=== PATIENT | male | born 1955 | race Caucasian/White ===

== ENCOUNTER → 2019-05-28 | Outpatient (CLI) | payer BC, SELFPAY ==
[2019-05-28 12:44] LABS: ALB/GLOB Ratio 0.8 RATIO (0.9-2.4); AST(SGOT) 39 U/L (15-37); Alanine Aminotransfer ALT/SGPT 38 U/L (16-61); Albumin, Serum 3.3 g/dL (3.2-5.0); Alkaline Phosphatase 64 U/L (45-117); Anion Gap 11 (5-15); BUN 16 mg/dL (7-18); BUN/Creat Ratio 12.8 RATIO (10-20); Calcium,Total 8.2 mg/dL (8.5-10.1); Chloride 97 mmol/L (98-107); Cholesterol 543 mg/dL (200); Creatinine, Serum 1.25 mg/dL (0.70-1.30); EST Glomerular Filtration Rate 62 mL/min (>60); Est Glom Filt Rate - Afr Amer 75 mL/min (>60); Globulin 4.3 g/dL (2.2-4.2); Glucose 255 mg/dL (74-106); High Density Lipoprotein 34 mg/dL; Potassium 4.3 mmol/L (3.5-5.1); Protein, Total 7.6 g/dL (6.4-8.2); Sodium Level 133 mmol/L (136-145); Triglycerides 3893 mg/dL
== END | disposition home or self-care (01) ==
LOC: LAB 08:33
PROVIDERS: Family Provider Family Medicine; PCP Family Medicine; Referring Provider Internal Medicine Cardiovascular Disease; Visit Provider Internal Medicine Cardiovascular Disease
DX: I10 Essential (primary) hypertension (principal); E78.2 Mixed hyperlipidemia
CPT/HCPCS: 36415; 80053; 80061

== ENCOUNTER → 2019-06-04 08:15 | Outpatient (CLI) | payer BC, SELFPAY ==
[2019-06-04 10:36] LABS: AST(SGOT) 41 U/L (15-37); Alanine Aminotransfer ALT/SGPT 36 U/L (16-61); Albumin, Serum 3.6 g/dL (3.2-5.0); Alkaline Phosphatase 62 U/L (45-117); Bilirubin, Direct 0.09 mg/dL (0.00-0.30); Cholesterol 504 mg/dL (200); Globulin 3.7 g/dL (2.2-4.2); High Density Lipoprotein 32 mg/dL; Protein, Total 7.3 g/dL (6.4-8.2); Triglycerides 3453 mg/dL
== END ==
PROVIDERS: Family Provider Family Medicine; PCP Family Medicine
DX: E78.2 Mixed hyperlipidemia (principal)
CPT/HCPCS: 36415; 80061; 80076

== ENCOUNTER → 2020-05-12 | Outpatient (CLI) | payer BC, SELFPAY ==
[2020-05-12 10:50] LABS: AST(SGOT) 25 U/L (15-37); Alanine Aminotransfer ALT/SGPT 37 U/L (16-61); Albumin, Serum 4.2 g/dL (3.2-5.0); Alkaline Phosphatase 42 U/L (45-117); Anion Gap 7 (5-15); BUN 56 mg/dL (7-18); BUN/Creat Ratio 31.6 RATIO (10-20); Calcium,Total 9.6 mg/dL (8.5-10.1); Chloride 107 mmol/L (98-107); Cholesterol 138 mg/dL (200); Creatinine, Serum 1.77 mg/dL (0.70-1.30); EST Glomerular Filtration Rate 41 mL/min (>60); Est Glom Filt Rate - Afr Amer 50 mL/min (>60); Glucose 123 mg/dL (74-106); High Density Lipoprotein 37 mg/dL; Potassium 4.7 mmol/L (3.5-5.1); Protein, Total 8.2 g/dL (6.4-8.2); Sodium Level 138 mmol/L (136-145); Triglycerides 159 mg/dL; Very Low Density Lipoprotein 32 mg/dL (5-40)
[2020-05-12 11:45] LABS: Hemoglobin A1c 6.2 % (3.8-5.6)
== END | disposition home or self-care (01) ==
LOC: LAB 08:34
PROVIDERS: PCP Family Medicine
DX: I25.10 Atherosclerotic heart disease of native coronary artery without angina pectoris (principal); E78.2 Mixed hyperlipidemia
CPT/HCPCS: 36415; 80053; 80061; 83036

== ENCOUNTER 2021-04-14 15:29 | Inpatient (IN) | payer BC, SELFPAY ==
[2021-04-14] VITALS (17 sets, daily range): BP systolic 112–147; BP diastolic 64–96; PULSE 81–114; RESP 18–34; TEMP 36.8–37.6; O2SAT 84–95; BMI 41.5; BMI 40.1
--- NOTE | 2021-04-14 15:52 | CT_ITS ---
STUDY: CTA CHEST REASON FOR EXAM: Male, 65 years old. Shortness of breath evaluation for pulmonary embolism RADIATION DOSAGE (If Supplied By Facility): CTDIvol = ( 19.74 ) mGy, DLP = ( 768.91 ) mGycm TECHNIQUE: The examination was performed with the intravenous administration of IV 75mL Isovue-370. Post-processing of the angiographic images was performed, with multiplanar reformation and 3D reconstruction. Individualized dose optimization techniques were used for this CT. COMPARISON: None. FINDINGS: Examination is technically limited due to a variety of factors, predominantly low enhancement in the pulmonary arteries. Mean attenuation in the main pulmonary artery is 145 HU. Guidelines recommended for diagnostic studies is greater than 250 HU. Some information is available. There is no large central pulmonary embolism in the main, right or left pulmonary artery or proximal most lobar branches. Mid to distal lobar and segmental branches cannot be assessed. However, right ventricle and right atrium are normal. There is no right ventricular strain. Cardiac chambers are normal in size and shape. Pericardium is normal. There is congenital left SVC with normal right IVC. Coronary arteries are severely diseased. There are reactive inflammatory mediastinal lymph nodes. There is severe extensive viral pneumonia. There is no pulmonary edema or pleural effusions. Osseous structures are intact. CT/CTA Chest W/WO Contrast IMPRESSION: 1. Technically limited study. 2. No large/central pulmonary embolism. 3. Refer to ultrasonography of the lower extremity venous system for further evaluation. 4. Severe bilateral viral pneumonia. 5. Severe coronary artery disease. 6. Incidental left SVC congenital variant. Electronically Signed: Rambo Chahal MD at 17:31 EDT Tel , Service support ,
--- NOTE | 2021-04-14 15:54 | EKG12_ITS ---
Test Reason : SOB Blood Pressure : / mmHG Vent. Rate : 102 BPM Atrial Rate : 102 BPM P-R Int : 144 ms QRS Dur : 102 ms QT Int : 342 ms P-R-T Axes : 008 009 064 degrees QTc Int : 445 ms Sinus tachycardia Otherwise normal ECG Confirmed by NATHAN LI, HEBER ([id number]), greeting card editor LEXUS QUINN ([id number]) on 04/16/2021 9:28:12 AM Referred By: BRITTNI/PAPA Confirmed By:HEBER EVANS MD
[2021-04-14] MEDS: MethylPREDNISolone 125 MG/2 ML Vial IV (16:09)
[2021-04-14 16:14] LABS: Absolute Lymphocyte Count 0.67 X10^3/uL (0.83-4.51); Absolute Neutrophil Count 4.2 X10^3/uL (2.0-7.7); Basophil# 0.01 X10^3/uL; Basophil% 0.2 % (0-1); Eosinophil# 0.01 X10^3/uL; Eosinophils% 0.2 % (0-5); Hematocrit 44.9 % (40-54); Hemoglobin 14.8 g/dL (13.0-16.5); Lymphocyte # 0.67 X10^3/ul (0.83-4.51); Lymphocyte % 12.5 % (19-41); Mean Platelet Vol. 9.4 fl (6.2-12.0); Monocyte% 7.5 % (0-10); NRBC Flagged by Analyzer 0 % (0-5); Neutrophil # 4.16 X10^3/uL (2.7-7.7); Neutrophil % 77.5 % (47-70); Platelet Count 197 K/mm3 (150-450); RBC Distribution Width CV 13.9 % (11.6-14.6); RBC Distribution Width SD 44.9 fl (35.1-43.9); White Blood Count 5.4 K/mm3 (4.4-11.0)
[2021-04-14 16:18] LABS: Prothrombin Time (Protime)PT. 12.8 SECONDS (11.7-14.9)
[2021-04-14 16:19] LABS: Partial Thromboplast Time 37.2 Seconds (24.1-36.2)
[2021-04-14 16:36] LABS: BNP,B-Type NATRIURETIC PEPTIDE 5.9 pg/mL (0-100)
[2021-04-14 16:38] LABS: Anion Gap 8 (5-15); BUN 44 mg/dL (7-18); BUN/Creat Ratio 22.2 RATIO (10-20); Calcium,Total 8.6 mg/dL (8.5-10.1); Chloride 106 mmol/L (98-107); Creatinine, Serum 1.98 mg/dL (0.70-1.30); EST Glomerular Filtration Rate 36 mL/min (>60); Est Glom Filt Rate - Afr Amer 44 mL/min (>60); Estimated Creatinine Clearance 41.37 ml/min; Glucose 184 mg/dL (74-106); Potassium 4.7 mmol/L (3.5-5.1); Sodium Level 135 mmol/L (136-145)
[2021-04-14 16:43] LABS: Lactic Acid 1.7 mmol/L (0.4-1.9)
--- NOTE | 2021-04-14 17:22 | HP.PCM.HOS_ITS ---
HPI - General HPI Narrative MEGAN CLEARY, is a 65 M who presents [facility] Medical History (Updated 04/14/21 @ 17:[address] Lashaun Rothman, DO) CAD (coronary artery disease) Diabetes mellitus, type 2 High cholesterol HTN (hypertension) Morbid obesity Allergy/AdvReac Type Severity Reaction Status Date / Time No Known Allergies Allergy Verified 04/14/21 15:38 Surgical History (Updated 04/14/21 @ 15:40 by Rosanne Horn) Stented coronary artery Social History Smoking Status: Never smoker Vital Signs Vital Signs Vital Signs: 04/14/21 15:30 04/14/21 15:38 04/14/21 16:05 Temperature 99.7 F H 99.7 F H Temperature Source Oral Oral Pulse Rate 103 H 103 H 114 H Respiratory Rate 22 H 22 H 26 H Respiratory Effort Short of Breath Respiratory Pattern Tachypnea Blood Pressure 133/72 H 133/72 H Blood Pressure Mean 92 92 Pulse Ox 84 84 90 Oxygen Delivery Method Nasal Cannula Nasal Cannula Oxygen Flow Rate (L/min) 6 6 Fraction of Inspired Oxygen (FIO2) 92 04/14/21 16:38 Temperature 99.5 F H Temperature Source Oral Pulse Rate 93 Respiratory Rate 19 H Respiratory Effort Respiratory Pattern Blood Pressure 125/67 H Blood Pressure Mean 86 Pulse Ox 91 Oxygen Delivery Method Airvo Oxygen Flow Rate (L/min) 55 Fraction of Inspired Oxygen (FIO2) 92 Weight Weight: 139.2 kg Body Mass Index (BMI) 41.5 Results Lab / Micro Data Result Diagrams: 04/14/21 15:56 04/14/21 15:56 Labs: Laboratory Results - last 24 hr 04/14/21 15:56: WBC 5.4, RBC 5.10, Hgb 14.8, Hct 44.9, MCV 88.0, MCH 29.0, MCHC 33.0, RDW Std Deviation 44.9 H, RDW Coeff of Amaya 13.9, Plt Count 197, MPV 9.4, Immature Gran % (Auto) 2.100 H, Neut % (Auto) 77.5 H, Lymph % (Auto) 12.5 L, [place] % (Auto) 7.5, Eos % (Auto) 0.2, Baso % (Auto) 0.2, Absolute Neuts (auto) 4.2, Absolute Lymphs (auto) 0.67 L, Nucleated RBC % 0 04/14/21 15:56: PT 12.8, INR 1.0, APTT 37.2 H 04/14/21 15:56: Sodium 135 L, Potassium 4.7, Chloride 106, Carbon Dioxide 21.0, Anion Gap 8, BUN 44 H, Creatinine 1.98 H, Estim Creat Clear Calc 41.37, Est GFR (MDRD) Af Amer 44 L, Est GFR (MDRD) Non-Af 36 L, BUN/Creatinine Ratio 22.2 H, Glucose 184 H, Calcium 8.6, Troponin I High Sens 12.0 04/14/21 15:56: Lactic Acid 1.7 04/14/21 15:56: B-Natriuretic Peptide 5.9 Micro: Microbiology 04/14/21 15:56 Mucosa - Nose SARS-CoV-2 Antigen (Rapid) - Final Assessment & Plan Assessment/Plan (1) Acute respiratory failure with hypoxia: (2) Stage 3b chronic kidney disease: (3) BREE (acute kidney injury): (4) Hyponatremia: (5) Diabetes mellitus, type 2: (6) Pneumonia due to COVID-19 virus: PLAN: Acute hypoxic respiratory failure secondary to COVID-19 pneumonia -Supportive care -Start remdesivir day 1 of 5 -Start Decadron day 1 of 10 -Supplemental oxygen--> patient is currently on airVo with a flow rate of 55 L/min and FiO2 of 92% -Start of symptoms was -Patient was not vaccinated -Recommend vaccination after patient is removed from quarantine -Consult pulmonary/critical care medicine COVID-19 pneumonia -See above BREE on CKD stage IIIb -Serum creatinine is elevated from baseline -We will give gentle hydration with 1 L normal saline then discontinue -Repeat BMP in a.m. Hyponatremia -Mild -Serum sodium 135 -Suspect related to acute COVID-19 infection DM-2 -Accu-Cheks before meals and at bedtime -Carb controlled cardiac diet -Sliding scale insulin -Suspect patient may need some basal insulin with being on steroids CAD/HPL/HTN -CTA of the chest shows a large burden of coronary artery disease -We will cycle cardiac enzymes with ongoing respiratory distress Morbid obesity -Recommend weight loss -Complicates overall medical care, prognosis, and outcomes DVT prophylaxis -Lovenox 40 mg twice daily CODE STATUS -Full code Charges/Coding Procedures Hospitalists Procedures: 79695 Critial Care 1st Hr
--- NOTE | 2021-04-14 19:26 | EDS_ITS ---
HPI History of Present Illness Chief Complaint: Shortness of Breath Narrative Narrative: Patient is a 65-year-old male who states he has no history of lung disorder or need for supplemental oxygen. He reports that over the past 7 to 10 days he has had congestion cough and upset stomach. He reports he will feel like he is getting better for a day or 2 and then symptoms return. He reports today he was having increased shortness of breath and secondary to this EMS was called. EMS states when they arrived the patient's room air pulse ox was 70%. The patient denies any previous history of DVT/PE. He states he has no history of lung disorder. He denies any chest pain associated with this [facility] Medical History CAD (coronary artery disease) Diabetes mellitus, type 2 High cholesterol HTN (hypertension) Morbid obesity Home Medications aspirin 81 mg PO DAILY 04/14/21 [History Last Taken Unknown] atorvastatin 80 mg PO DAILY 04/14/21 [History Last Taken Unknown] fenofibrate 160 mg PO DAILY 04/14/21 [History Last Taken Unknown] hydrochlorothiazide 12.5 mg PO DAILY 04/14/21 [History Last Taken Unknown] metformin 1,000 mg PO BID 04/14/21 [History Last Taken Unknown] metoprolol succinate 50 mg PO DAILY 04/14/21 [History Last Taken Unknown] ramipril 10 mg PO DAILY 04/14/21 [History Last Taken Unknown] spironolactone 25 mg PO DAILY 04/14/21 [History Last Taken Unknown] ticagrelor [Brilinta] 90 mg PO BID 04/14/21 [History Last Taken Unknown] Allergy/AdvReac Type Severity Reaction Status Date / Time No Known Allergies Allergy Verified 04/14/21 15:38 Surgical History (Updated 04/14/21 @ 15:40 by Rosanne Horn) Stented coronary artery Social History Smoking Status: Never smoker ROS [facility] ED Constitutional Constitutional ED: Reports chills; Denies fever(s) Eyes Eyes: Denies change in vision ENT ENT ED: Reports rhinorrhea; Denies sore throat Cardiovascular Cardiovascular: Denies chest pain or palpitations Respiratory/Chest Respiratory/Chest: Reports cough and dyspnea Gastrointestinal Gastrointestinal: Reports nausea; Denies abdominal pain, diarrhea or vomiting Genitourinary Genitourinary ED: Denies dysuria Musculoskeletal Musculoskeletal: Reports myalgias Integumentary Denies rash Neurologic Neurologic: Denies headache(s) Hematologic/Lymphatic Hematologic/Lymphatic: Denies easy bleeding or easy bruising EXAM Physical Exam Const Vital Signs: 04/14/21 15:30 04/14/21 15:38 04/14/21 16:05 Temperature 99.7 F H 99.7 F H Temperature Source Oral Oral Pulse Rate 103 H 103 H 114 H Respiratory Rate 22 H 22 H 26 H Respiratory Effort Short of Breath Respiratory Pattern Tachypnea Blood Pressure 133/72 H 133/72 H Blood Pressure Mean 92 92 Pulse Ox 84 84 90 Oxygen Delivery Method Nasal Cannula Nasal Cannula Oxygen Flow Rate (L/min) 6 6 Fraction of Inspired Oxygen (FIO2) 92 04/14/21 16:38 04/14/21 17:00 04/14/21 17:30 Temperature 99.5 F H 99.4 F H Temperature Source Oral Temporal Pulse Rate 93 111 H 93 Respiratory Rate 19 H 18 21 H Respiratory Effort Respiratory Pattern Blood Pressure 125/67 H 128/76 H Blood Pressure Mean 86 93 Pulse Ox 91 89 91 Oxygen Delivery Method Airvo Oxygen Flow Rate (L/min) 55 Fraction of Inspired Oxygen (FIO2) 92 84 04/14/21 18:00 04/14/21 18:05 04/14/21 19:00 Temperature 99.4 F H 98.6 F Temperature Source Temporal Oral Pulse Rate 93 81 Respiratory Rate 21 H 25 H Respiratory Effort Respiratory Pattern Blood Pressure 131/77 H 112/96 H Blood Pressure Mean 95 101 Pulse Ox 91 93 Oxygen Delivery Method Airvo Airvo Oxygen Flow Rate (L/min) 60 60 Fraction of Inspired Oxygen (FIO2) 91 Positive well nourished and well developed General Appearance ED: well developed HEENT HEENT Narrative: No tongue or lip swelling no oral lesions no airway edema or compromise atraumatic Eyes PERRL and EOMs intact bilaterally Neck supple and no JVD Lymph Lymphatic Narrative: Positive anterior cervical lymphadenopathy noted Resp Resp Narrative: Breath sounds are diminished throughout with diffuse inspiratory and expiratory wheezes. Despite his low room air pulse ox he has no nasal flaring or retractions or tachypnea and just mild accessory muscle use Cardio Cardio Narrative: Slightly tachycardic rate with regular rhythm. Radial pulses are plus 2 out of 4 bilaterally are equal and symmetric GI non-tender and non-distended Auscultation: normoactive bowel sounds Palpation: soft Extremity Extremity Narrative: No asymmetric edema no pitting edema negative Homans' sign bilaterally Neuro oriented x3 Sensorium / Orientation: alert and oriented to person Psych mental status grossly normal Skin Lesions: no lesions Rashes: no rashes MDM MDM MDM Narrative Medical decision making narrative: Patient presented to the ER with room air pulse ox in the 70s. However had minimal increased work of breathing. His history and exam is most consistent for Covid with hypoxia mild tachycardia I did elect to perform CTA of his chest. CTA revealed no PE but did show changes consistent with a viral pneumonia. This is most likely Covid despite the rapid test being negative and therefore on top of the Solu-Medrol he was treated with Decadron. Patient was placed on high flow nasal cannula oxygen which did help improve his pulse ox. However as he does not require supplemental oxygen at home and is needing at this time secondary to the inflammatory changes present on his exam he will be kept in the hospital for further care Lab Data Labs: Laboratory Results - last 24 hr 04/14/21 04/14/21 04/14/21 15:56 15:56 15:56 WBC 5.4 RBC 5.10 Hgb 14.8 Hct 44.9 MCV 88.0 MCH 29.0 MCHC 33.0 RDW Std Deviation 44.9 H RDW Coeff of Amaya 13.9 Plt Count 197 MPV 9.4 Immature Gran % (Auto) 2.100 H Neut % (Auto) 77.5 H Lymph % (Auto) 12.5 L [place] % (Auto) 7.5 Eos % (Auto) 0.2 Baso % (Auto) 0.2 Absolute Neuts (auto) 4.2 Absolute Lymphs (auto) 0.67 L Nucleated RBC % 0 PT 12.8 INR 1.0 APTT 37.2 H Sodium 135 L Potassium 4.7 Chloride 106 Carbon Dioxide 21.0 Anion Gap 8 BUN 44 H Creatinine 1.98 H Estim Creat Clear Calc 41.37 Est GFR (MDRD) Af Amer 44 L Est GFR (MDRD) Non-Af 36 L BUN/Creatinine Ratio 22.2 H Glucose 184 H Lactic Acid Calcium 8.6 Troponin I High Sens 12.0 B-Natriuretic Peptide 04/14/21 04/14/21 15:56 15:56 WBC RBC Hgb Hct MCV MCH MCHC RDW Std Deviation RDW Coeff of Amaya Plt Count MPV Immature Gran % (Auto) Neut % (Auto) Lymph % (Auto) [place] % (Auto) Eos % (Auto) Baso % (Auto) Absolute Neuts (auto) Absolute Lymphs (auto) Nucleated RBC % PT INR APTT Sodium Potassium Chloride Carbon Dioxide Anion Gap BUN Creatinine Estim Creat Clear Calc Est GFR (MDRD) Af Amer Est GFR (MDRD) Non-Af BUN/Creatinine Ratio Glucose Lactic Acid 1.7 Calcium Troponin I High Sens B-Natriuretic Peptide 5.9 Radiography Diagnostic Testing: Radiology Impression Chest CTA 04/14/21 15:52 IMPRESSION: 1. Technically limited study. 2. No large/central pulmonary embolism. 3. Refer to ultrasonography of the lower extremity venous system for further evaluation. 4. Severe bilateral viral pneumonia. 5. Severe coronary artery disease. 6. Incidental left SVC congenital variant. Electronically Signed: Rambo Chahal MD at 17:31 EDT Tel , Service support , Critical Care Time Critical Care Time: Yes Critical care time (excluding procedures): 30-74 minutes and - (Please note critical care time of 33 minutes) Discharge Plan Triage Chief Complaint: Shortness of Breath ED Provider: Gopi Andrade Dx/Rx/DC Orders Clinical Impression: Acute respiratory failure with hypoxia, Pneumonia due to COVID-19 virus Prescriptions: No Action atorvastatin 80 mg Tablet 80 mg PO DAILY RF: 0 metoprolol succinate 50 mg Tablet Extended Release 24 Hr 50 mg PO DAILY RF: 0 spironolactone 25 mg Tablet 25 mg PO DAILY RF: 0 metformin 1,000 mg Tablet 1,000 mg PO BID RF: 0 aspirin 81 mg Tablet 81 mg PO DAILY RF: 0 ramipril 10 mg Capsule 10 mg PO DAILY RF: 0 fenofibrate 160 mg Tablet 160 mg PO DAILY RF: 0 hydrochlorothiazide 12.5 mg Tablet 12.5 mg PO DAILY RF: 0 Brilinta 90 mg Tablet 90 mg PO BID RF: 0 Primary Care Provider: Pete Perez Referrals: Pete Perez MD [Primary Care Provider] - Disposition Disposition: Acute Care Hospital [facility]
--- NOTE | 2021-04-14 19:44 | HP.PCM.HOS_ITS ---
HPI - General General Date of Admission: 04/14/21 Date of Service: 04/14/21 Chief Complaint: Shortness of breath for 4 days HPI Narrative MEGAN CLEARY, is a 65 M with her comorbidities as listed below came to ER with 8 days of symptoms of URI and then shortness of breath. His symptomatology started with sinus congestion, sore throat, URI for 3 to 4 days and then progressed to shortness of breath on exertion, low-grade fever and dry cough. As per EMS his temperature was noted 100 Fahrenheit. Patient has history of pneumonia many years ago. He denies chest pressure or pain but has diffuse tightness on deep breathing. History of coronary artery disease status post stents, hypertension, dyslipidemia and diabetes mellitus type 2 [facility] Medical History CAD (coronary artery disease) Diabetes mellitus, type 2 High cholesterol HTN (hypertension) Morbid obesity Home Medications aspirin 81 mg PO DAILY 04/14/21 [History Last Taken Unknown] atorvastatin 80 mg PO DAILY 04/14/21 [History Last Taken Unknown] fenofibrate 160 mg PO DAILY 04/14/21 [History Last Taken Unknown] hydrochlorothiazide 12.5 mg PO DAILY 04/14/21 [History Last Taken Unknown] metformin 1,000 mg PO BID 04/14/21 [History Last Taken Unknown] metoprolol succinate 50 mg PO DAILY 04/14/21 [History Last Taken Unknown] ramipril 10 mg PO DAILY 04/14/21 [History Last Taken Unknown] spironolactone 25 mg PO DAILY 04/14/21 [History Last Taken Unknown] ticagrelor [Brilinta] 90 mg PO BID 04/14/21 [History Last Taken Unknown] Allergy/AdvReac Type Severity Reaction Status Date / Time No Known Allergies Allergy Verified 04/14/21 15:38 other (His mother has diabetes mellitus.) Surgical History Stented coronary artery Social History Smoking Status: Never smoker ROS ROS Narrative Constitutional: Reports fatigue and weakness on exertion. HEENT: Reports systems reviewed and no addt'l complaints, except as documented Respiratory/Chest: As mentioned in HPI Gastrointestinal: Denies coffee ground emesis, hematemesis or vomiting. Mild loss of appetite. Denies loss of taste or smell. Genitourinary: Dark urine for 2 to 3 days denies burning urination or new urinary tract symptoms Musculoskeletal: Reports joint pain and limited range of motion Neurologic: Denies seizure-like activity skin: No ulcer. No rash Endocrinology: Reports systems reviewed and no addt'l complaints, except as doc umented Hematologic/Lymphatic: Reports systems reviewed and no addt'l complaints, except as documented Rest 12 ROS are negative except as mentioned in HPI Vital Signs Vital Signs Vital Signs: 04/14/21 15:30 04/14/21 15:38 04/14/21 16:05 Temperature 99.7 F H 99.7 F H Temperature Source Oral Oral Pulse Rate 103 H 103 H 114 H Respiratory Rate 22 H 22 H 26 H Respiratory Effort Short of Breath Respiratory Pattern Tachypnea Blood Pressure 133/72 H 133/72 H Blood Pressure Mean 92 92 Pulse Ox 84 84 90 Oxygen Delivery Method Nasal Cannula Nasal Cannula Oxygen Flow Rate (L/min) 6 6 Fraction of Inspired Oxygen (FIO2) 92 04/14/21 16:38 04/14/21 17:00 04/14/21 17:30 Temperature 99.5 F H 99.4 F H Temperature Source Oral Temporal Pulse Rate 93 111 H 93 Respiratory Rate 19 H 18 21 H Respiratory Effort Respiratory Pattern Blood Pressure 125/67 H 128/76 H Blood Pressure Mean 86 93 Pulse Ox 91 89 91 Oxygen Delivery Method Airvo Oxygen Flow Rate (L/min) 55 Fraction of Inspired Oxygen (FIO2) 92 84 04/14/21 18:00 04/14/21 18:05 04/14/21 19:00 Temperature 99.4 F H 98.6 F Temperature Source Temporal Oral Pulse Rate 93 81 Respiratory Rate 21 H 25 H Respiratory Effort Respiratory Pattern Blood Pressure 131/77 H 112/96 H Blood Pressure Mean 95 101 Pulse Ox 91 93 Oxygen Delivery Method Airvo Airvo Oxygen Flow Rate (L/min) 60 60 Fraction of Inspired Oxygen (FIO2) 91 Weight Weight: 306 lb 14.135 oz Body Mass Index (BMI) 41.5 Physical Exam Narrative General: Alert, Oriented x3, Cooperative HEENT: Atraumatic, PERRLA, EOMI, Normocephalic Oral: No Gingival or Mucosal Lesions/ Ulcerations Neck: Supple, No JVD, Negative Carotid Bruits Lungs: Air entry diminished in bilateral lung bases. Bilateral expiratory wheezing present Cardiovascular: Sinus tachycardia, Normal S1, Normal S2, No murmurs Abdomen: Bowel Sounds Present, Soft, Non Tender, Non-Distended : No renal angle tenderness. No suprapubic tenderness. Extremities: Mild 2+ nonpitting chronic leg edema, Capillary Refill Less than 3 Seconds Skin: Venous hypertension/lymphedema. No breakdown Musculoskeletal: No Tenderness to Palpation of Joints or Extremities Neurological: Cranial nerves II-XII grossly intact, DTR 2+/4 and Symmetrical, Neuro grossly intact Psych/Mental Status: Normal Affect, Appropriate. Results Lab / Micro Data Result Diagrams: 04/14/21 15:56 04/14/21 15:56 Labs: Laboratory Results - last 24 hr 04/14/21 15:56: WBC 5.4, RBC 5.10, Hgb 14.8, Hct 44.9, MCV 88.0, MCH 29.0, MCHC 33.0, RDW Std Deviation 44.9 H, RDW Coeff of Amaya 13.9, Plt Count 197, MPV 9.4, Immature Gran % (Auto) 2.100 H, Neut % (Auto) 77.5 H, Lymph % (Auto) 12.5 L, [place] % (Auto) 7.5, Eos % (Auto) 0.2, Baso % (Auto) 0.2, Absolute Neuts (auto) 4.2, Absolute Lymphs (auto) 0.67 L, Nucleated RBC % 0 04/14/21 15:56: PT 12.8, INR 1.0, APTT 37.2 H 04/14/21 15:56: Sodium 135 L, Potassium 4.7, Chloride 106, Carbon Dioxide 21.0, Anion Gap 8, BUN 44 H, Creatinine 1.98 H, Estim Creat Clear Calc 41.37, Est GFR (MDRD) Af Amer 44 L, Est GFR (MDRD) Non-Af 36 L, BUN/Creatinine Ratio 22.2 H, Glucose 184 H, Calcium 8.6, Troponin I High Sens 12.0 04/14/21 15:56: Lactic Acid 1.7 04/14/21 15:56: B-Natriuretic Peptide 5.9 Micro: Microbiology 04/14/21 15:56 Mucosa - Nose SARS-CoV-2 Antigen (Rapid) - Final Radiology Impression Chest CTA 04/14/21 15:52 IMPRESSION: 1. Technically limited study. 2. No large/central pulmonary embolism. 3. Refer to ultrasonography of the lower extremity venous system for further evaluation. 4. Severe bilateral viral pneumonia. 5. Severe coronary artery disease. 6. Incidental left SVC congenital variant. Electronically Signed: Rambo Chahal MD at 17:31 EDT Tel , Service support , Assessment & Plan Assessment/Plan (1) Acute respiratory failure with hypoxia: (2) Pneumonia due to COVID-19 virus: PLAN: This 61 focal gentleman came to ER with shortness of breath and low- grade fever. 1. Acute hypoxic respiratory failure with high suspicion of COVID-19 pneumonia: Rapid antigen is negative. COVID-19 PCR is. Patient empirically given dexamethasone 10 mg IV in ED. Will admit in ICU as patient is on high flow oxygen. Senior Sql Server Database Developer consult. Patient agreeable for intubation and ventilator if needed. 2. High suspicion of COVID-19 pneumonia: Patient is not vaccinated. CTPA chest negative for PE but severe bilateral viral pneumonia, groundglass opacity. Discussed with the ID and consulted for further opinion. We will start empiric IV dexamethasone and remdesivir. 3. Acute kidney injury on CKD stage IIIb: Patient last creatinine was 1.77 in July 2020. Currently BUN/creatinine 44/1.98. IV fluid normal saline 125 mill per hour. Monitor intake and output. Coronary artery disease status post stents: Patient is on Brilinta, aspirin, ramipril, spironolactone, atorvastatin and metoprolol succinate. Hold ramipril spironolactone and fenofibrate. 4. Diabetes mellitus type 2: Accu-Chek insulin coverage blood sliding scale. Hold Metformin. Glucose is elevated. 5. Dyslipidemia with morbid obesity: Continue statin. 6. Hypertension: BP monitoring with titration of antihypertensive medication 7. VTE prophylaxis: Heparin 5000 subcutaneous 3 times daily. Living will/advanced directive/end of life care: Patient does not have living will or advanced directive or power of finance attorney for health. After discussion of benefits/risks procedures involved with full code, DNR CC arrest and DNR CC, the patient opted for Full code. Patient does want artificial life support including intubation, tube feed, ventilator and/chest compression, central venous catheter, vasopressor and DC shock if needed Total time spent in [id number] encounter in discussion of advanced directive 16 minutes. Charges/Coding Visit Charges Inpatient E&M: 27978 Init Hosp L3 Procedures Hospitalists Procedures: 30151 Advncd Care Plan 30 Min
[2021-04-14] MEDS: dexAMETHasone 10 MG/ML Vial IV (20:14)
[2021-04-14 20:24] LABS: Probe Check PASS; Specimen Processing Control PASS
[2021-04-14 21:06] LABS: Allen Test Positive; Base Excess -7 mmol/L (-2 to +2); Bicarbonate 17.5 mmol/L (22-26); Blood Gas Specimen Type ART; FI02 92; O2 Delivery Device HFOV; PO2 80 mmHG (75-100); SITE L Radial; SO2 96 % (95-99); Total Carbon Dioxide 18 mmol/L; pH 7.39 (7.35-7.45)
[2021-04-14 21:46] LABS: Magnesium 2.3 mg/dL (1.6-2.6)
[2021-04-14] MEDS: Heparin Injection (Vial) 5,000 UNIT/ML VIAL 5000 UNIT SC (22:02)
[2021-04-14] MEDS: TICAGRELOR 90 MG TABLET PO (22:03)
[2021-04-14] MEDS: Atorvastatin Calcium 80 MG Tablet PO (22:03)
[2021-04-14] MEDS: 0.9% Saline Lock 10 ML Syringe IV (22:08)
[2021-04-14] MEDS: 0.9% Normal Saline 1,000 ML 125 ML IV (22:12)
[2021-04-14 22:20] LABS: AST(SGOT) 41 U/L (15-37); Alanine Aminotransfer ALT/SGPT 27 U/L (16-61); Alkaline Phosphatase 52 U/L (45-117); Globulin 4.9 g/dL (2.2-4.2); Protein, Total 7.9 g/dL (6.4-8.2)
[2021-04-14 23:15] LABS: Bedside Glucose 217 mg/dL (70-110)
[2021-04-15] VITALS (34 sets, daily range): BP systolic 105–166; BP diastolic 62–82; PULSE 59–87; RESP 12–30; TEMP 35.8–36.9; O2SAT 86–98
[2021-04-15 05:06] LABS: Absolute Lymphocyte Count 0.48 X10^3/uL (0.83-4.51); Basophil# 0.02 X10^3/uL; Basophil% 0.7 % (0-1); Hematocrit 44.1 % (40-54); Hemoglobin 14.3 g/dL (13.0-16.5); Lymphocyte # 0.48 X10^3/ul (0.83-4.51); Lymphocyte % 17.2 % (19-41); Mean Corp Hgb Conc 32.4 g/dL (32-36); Mean Corpuscular Volume 89.5 fL (80-94); Mean Platelet Vol. 9.5 fl (6.2-12.0); Monocyte% 7.2 % (0-10); NRBC Flagged by Analyzer 0 % (0-5); Neutrophil # 1.97 X10^3/uL (2.7-7.7); Neutrophil % 70.6 % (47-70); POSITIVE DIFFERENTIAL YES; POSITIVE MORPHOLOGY YES; Platelet Count 183 K/mm3 (150-450); RBC Distribution Width SD 46.1 fl (35.1-43.9); Red Blood Count 4.93 M/mm3 (4.6-6.2); White Blood Count 2.8 K/mm3 (4.4-11.0)
[2021-04-15 05:32] LABS: ALB/GLOB Ratio 0.6 RATIO (0.9-2.4); AST(SGOT) 35 U/L (15-37); Alanine Aminotransfer ALT/SGPT 27 U/L (16-61); Albumin, Serum 2.8 g/dL (3.2-5.0); Alkaline Phosphatase 54 U/L (45-117); Anion Gap 11 (5-15); BUN 39 mg/dL (7-18); BUN/Creat Ratio 24.8 RATIO (10-20); Calcium,Total 8.5 mg/dL (8.5-10.1); Chloride 106 mmol/L (98-107); Creatinine, Serum 1.57 mg/dL (0.70-1.30); EST Glomerular Filtration Rate 47 mL/min (>60); Est Glom Filt Rate - Afr Amer 57 mL/min (>60); Estimated Creatinine Clearance 52.17 ml/min; Ferritin 1601 ng/mL (26-388); Globulin 4.9 g/dL (2.2-4.2); Glucose 312 mg/dL (74-106); Potassium 4.7 mmol/L (3.5-5.1); Protein, Total 7.7 g/dL (6.4-8.2); Sodium Level 136 mmol/L (136-145)
[2021-04-15 05:35] LABS: Differential Indicated SCAN CRITERIA MET
[2021-04-15] MEDS: 0.9% Normal Saline 1,000 ML 125 ML IV (06:12)
[2021-04-15] MEDS: Heparin Injection (Vial) 5,000 UNIT/ML VIAL 5000 UNIT SC ×3 (06:50→21:25)
[2021-04-15] MEDS: dexAMETHasone 4 MG Tablet 6 MG PO (09:34)
[2021-04-15] MEDS: TICAGRELOR 90 MG TABLET PO ×2 (09:34→21:25)
[2021-04-15] MEDS: hydroCHLOROthiazide 12.5mg 12.5 MG PO (09:35)
[2021-04-15] MEDS: Metoprolol(XL)Succ 50 MG Tablet PO (09:35)
[2021-04-15] MEDS: Aspirin E.C. 81 MG Tablet PO (09:35)
[2021-04-15] MEDS: Insulin Lispro 100 UNIT/ML INSULN.PEN SC ×4 (09:36→21:24)
--- NOTE | 2021-04-15 10:06 | CON.PCM.CC_ITS ---
Assessment & Plan Assessment/Plan (1) Pneumonia due to COVID-19 virus: (2) Acute respiratory failure with hypoxia: (3) Stage 3b chronic kidney disease: PLAN: RECOMMENDATIONS: 1. Discontinue IV fluids 2. Initiate Decadron. Await ID recommendations on Remdesivir 3. Continue telemetry and cardiac medications 4. Hold EDGAR inhibitor given acute kidney injury 5. Possibly increase Lantus pending blood sugar checks 6. As needed antihypertensives if necessary IMPRESSIONS: 1. Acute hypoxic respiratory failure secondary to COVID-19 pneumonia Patient has tested positive for COVID-19 and does not have any immunization. Patient was given Decadron in the ER. Patient is open to intubation if necessary. Improvement following BiPAP therapy would be suggestive of derecruitment. Continue to increase activity as tolerated. An ticipate continuing BiPAP with sleep as patient likely has an element of undiagnosed JOSÉ ANTONIO. Will need to follow blood sugars closely given Decadron therapy in the history of diabetes mellitus. IV fluids will be discontinued as this has been shown to increase risk for intubation. Patient is reporting 7 to 10 days of symptoms. Defer to infectious disease, but remdesivir may not be indicated. Decadron has been ordered. 2. Acute on chronic kidney disease stage IIIb Patient with only a slight increase in creatinine compared to July. Will discontinue IV fluids as this can worsen problem #1. We will hold EDGAR inhibitor and spironolactone. No indication for renal replacement therapy at this time. 3. Diabetes mellitus type 2/morbid obesity/dy slipidemia/hypertension/coronary artery disease status post stents Complicates care, management, recovery and prognosis. If patient is to be continued on Remdesivir, could consider discontinuation of statin. Monitor blood sugars. Patient may require increase basal insulin. Continue telemetry to evaluate for arrhythmias given extensive coronary artery disease. TIME: 33 minutes critical care time spent addressing patient's acute hypoxic re spiratory failure, hyperglycemia, acute kidney injury, hypertension, review of all data and collaboration with care team (7 AM to 9 AM) HPI Consult Data Date of Consult: 04/15/21 HPI Narrative HPI Narrative: MEGAN CLEARY is a 65 M, with past medical history listed below, who presents to [facility] on 04/14/2021 secondary to progressive nausea, productive cough and shortness of breath. Patient reportedly had initially started off approximately 7 days ago with a sore throat and upset stomach. Patient states this started to improve for a day or 2 then patient started to develop shortness of breath. EMS was called and patient reportedly had saturations of 70% on room air. Patient does not have any history of previous thrombophilia or respiratory issues that require supplemental oxygen. Patient did not report any chest pain associated with this. Patient does state that he did not receive a COVID-19 vaccination. In the ER, patient was noted to be 99.7 ?F, tachycardic at 114 bpm, normotensive, but requiring Airvo to maintain saturations. Laboratory work-up showed an unremarkable CBC, coagulation studies, lactate and BNP. Patient's creatinine was elevated at 1.98, but other electrolytes were within normal limits. Troponin was normal. Patient had a CTA of the chest showing no PE, but significant bilateral groundglass opacities. Patient also noted to have significant coronary calcifications. Patient was found to be positive for COVID-19 and was given Decadron. Patient was transferred to the intensive care unit for further evaluation. Since being in the intensive care unit, patient's hypoxia continued to worsen. Patient was saturating approximately 91% on 93% Airvo with 60 L of flow. Patient was transitioned over to BiPAP therapy with some improvement was able to drop to 65% FiO2. Patient states he feels comfortable and improved since being in the ER. Patient is open to being intubated if necessary. 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 Patient has never had pulmonary function test or seen a electric locomotive crane operator. Patient has never required an inhaler previously. Patient did report darkening of his urine recently and the computer shows that his baseline creatinine is approximately 1.8. Review of systems otherwise negative from a constitutional, HEENT, respiratory, cardiovascular, GI, genitourinary, musculoskeletal, skin, neurologic, psychiatric and hematologic system unless stated above. [facility] Medical History CAD (coronary artery disease) Diabetes mellitus, type 2 High cholesterol HTN (hypertension) Morbid obesity Home Medications aspirin 81 mg PO DAILY 04/14/21 [History Last Taken Unknown] atorvastatin 80 mg PO DAILY 04/14/21 [History Last Taken Unknown] fenofibrate 160 mg PO DAILY 04/14/21 [History Last Taken Unknown] hydrochlorothiazide 12.5 mg PO DAILY 04/14/21 [History Last Taken Unknown] metformin 1,000 mg PO BID 04/14/21 [History Last Taken Unknown] metoprolol succinate 50 mg PO DAILY 04/14/21 [History Last Taken Unknown] ramipril 10 mg PO DAILY 04/14/21 [History Last Taken Unknown] spironolactone 25 mg PO DAILY 04/14/21 [History Last Taken Unknown] ticagrelor [Brilinta] 90 mg PO BID 04/14/21 [History Last Taken Unknown] Allergy/AdvReac Type Severity Reaction Status Date / Time No Known Allergies Allergy Verified 04/14/21 15:38 Surgical History Stented coronary artery Social History Smoking Status: Never smoker ROS ROS Narrative See HPI Physical Exam Const alert, oriented x3 and no apparent distress Constitutional Narrative: Good BiPAP synchrony General Appearance: cooperative, well developed and on BiPAP Nutritional Appearance: morbidly obese HEENT normocephalic, head/scalp atraumatic and moist oral mucous membranes Eyes PERRL and EOMs intact bilaterally Neck full ROM and no lymphadenopathy Chest inspection of chest normal Resp normal respiratory effort and no use of accessory muscles Auscultation: diminished lung sounds; Negative for rales, rhonchi or wheezes Percussion: Negative for dullness Cardio regular rate, regular rhythm, S1 normal heart sound, S2 normal heart sound, no murmurs, no rub and no gallops GI normal to inspection, nondistended, normoactive bowel sounds no CVA tenderness Extremity no clubbing, cyanosis or edema Skin Skin Narrative: Venous stasis changes of bilateral lower extremities Neuro oriented x3, CN's II-XII intact bilaterally, moves all extremities and no focal motor deficits Psych cooperative and affect normal Lab / Micro Data Result Diagrams: 04/15/21 04:45 04/15/21 04:45 Labs: Laboratory Results - last 24 hr 04/14/21 15:56: WBC 5.4, RBC 5.10, Hgb 14.8, Hct 44.9, MCV 88.0, MCH 29.0, MCHC 33.0, RDW Std Deviation 44.9 H, RDW Coeff of Amaya 13.9, Plt Count 197, MPV 9.4, Immature Gran % (Auto) 2.100 H, Neut % (Auto) 77.5 H, Lymph % (Auto) 12.5 L, [place] % (Auto) 7.5, Eos % (Auto) 0.2, Baso % (Auto) 0.2, Absolute Neuts (auto) 4.2, Absolute Lymphs (auto) 0.67 L, Nucleated RBC % 0 04/14/21 15:56: PT 12.8, INR 1.0, APTT 37.2 H 04/14/21 15:56: Sodium 135 L, Potassium 4.7, Chloride 106, Carbon Dioxide 21.0, Anion Gap 8, BUN 44 H, Creatinine 1.98 H, Estim Creat Clear Calc 41.37, Est GFR (MDRD) Af Amer 44 L, Est GFR (MDRD) Non-Af 36 L, BUN/Creatinine Ratio 22.2 H, Glucose 184 H, Calcium 8.6, Troponin I High Sens 12.0 04/14/21 15:56: Lactic Acid 1.7 04/14/21 15:56: B-Natriuretic Peptide 5.9 04/14/21 15:56: Magnesium 2.3 04/14/21 15:56: Total Bilirubin 0.60, Direct Bilirubin 0.20, AST 41 H, ALT 27, Alkaline Phosphatase 52, C-React Prot Ext Range 218.00 H, Total Protein 7.9, Albumin 3.0 L, Globulin 4.9 H 04/14/21 18:05: COVID-19 (HUONG) Positive 04/14/21 21:53: POC Glucose 217 H 04/15/21 04:45: WBC 2.8 L, RBC 4.93, Hgb 14.3, Hct 44.1, MCV 89.5, MCH 29.0, MCHC 32.4, RDW Std Deviation 46.1 H, RDW Coeff of Amaya 14.0, Plt Count 183, MPV 9.5, Immature Gran % (Auto) 4.300 H, Neut % (Auto) 70.6 H, Lymph % (Auto) 17.2 L , [place] % (Auto) 7.2, Eos % (Auto) 0.0, Baso % (Auto) 0.7, Absolute Neuts (auto) 2.0, Absolute Lymphs (auto) 0.48 L, Nucleated RBC % 0, Diff Path Review May foll 04/15/21 04:45: Sodium 136, Potassium 4.7, Chloride 106, Carbon Dioxide 19.0 L, Anion Gap 11, BUN 39 H, Creatinine 1.57 H, Estim Creat Clear Calc 52.17, Est GFR (MDRD) Af Amer 57 L, Est GFR (MDRD) Non-Af 47 L, BUN/Creatinine Ratio 24.8 H, Glucose 312 H, Calcium 8.5, Ferritin 1601 H, Total Bilirubin 0.60, AST 35, ALT 27, Alkaline Phosphatase 54, C-React Prot Ext Range 220.00 H, Total Protein 7.7, Albumin 2.8 L, Globulin 4.9 H, Albumin/Globulin Ratio 0.6 L 04/15/21 04:45: D-Dimer Quant (PE/DVT) 1.30 H* Micro: Microbiology 04/14/21 18:05 Mucosa - Nasopharyngeal Respiratory Panel (PCR) - Final 04/14/21 15:56 Mucosa - Nose SARS-CoV-2 Antigen (Rapid) - Final ABG Data ABG results: ABG 04/14/21 21:00 Specimen Type ART Sample Site L Radial pH 7.39 Bicarbonate Actual 17.5 L Total CO2 18 Base Excess -7 L O2 Saturation 96 O2 % 92 ABG pCO2 29.0 L ABG pO2 80 Kwaku Test Positive O2 Delivery Device HFOV Radiology Impression Chest CTA 04/14/21 15:52 IMPRESSION: 1. Technically limited study. 2. No large/central pulmonary embolism. 3. Refer to ultrasonography of the lower extremity venous system for further evaluation. 4. Severe bilateral viral pneumonia. 5. Severe coronary artery disease. 6. Incidental left SVC congenital variant. Electronically Signed: Rambo Chahal MD at 17:31 EDT Tel , Service support , Charges/Coding Procedures Hospitalists Procedures: [id number] Critial Care 1st Hr
[2021-04-15] MEDS: CHLORHEXIDINE GLUC 2% CLOTH 1 EACH TOWELETTE TOPICAL (11:21)
[2021-04-15 11:36] LABS: Bedside Glucose 261 mg/dL (70-110)
--- NOTE | 2021-04-15 13:50 | PN.HOSP_ITS ---
Subjective Subjective Feeling well on BiPAP. Started getting short of breath on 04/12, but felt ill roughly 2 days prior, the . Objective Data Objective Data Vital Signs: Vital Signs Temp Pulse Resp BP Pulse Ox 36.7 C 77 26 H 126/70 H 93 04/15/21 09:00 04/15/21 13:05 04/15/21 13:05 04/15/21 13:00 04/15/21 13:05 Oxygen Flow Rate (L/min) 60 Oxygen Delivery Method Bi-pap Weight: 134.5 kg Body Mass Index (BMI) 40.1 Intake & Output: Intake and Output for Last 24 Hours 04/13/21 04/14/21 04/15/21 23:59 23:59 23:59 Intake Total 2600 / 2600 Output Total 1100 / 1100 Balance 1500 / 1500 Lab / Micro Data Result Diagrams: 04/15/21 04:45 04/15/21 04:45 Labs: Laboratory Results - last 24 hr 04/14/21 15:56: WBC 5.4, RBC 5.10, Hgb 14.8, Hct 44.9, MCV 88.0, MCH 29.0, MCHC 33.0, RDW Std Deviation 44.9 H, RDW Coeff of Amaya 13.9, Plt Count 197, MPV 9.4, Immature Gran % (Auto) 2.100 H, Neut % (Auto) 77.5 H, Lymph % (Auto) 12.5 L, [place] % (Auto) 7.5, Eos % (Auto) 0.2, Baso % (Auto) 0.2, Absolute Neuts (auto) 4.2, Absolute Lymphs (auto) 0.67 L, Nucleated RBC % 0 04/14/21 15:56: PT 12.8, INR 1.0, APTT 37.2 H 04/14/21 15:56: Sodium 135 L, Potassium 4.7, Chloride 106, Carbon Dioxide 21.0, Anion Gap 8, BUN 44 H, Creatinine 1.98 H, Estim Creat Clear Calc 41.37, Est GFR (MDRD) Af Amer 44 L, Est GFR (MDRD) Non-Af 36 L, BUN/Creatinine Ratio 22.2 H, Glucose 184 H, Calcium 8.6, Troponin I High Sens 12.0 04/14/21 15:56: Lactic Acid 1.7 04/14/21 15:56: B-Natriuretic Peptide 5.9 04/14/21 15:56: Magnesium 2.3 04/14/21 15:56: Total Bilirubin 0.60, Direct Bilirubin 0.20, AST 41 H, ALT 27, Alkaline Phosphatase 52, C-React Prot Ext Range 218.00 H, Total Protein 7.9, Albumin 3.0 L, Globulin 4.9 H 04/14/21 18:05: COVID-19 (HUONG) Positive 04/14/21 21:53: POC Glucose 217 H 04/15/21 04:45: WBC 2.8 L, RBC 4.93, Hgb 14.3, Hct 44.1, MCV 89.5, MCH 29.0, MCHC 32.4, RDW Std Deviation 46.1 H, RDW Coeff of Amaya 14.0, Plt Count 183, MPV 9.5, Immature Gran % (Auto) 4.300 H, Neut % (Auto) 70.6 H, Lymph % (Auto) 17.2 L , [place] % (Auto) 7.2, Eos % (Auto) 0.0, Baso % (Auto) 0.7, Absolute Neuts (auto) 2.0, Absolute Lymphs (auto) 0.48 L, Nucleated RBC % 0, Diff Path Review December04/15/21 04:45: Sodium 136, Potassium 4.7, Chloride 106, Carbon Dioxide 19.0 L, Anion Gap 11, BUN 39 H, Creatinine 1.57 H, Estim Creat Clear Calc 52.17, Est GFR (MDRD) Af Amer 57 L, Est GFR (MDRD) Non-Af 47 L, BUN/Creatinine Ratio 24.8 H, Glucose 312 H, Calcium 8.5, Ferritin 1601 H, Total Bilirubin 0.60, AST 35, ALT 27, Alkaline Phosphatase 54, C-React Prot Ext Range 220.00 H, Total Protein 7.7, Albumin 2.8 L, Globulin 4.9 H, Albumin/Globulin Ratio 0.6 L 04/15/21 04:45: D-Dimer Quant (PE/DVT) 1.30 H* 04/15/21 11:19: POC Glucose 261 H 04/15/21 12:40: Procalcitonin 0.20 H Micro: Microbiology 04/14/21 18:05 Mucosa - Nasopharyngeal Respiratory Panel (PCR) - Final 04/14/21 15:56 Mucosa - Nose SARS-CoV-2 Antigen (Rapid) - Final ABG Data ABG results: ABG 04/14/21 21:00 Specimen Type ART Sample Site L Radial pH 7.39 Bicarbonate Actual 17.5 L Total CO2 18 Base Excess -7 L O2 Saturation 96 O2 % 92 ABG pCO2 29.0 L ABG pO2 80 Kwaku Test Positive O2 Delivery Device HFOV Radiography Diagnostic Testing: Radiology Impression Chest CTA 04/14/21 15:52 IMPRESSION: 1. Technically limited study. 2. No large/central pulmonary embolism. 3. Refer to ultrasonography of the lower extremity venous system for further evaluation. 4. Severe bilateral viral pneumonia. 5. Severe coronary artery disease. 6. Incidental left SVC congenital variant. Electronically Signed: Rambo Chahal MD at 17:31 EDT Tel , Service support , Physical Exam Const alert Constitutional Narrative: on BiPAP. no respiratory distress. HEENT Head and Scalp: normocephalic Resp normal respiratory effort and no retractions Resp Narrative: coarse breath sounds bilaterally. Cardio regular rate, regular rhythm, S1 normal heart sound and S2 normal heart sound Assessment & Plan Assessment/Plan (1) Pneumonia due to COVID-19 virus: (2) Acute respiratory failure with hypoxia: PLAN: 1. Acute COVID-19 pneumonia Patient indicates to me that time onset was the 11th but has indicated others that time onset was 7 to 10 days ago. The latter was seen to make most sense with his timing of worsening. Continue with dexamethasone and remdesivir Infectious disease on consultation 2. Acute hypoxic respiratory failure Secondary to acute COVID-[address] reviewed and showed bilateral diffuse infiltrates Thus far, tolerating BiPAP Inform patient that any improvements will be slow but informed the patient that I am concerned that he could decline quickly. It is unclear to me which direction he is heading in at this time. Patient is open to intubation if necessary 3. CKD 3B BREE ruled out Monitor Avoid nephrotoxic agents 4. CAD Stable at this time Continue with aspirin, atorvastatin and ticagrelor 5. VTE prophylaxis with subcu heparin Charges/Coding Visit Charges Inpatient E&M: 99397 Subs Hosp L2
--- NOTE | 2021-04-15 14:00 | CASEMGMT ---
Patient is currently on continuous Bipap. RN CM attempted to call to complete assessment. Voice message left with return contact information. WIll attempt again at later time.
--- NOTE | 2021-04-15 15:00 | PCM.CONS.GEN ---
Assessment & Plan Assessment/Plan (1) Acute respiratory failure with hypoxia: (2) Pneumonia due to COVID-19 virus: PLAN: Sx started around 04/07/21, unvaccinated. On dex and remdesivir. CT neg for PE. Tocilizumab unavailable. is sick and is getting tested, in quarantine. Once they are out of quarantine, recommend vaccination. Will follow, thank you HPI Consult Data Date of Consult: 04/15/21 HPI Narrative HPI Narrative: MEGAN CLEARY, is a 65 M who presented 04/14 with one week of sore throat, headache, fever, chills. Had progressive dry cough and dyspnea. Unvaccinated. also sick, test pending. He came to ED, covid (+), admitted on dex and remdesivir. Feeling a little better. Full ROS performed and neg except as noted above. [facility] Medical History CAD (coronary artery disease) Diabetes mellitus, type 2 High cholesterol HTN (hypertension) Morbid obesity Home Medications aspirin 81 mg PO DAILY 04/14/21 [History Last Taken Unknown] atorvastatin 80 mg PO DAILY 04/14/21 [History Last Taken Unknown] fenofibrate 160 mg PO DAILY 04/14/21 [History Last Taken Unknown] hydrochlorothiazide 12.5 mg PO DAILY 04/14/21 [History Last Taken Unknown] metformin 1,000 mg PO BID 04/14/21 [History Last Taken Unknown] metoprolol succinate 50 mg PO DAILY 04/14/21 [History Last Taken Unknown] ramipril 10 mg PO DAILY 04/14/21 [History Last Taken Unknown] spironolactone 25 mg PO DAILY 04/14/21 [History Last Taken Unknown] ticagrelor [Brilinta] 90 mg PO BID 04/14/21 [History Last Taken Unknown] Allergy/AdvReac Type Severity Reaction Status Date / Time No Known Allergies Allergy Verified 04/14/21 15:38 Surgical History Stented coronary artery Social History Smoking Status: Never smoker Physical Exam Const alert and oriented x3 General Appearance: cooperative HEENT normocephalic and head/scalp atraumatic Eyes PERRL and EOMs intact bilaterally Neck supple and No nodes Resp Auscultation: diminished lung sounds Cardio regular rate and regular rhythm GI normal to inspection, nondistended, normoactive bowel sounds Extremity no clubbing, cyanosis or edema Skin no rashes or lesions noted Neuro CN's II-XII intact bilaterally Lab / Micro Data Result Diagrams: 04/15/21 04:45 04/15/21 04:45 Labs: Laboratory Results - last 24 hr 04/14/21 15:56: WBC 5.4, RBC 5.10, Hgb 14.8, Hct 44.9, MCV 88.0, MCH 29.0, MCHC 33.0, RDW Std Deviation 44.9 H, RDW Coeff of Amaya 13.9, Plt Count 197, MPV 9.4, Immature Gran % (Auto) 2.100 H, Neut % (Auto) 77.5 H, Lymph % (Auto) 12.5 L, [place] % (Auto) 7.5, Eos % (Auto) 0.2, Baso % (Auto) 0.2, Absolute Neuts (auto) 4.2, Absolute Lymphs (auto) 0.67 L, Nucleated RBC % 0 04/14/21 15:56: PT 12.8, INR 1.0, APTT 37.2 H 04/14/21 15:56: Sodium 135 L, Potassium 4.7, Chloride 106, Carbon Dioxide 21.0, Anion Gap 8, BUN 44 H, Creatinine 1.98 H, Estim Creat Clear Calc 41.37, Est GFR (MDRD) Af Amer 44 L, Est GFR (MDRD) Non-Af 36 L, BUN/Creatinine Ratio 22.2 H, Glucose 184 H, Calcium 8.6, Troponin I High Sens 12.0 04/14/21 15:56: Lactic Acid 1.7 04/14/21 15:56: B-Natriuretic Peptide 5.9 04/14/21 15:56: Magnesium 2.3 04/14/21 15:56: Total Bilirubin 0.60, Direct Bilirubin 0.20, AST 41 H, ALT 27, Alkaline Phosphatase 52, C-React Prot Ext Range 218.00 H, Total Protein 7.9, Albumin 3.0 L, Globulin 4.9 H 04/14/21 18:05: COVID-19 (HUONG) Positive 04/14/21 21:53: POC Glucose 217 H 04/15/21 04:45: WBC 2.8 L, RBC 4.93, Hgb 14.3, Hct 44.1, MCV 89.5, MCH 29.0, MCHC 32.4, RDW Std Deviation 46.1 H, RDW Coeff of Amaya 14.0, Plt Count 183, MPV 9.5, Immature Gran % (Auto) 4.300 H, Neut % (Auto) 70.6 H, Lymph % (Auto) 17.2 L, [place] % (Auto) 7.2, Eos % (Auto) 0.0, Baso % (Auto) 0.7, Absolute Neuts (auto) 2.0, Absolute Lymphs (auto) 0.48 L, Nucleated RBC % 0, Diff Path Review December04/15/21 04:45: Sodium 136, Potassium 4.7, Chloride 106, Carbon Dioxide 19.0 L, Anion Gap 11, BUN 39 H, Creatinine 1.57 H, Estim Creat Clear Calc 52.17, Est GFR (MDRD) Af Amer 57 L, Est GFR (MDRD) Non-Af 47 L, BUN/Creatinine Ratio 24.8 H, Glucose 312 H, Calcium 8.5, Ferritin 1601 H, Total Bilirubin 0.60, AST 35, ALT 27, Alkaline Phosphatase 54, C-React Prot Ext Range 220.00 H, Total Protein 7.7, Albumin 2.8 L, Globulin 4.9 H, Albumin/Globulin Ratio 0.6 L 04/15/21 04:45: D-Dimer Quant (PE/DVT) 1.30 H* 04/15/21 11:19: POC Glucose 261 H 04/15/21 12:40: Procalcitonin 0.20 H Micro: Microbiology 04/14/21 18:05 Mucosa - Nasopharyngeal Respiratory Panel (PCR) - Final 04/14/21 15:56 Mucosa - Nose SARS-CoV-2 Antigen (Rapid) - Final ABG Data ABG results: ABG 04/14/21 21:00 Specimen Type ART Sample Site L Radial pH 7.39 Bicarbonate Actual 17.5 L Total CO2 18 Base Excess -7 L O2 Saturation 96 O2 % 92 ABG pCO2 29.0 L ABG pO2 80 Kwaku Test Positive O2 Delivery Device HFOV Radiology Impression Chest CTA 04/14/21 15:52 IMPRESSION: 1. Technically limited study. 2. No large/central pulmonary embolism. 3. Refer to ultrasonography of the lower extremity venous system for further evaluation. 4. Severe bilateral viral pneumonia. 5. Severe coronary artery disease. 6. Incidental left SVC congenital variant. Electronically Signed: Rambo Chahal MD at 17:31 EDT Tel , Service support ,
[2021-04-15 15:50] LABS: Pathologist Review Reviewed
[2021-04-15 16:16] LABS: Bedside Glucose 318 mg/dL (70-110)
[2021-04-15] MEDS: Atorvastatin Calcium 80 MG Tablet PO (21:25)
[2021-04-15 21:46] LABS: Bedside Glucose 279 mg/dL (70-110)
[2021-04-16] VITALS (31 sets, daily range): BP systolic 108–165; BP diastolic 55–118; PULSE 58–87; RESP 12–26; TEMP 35.6–36.8; O2SAT 40–97
[2021-04-16] MEDS: Heparin Injection (Vial) 5,000 UNIT/ML VIAL 5000 UNIT SC ×3 (05:20→21:01)
[2021-04-16 05:35] LABS: Absolute Lymphocyte Count 0.91 X10^3/uL (0.83-4.51); Absolute Neutrophil Count 7.4 X10^3/uL (2.0-7.7); Basophil# 0.05 X10^3/uL; Basophil% 0.5 % (0-1); Hematocrit 43.9 % (40-54); Hemoglobin 14.2 g/dL (13.0-16.5); Lymphocyte # 0.91 X10^3/ul (0.83-4.51); Lymphocyte % 9.9 % (19-41); Mean Corp Hgb Conc 32.3 g/dL (32-36); Mean Corpuscular Hgb 28.3 pg (27.0-32.0); Mean Corpuscular Volume 87.6 fL (80-94); Mean Platelet Vol. 9.5 fl (6.2-12.0); Monocyte# 0.51 X10^3/uL; Monocyte% 5.6 % (0-10); NRBC Flagged by Analyzer 0 % (0-5); Neutrophil # 7.41 X10^3/uL (2.7-7.7); Neutrophil % 80.8 % (47-70); Platelet Count 290 K/mm3 (150-450); RBC Distribution Width CV 13.9 % (11.6-14.6); RBC Distribution Width SD 44.9 fl (35.1-43.9); Red Blood Count 5.01 M/mm3 (4.6-6.2); White Blood Count 9.2 K/mm3 (4.4-11.0)
[2021-04-16 05:53] LABS: ALB/GLOB Ratio 0.6 RATIO (0.9-2.4); AST(SGOT) 32 U/L (15-37); Alanine Aminotransfer ALT/SGPT 29 U/L (16-61); Albumin, Serum 2.9 g/dL (3.2-5.0); Alkaline Phosphatase 51 U/L (45-117); Anion Gap 9 (5-15); BUN 46 mg/dL (7-18); BUN/Creat Ratio 33.3 RATIO (10-20); Chloride 109 mmol/L (98-107); Creatinine, Serum 1.38 mg/dL (0.70-1.30); EST Glomerular Filtration Rate 55 mL/min (>60); Est Glom Filt Rate - Afr Amer 67 mL/min (>60); Estimated Creatinine Clearance 59.36 ml/min; Globulin 4.8 g/dL (2.2-4.2); Glucose 213 mg/dL (74-106); Potassium 4.7 mmol/L (3.5-5.1); Protein, Total 7.7 g/dL (6.4-8.2); Sodium Level 139 mmol/L (136-145)
--- NOTE | 2021-04-16 07:59 | PCM.PN.INT ---
Assessment & Plan Assessment/Plan (1) Pneumonia due to COVID-19 virus: (2) Acute respiratory failure with hypoxia: (3) Stage 3b chronic kidney disease: PLAN: RECOMMENDATIONS: 1. Attempt transition to Airvo to facilitate p.o. intake 2. Continue Decadron and Remdesivir 3. Continue telemetry and cardiac medications 4. Hold EDGAR inhibitor given acute kidney injury 5. Continue to monitor blood sugars. May need to increase Lantus dosing 6. Continue to encourage ambulation as tolerated IMPRESSIONS: 1. Acute hypoxic respiratory failure secondary to COVID-19 pneumonia Patient has tested positive for COVID-19 and does not have any immunization. Patient was given Decadron in the ER. Patient is open to intubation if necessary. Improvement following BiPAP therapy would be suggestive of derecruitment. Continue to increase activity as tolerated. Anticipate continuing BiPAP with sleep as patient likely has an element of undiagnosed JOSÉ ANTONIO. Will need to follow blood sugars closely given Decadron therapy in the history of diabetes mellitus, but appears to be adequately controlled at this time. Patient is reporting 7 to 10 days of symptoms. Patient has been initiated on Remdesivir per infectious disease. Anticipate completing scheduled doses. 2. Acute on chronic kidney disease stage IIIb Patient with only a slight increase in creatinine compared to July. Will discontinue IV fluids as this can worsen problem #1. We will hold EDGAR inhibitor and spironolactone. No indication for renal replacement therapy at this time. Blood pressures well controlled at this time. 3. Diabetes mellitus type 2/morbid obesity/dyslipidemia/hypertension/coronary artery disease status post stents Complicates care, management, recovery and prognosis. If patient is to be continued on Remdesivir, could consider discontinuation of statin. Monitor blood sugars. Patient may require increase basal insulin. Continue telemetry to evaluate for arrhythmias given extensive coronary artery disease. TIME: 31 minutes critical care time spent addressing patient's acute hypoxic respiratory failure, hyperglycemia, acute kidney injury, hypertension, review of all data and collaboration with care team (7 AM to 8 AM) Subjective Subjective Patient did okay overnight. Patient has not tolerated transition to Airvo very well and desaturates quickly. Overnight, saturations have improved and patient has been able to be weaned on FiO2 with BiPAP. Patient did sleep in the chair out of comfort. Patient is denying any pain and feels subjectively slightly improved compared to yesterday. Objective Data Objective Data Vital Signs: Vital Signs Temp Pulse Resp BP Pulse Ox 36.7 C 62 24 H 128/75 H 94 04/16/21 06:00 04/16/21 07:28 04/16/21 07:28 04/16/21 07:00 04/16/21 07:28 Oxygen Flow Rate (L/min) 60 Oxygen Delivery Method Bi-pap Weight: 134.5 kg Body Mass Index (BMI) 40.1 Intake & Output: Intake and Output for Last 24 Hours 04/14/21 04/15/21 04/16/21 23:59 23:59 23:59 Intake Total 3330 / 3930 1000 / 1000 Output Total 1750 / 2450 1400 / 1400 Balance 1580 / 1480 -400 / -400 Lab / Micro Data Result Diagrams: 04/16/21 05:20 04/16/21 05:20 Labs: Laboratory Results - last 24 hr 04/15/21 04:45: Diff Path Review Reviewed 04/15/21 11:19: POC Glucose 261 H 04/15/21 12:40: Procalcitonin 0.20 H 04/15/21 16:09: POC Glucose 318 H 04/15/21 21:23: POC Glucose 279 H 04/16/21 05:20: WBC 9.2, RBC 5.01, Hgb 14.2, Hct 43.9, MCV 87.6, MCH 28.3, MCHC 32.3, RDW Std Deviation 44.9 H, RDW Coeff of Amaya 13.9, Plt Count 290, MPV 9.5, Immature Gran % (Auto) 3.200 H, Neut % (Auto) 80.8 H, Lymph % (Auto) 9.9 L, [place] % (Auto) 5.6, Eos % (Auto) 0.0, Baso % (Auto) 0.5, Absolute Neuts (auto) 7.4, Absolute Lymphs (auto) 0.91, Nucleated RBC % 0 04/16/21 05:20: Sodium 139, Potassium 4.7, Chloride 109 H, Carbon Dioxide 21.0, Anion Gap 9, BUN 46 H, Creatinine 1.38 H, Estim Creat Clear Calc 59.36, Est GFR (MDRD) Af Amer 67, Est GFR (MDRD) Non-Af 55 L, BUN/Creatinine Ratio 33.3 H, Glucose 213 H, Calcium 9.0, Total Bilirubin 0.50, AST 32, ALT 29, Alkaline Phosphatase 51, Total Protein 7.7, Albumin 2.9 L, Globulin 4.8 H, Albumin/Globulin Ratio 0.6 L Micro: Microbiology 04/14/21 18:05 Mucosa - Nasopharyngeal Respiratory Panel (PCR) - Final 04/14/21 15:56 Mucosa - Nose SARS-CoV-2 Antigen (Rapid) - Final Physical Exam Const alert, oriented x3 and no apparent distress Constitutional Narrative: Good BiPAP synchrony. Sitting in the chair. General Appearance: cooperative, well developed and on BiPAP Nutritional Appearance: morbidly obese HEENT normocephalic, head/scalp atraumatic and moist oral mucous membranes Eyes PERRL and EOMs intact bilaterally Neck full ROM and no lymphadenopathy Chest inspection of chest normal Resp normal respiratory effort and no use of accessory muscles Auscultation: diminished lung sounds; Negative for rales, rhonchi or wheezes Percussion: Negative for dullness Cardio regular rate, regular rhythm, S1 normal heart sound, S2 normal heart sound, no murmurs, no rub and no gallops GI normal to inspection, nondistended, normoactive bowel sounds no CVA tenderness Extremity no clubbing, cyanosis or edema Skin Skin Narrative: Venous stasis changes of bilateral lower extremities Neuro oriented x3, CN's II-XII intact bilaterally, moves all extremities and no focal motor deficits Psych cooperative and affect normal Charges/Coding Procedures Hospitalists Procedures: 80742 Critial Care 1st Hr
[2021-04-16] MEDS: Insulin Lispro 100 UNIT/ML INSULN.PEN SC ×4 (08:51→21:01)
[2021-04-16 09:22] LABS: Bedside Glucose 184 mg/dL (70-110)
[2021-04-16] MEDS: TICAGRELOR 90 MG TABLET PO ×2 (10:36→21:01)
[2021-04-16] MEDS: dexAMETHasone 4 MG Tablet 6 MG PO (10:37)
[2021-04-16] MEDS: Aspirin E.C. 81 MG Tablet PO (10:37)
[2021-04-16] MEDS: Metoprolol(XL)Succ 50 MG Tablet PO (10:37)
[2021-04-16] MEDS: hydroCHLOROthiazide 12.5mg 12.5 MG PO (10:37)
[2021-04-16] MEDS: CHLORHEXIDINE GLUC 2% CLOTH 1 EACH TOWELETTE TOPICAL (10:45)
[2021-04-16 12:46] LABS: Bedside Glucose 185 mg/dL (70-110)
--- NOTE | 2021-04-16 13:42 | PN.HOSP_ITS ---
Subjective Subjective Weaned down to Airvo from BiPAP and thus far he is tolerating. Objective Data Objective Data Vital Signs: Vital Signs Temp Pulse Resp BP Pulse Ox 36.1 C L 81 19 H 148/80 H 93 04/16/21 12:00 04/16/21 12:00 04/16/21 12:00 04/16/21 12:00 04/16/21 12:00 Oxygen Flow Rate (L/min) 60 Oxygen Delivery Method Airvo Weight: 134.5 kg Body Mass Index (BMI) 40.1 Intake & Output: Intake and Output for Last 24 Hours 04/14/21 04/15/21 04/16/21 23:59 23:59 23:59 Intake Total 3330 / 3930 1356 / 1356 Output Total 1750 / 2450 1400 / 1400 Balance 1580 / 1480 -44 / -44 Lab / Micro Data Result Diagrams: 04/16/21 05:20 04/16/21 05:20 Labs: Laboratory Results - last 24 hr 04/15/21 04:45: Diff Path Review Reviewed 04/15/21 16:09: POC Glucose 318 H 04/15/21 21:23: POC Glucose 279 H 04/16/21 05:20: WBC 9.2, RBC 5.01, Hgb 14.2, Hct 43.9, MCV 87.6, MCH 28.3, MCHC 32.3, RDW Std Deviation 44.9 H, RDW Coeff of Amaya 13.9, Plt Count 290, MPV 9.5, Immature Gran % (Auto) 3.200 H, Neut % (Auto) 80.8 H, Lymph % (Auto) 9.9 L, [place] % (Auto) 5.6, Eos % (Auto) 0.0, Baso % (Auto) 0.5, Absolute Neuts (auto) 7.4, Absolute Lymphs (auto) 0.91, Nucleated RBC % 0 04/16/21 05:20: Sodium 139, Potassium 4.7, Chloride 109 H, Carbon Dioxide 21.0, Anion Gap 9, BUN 46 H, Creatinine 1.38 H, Estim Creat Clear Calc 59.36, Est GFR (MDRD) Af Amer 67, Est GFR (MDRD) Non-Af 55 L, BUN/Creatinine Ratio 33.3 H, Glucose 213 H, Calcium 9.0, Total Bilirubin 0.50, AST 32, ALT 29, Alkaline Phosphatase 51, Total Protein 7.7, Albumin 2.9 L, Globulin 4.8 H, Albumin/Globulin Ratio 0.6 L 04/16/21 08:33: POC Glucose 184 H 04/16/21 12:33: POC Glucose 185 H Micro: Microbiology 04/14/21 18:05 Mucosa - Nasopharyngeal Respiratory Panel (PCR) - Final 04/14/21 15:56 Mucosa - Nose SARS-CoV-2 Antigen (Rapid) - Final Physical Exam Const alert Resp normal respiratory effort, no retractions, no use of accessory muscles and clear to auscultation bilaterally Cardio regular rate, regular rhythm, S1 normal heart sound and S2 normal heart sound GI normal to inspection, nondistended, normoactive bowel sounds, soft to palpation, non-tender and non-distended Extremity normal to inspection Assessment & Plan Assessment/Plan (1) Pneumonia due to COVID-19 virus: (2) Acute respiratory failure with hypoxia: PLAN: 1. Acute COVID-19 pneumonia Patient indicates to me that time onset was the 11th but has indicated others that time onset was 7 to 10 days ago. The latter was seen to make most sense with his timing of worsening. Continue with dexamethasone and remdesivir Infectious disease on consultation 2. Acute hypoxic respiratory failure Improving Secondary to acute COVID-[address] reviewed and showed bilateral diffuse infiltrates Thus far, tolerating BiPAP Inform patient that any improvements will be slow but informed the patient that I am concerned that he could decline quickly. It is unclear to me which direction he is heading in at this time. Patient is open to intubation if necessary 3. CKD 3B BREE ruled out Monitor Avoid nephrotoxic agents 4. CAD Stable at this time Continue with aspirin, atorvastatin and ticagrelor 5. VTE prophylaxis with subcu heparin Charges/Coding Visit Charges Inpatient E&M: 11722 Subs Hosp L2
--- NOTE | 2021-04-16 14:43 | CASEMGMT ---
ROME DRUMMOND Face to Face with patient for initial transition planning/care coordination assessment. RN CM introduced self and role at [facility]. Patient sitting in chair, alert and oriented. Patient willing to participate in assessment and is able to answer all questions appropriately. Care providers, pharmacy, and demographics verified. Patient wishes to discharge home, will monitor for need for home oxygen and HHC pending progress. Patient states he has no further needs or concerns at this time. CM to follow for discharge planning needs that may arise. PCP: Chris Specialists: [employer] [facility] Pref[facility] Pharm[facility]: [facility] Insurance: [place] Prescription Benefit: yes Living Will/HPOA: yes, Laura Harding LNOK: , son Living Arrangements: Patient lives with in a 3 story home with bed and bath access on first floor. Patient is normally independent and able to ambulate stairs. Transportation: self//son DME/HHC: patient states he has shower chair, cane, walker, raised toilet, and grab bars at home. Patient denies previous HHC or SNF. No preferences for DME, list provided to patient and would like [facility] for DME. Disposition Plan: Patient to discharge home with family support and follow-up plans in place. Will monitor for HHC and home oxygen. Tasia YEH, RN, CM
[2021-04-16] MEDS: Ibuprofen 600 MG Tablet PO (15:36)
[2021-04-16 17:16] LABS: Bedside Glucose 280 mg/dL (70-110)
[2021-04-16] MEDS: Atorvastatin Calcium 80 MG Tablet PO (21:01)
[2021-04-16 21:16] LABS: Bedside Glucose 261 mg/dL (70-110)
[2021-04-17] VITALS (36 sets, daily range): BP systolic 99–153; BP diastolic 56–98; PULSE 63–89; RESP 12–28; TEMP 36.2–36.4; O2SAT 86–97
[2021-04-17] MEDS: MELATONIN 10 MG TABLET PO ×2 (00:50→21:46)
[2021-04-17] MEDS: Ondansetron 4 MG/2 ML Vial IV (03:00)
[2021-04-17] MEDS: Ibuprofen 600 MG Tablet PO ×3 (03:20→19:53)
[2021-04-17 03:33] LABS: Hematocrit 45.3 % (40-54); Hemoglobin 14.9 g/dL (13.0-16.5); Mean Corp Hgb Conc 32.9 g/dL (32-36); Mean Corpuscular Hgb 28.7 pg (27.0-32.0); Mean Corpuscular Volume 87.1 fL (80-94); Platelet Count 319 K/mm3 (150-450); RBC Distribution Width CV 13.7 % (11.6-14.6); RBC Distribution Width SD 43.9 fl (35.1-43.9); White Blood Count 11.2 K/mm3 (4.4-11.0)
[2021-04-17 03:52] LABS: ALB/GLOB Ratio 0.7 RATIO (0.9-2.4); AST(SGOT) 31 U/L (15-37); Alanine Aminotransfer ALT/SGPT 28 U/L (16-61); Albumin, Serum 3.2 g/dL (3.2-5.0); Alkaline Phosphatase 59 U/L (45-117); Anion Gap 10 (5-15); BUN 43 mg/dL (7-18); BUN/Creat Ratio 31.9 RATIO (10-20); Calcium,Total 9.2 mg/dL (8.5-10.1); Chloride 106 mmol/L (98-107); Creatinine, Serum 1.35 mg/dL (0.70-1.30); EST Glomerular Filtration Rate 57 mL/min (>60); Est Glom Filt Rate - Afr Amer 68 mL/min (>60); Estimated Creatinine Clearance 60.67 ml/min; Globulin 4.9 g/dL (2.2-4.2); Glucose 180 mg/dL (74-106); Potassium 4.5 mmol/L (3.5-5.1); Protein, Total 8.1 g/dL (6.4-8.2); Sodium Level 138 mmol/L (136-145)
[2021-04-17] MEDS: Heparin Injection (Vial) 5,000 UNIT/ML VIAL 5000 UNIT SC ×3 (06:38→21:46)
--- NOTE | 2021-04-17 07:58 | PN.CC_ITS ---
Assessment & Plan Assessment/Plan (1) Pneumonia due to COVID-19 virus: (2) Acute respiratory failure with hypoxia: (3) Stage 3b chronic kidney disease: PLAN: RECOMMENDATIONS: 1. Attempt transition to Airvo to facilitate p.o. intake 2. Continue Decadron and Remdesivir 3. Continue telemetry and cardiac medications 4. Hold EDGAR inhibitor given acute kidney injury 5. Continue to monitor blood sugars. Tolerating current Lantus dosing 6. Continue to encourage ambulation as tolerated 7. Delirium protocol. Add Seroquel as needed IMPRESSIONS: 1. Acute hypoxic respiratory failure secondary to COVID-19 pneumonia Patient has tested positive for COVID-19 and does not have any immunization. Patient was given Decadron in the ER. Patient is open to intubation if necessary. Improvement following BiPAP therapy would be mata ggestive of derecruitment. Continue to increase activity as tolerated. Anticipate continuing BiPAP with sleep as patient likely has an element of undiagnosed JOSÉ ANTONIO. Will need to follow blood sugars closely given Decadron therapy in the history of diabetes mellitus, but appears to be adequately cont rolled at this time. Patient is reporting 7 to 10 days of symptoms. Patient has been initiated on Remdesivir per infectious disease. Anticipate completing scheduled doses. Some concern that anxiety may limit patient's ability to tolerate supplemental oxygen. Continue delirium protocol. Seroquel to help at bedtime. 2. Acute on chronic kidney disease stage IIIb Patient with only a slight increase in creatinine compared to July. Will discontinue IV fluids as this can worsen problem #1. We will hold EDGAR inhibitor and spironolactone. No indication for renal replacement therapy at this time. Blood pressures well controlled at this time. Possibly challenge with diuretics tomorrow. 3. Diabetes mellitus type 2/morbid obesity/dyslipidemi a/hypertension/coronary artery disease status post stents Complicates care, management, recovery and prognosis. If patient is to be continued on Remdesivir, could consider discontinuation of statin. Monitor blood sugars. Patient may require increase basal insulin. Continue telemetry to evaluate for arrhythmias given extensive coronary artery disease. Subjective Subjective Patient with some difficulties overnight. Patient reports that he became very anxious and was unable to tolerate BiPAP for some the evening. Patient was given melatonin and did tolerate BiPAP for short period of time. Patient states his anxiety is starting to interfere with his ability to comply with some therapies. Patient subjectively feels slightly improved compared to yesterday. Objective Data Objective Data Vital Signs: Vital Signs Temp Pulse Resp BP Pulse Ox 36.3 C L 71 14 112/56 L 92 04/17/21 04:00 04/17/21 07:27 04/17/21 07:27 04/17/21 07:00 04/17/21 07:27 Oxygen Flow Rate (L/min) 50 Oxygen Delivery Method Airvo Weight: 133.5 kg Body Mass Index (BMI) 40.1 Intake & Output: Intake and Output for Last 24 Hours 04/15/21 04/16/21 04/17/21 23:59 23:59 23:59 Intake Total 3330 / 3930 2406 / 2406 400 / 400 Output Total 1750 / 2450 3100 / 3100 350 / 350 Balance 1580 / 1480 -694 / -694 50 / 50 Lab / Micro Data Result Diagrams: 04/17/21 03:15 04/17/21 03:15 Labs: Laboratory Results - last 24 hr 04/16/21 08:33: POC Glucose 184 H 04/16/21 12:33: POC Glucose 185 H 04/16/21 17:07: POC Glucose 280 H 04/16/21 20:59: POC Glucose 261 H 04/17/21 03:15: WBC 11.2 H, RBC 5.20, Hgb 14.9, Hct 45.3, MCV 87.1, MCH 28.7, MCHC 32.9, RDW Std Deviation 43.9, RDW Coeff of Amaya 13.7, Plt Count 319, MPV 9.0 04/17/21 03:15: Sodium 138, Potassium 4.5, Chloride 106, Carbon Dioxide 22.0, Anion Gap 10, BUN 43 H, Creatinine 1.35 H, Estim Creat Clear Calc 60.67, Est GFR (MDRD) Af Amer 68, Est GFR (MDRD) Non-Af 57 L, BUN/Creatinine Ratio 31.9 H, Glucose 180 H, Calcium 9.2, Total Bilirubin 0.70, AST 31, ALT 28, Alkaline Phosphatase 59, Total Protein 8.1, Albumin 3.2, Globulin 4.9 H, Albumin/Globulin Ratio 0.7 L Micro: Microbiology 04/14/21 17:10 Blood Culture (Wb) - Arm Left Blood Culture - Preliminary No growth in 48 hours. 04/14/21 15:56 Blood Culture (Wb) - Anticubital Left Blood Culture - Preliminary No growth in 48 hours. 04/14/21 18:05 Mucosa - Nasopharyngeal Respiratory Panel (PCR) - Final 04/14/21 15:56 Mucosa - Nose SARS-CoV-2 Antigen (Rapid) - Final Physical Exam Const alert, oriented x3 and no apparent distress Constitutional Narrative: On Airvo. Sitting in the chair. General Appearance: cooperative, well developed and anxious; Negative for on BiPAP Nutritional Appearance: morbidly obese HEENT normocephalic, head/scalp atraumatic and moist oral mucous membranes Eyes PERRL and EOMs intact bilaterally Neck full ROM and no lymphadenopathy Chest inspection of chest normal Resp normal respiratory effort and no use of accessory muscles Auscultation: diminished lung sounds; Negative for rales, rhonchi or wheezes Percussion: Negative for dullness Cardio regular rate, regular rhythm, S1 normal heart sound, S2 normal heart sound, no murmurs, no rub and no gallops GI normal to inspection, nondistended, normoactive bowel sounds no CVA tenderness Extremity no clubbing, cyanosis or edema Skin Skin Narrative: Venous stasis changes of bilateral lower extremities Neuro oriented x3, CN's II-XII intact bilaterally, moves all extremities and no focal motor deficits Psych cooperative and affect normal Charges/Coding Visit Charges Inpatient E&M: 36475 Subs Hosp L3
[2021-04-17] MEDS: dexAMETHasone 4 MG Tablet 6 MG PO (08:12)
[2021-04-17] MEDS: Aspirin E.C. 81 MG Tablet PO (08:15)
[2021-04-17] MEDS: hydroCHLOROthiazide 12.5mg 12.5 MG PO (08:15)
[2021-04-17] MEDS: Metoprolol(XL)Succ 50 MG Tablet PO (08:15)
[2021-04-17] MEDS: TICAGRELOR 90 MG TABLET PO ×2 (08:15→21:46)
[2021-04-17] MEDS: Insulin Lispro 100 UNIT/ML INSULN.PEN SC ×4 (08:16→21:50)
[2021-04-17 10:11] LABS: Bedside Glucose 188 mg/dL (70-110)
--- NOTE | 2021-04-17 11:03 | PCS.PANDOC ---
PANDEMIC DOCUMENTATION INITIATED: Date: 04/15/2021 Time: 190
[2021-04-17] MEDS: CHLORHEXIDINE GLUC 2% CLOTH 1 EACH TOWELETTE TOPICAL (12:12)
--- NOTE | 2021-04-17 13:56 | PCM.PN.HOSP ---
Subjective Subjective Tolerating air Vo currently. Did not tolerate BiPAP last night. Feels fine overall. Objective Data Objective Data Vital Signs: Vital Signs Temp Pulse Resp BP Pulse Ox 36.4 C L 89 16 136/80 H 90 04/17/21 12:00 04/17/21 13:00 04/17/21 13:00 04/17/21 13:00 04/17/21 13:00 Oxygen Flow Rate (L/min) 50 Oxygen Delivery Method Airvo Weight: 133.5 kg Body Mass Index (BMI) 40.1 Intake & Output: Intake and Output for Last 24 Hours 04/15/21 04/16/21 04/17/21 23:59 23:59 23:59 Intake Total 3330 / 3930 2406 / 2406 1160 / 1160 Output Total 1750 / 2450 3100 / 3100 1000 / 1000 Balance 1580 / 1480 -694 / -694 160 / 160 Lab / Micro Data Result Diagrams: 04/17/21 03:15 04/17/21 03:15 Labs: Laboratory Results - last 24 hr 04/16/21 17:07: POC Glucose 280 H 04/16/21 20:59: POC Glucose 261 H 04/17/21 03:15: WBC 11.2 H, RBC 5.20, Hgb 14.9, Hct 45.3, MCV 87.1, MCH 28.7, MCHC 32.9, RDW Std Deviation 43.9, RDW Coeff of Amaya 13.7, Plt Count 319, MPV 9.0 04/17/21 03:15: Sodium 138, Potassium 4.5, Chloride 106, Carbon Dioxide 22.0, Anion Gap 10, BUN 43 H, Creatinine 1.35 H, Estim Creat Clear Calc 60.67, Est GFR (MDRD) Af Amer 68, Est GFR (MDRD) Non-Af 57 L, BUN/Creatinine Ratio 31.9 H, Glucose 180 H, Calcium 9.2, Total Bilirubin 0.70, AST 31, ALT 28, Alkaline Phosphatase 59, Total Protein 8.1, Albumin 3.2, Globulin 4.9 H, Albumin/Globulin Ratio 0.7 L 04/17/21 08:08: POC Glucose 188 H Micro: Microbiology 04/14/21 17:10 Blood Culture (Wb) - Arm Left Blood Culture - Preliminary No growth in 48 hours. 04/14/21 15:56 Blood Culture (Wb) - Anticubital Left Blood Culture - Preliminary No growth in 48 hours. 04/14/21 18:05 Mucosa - Nasopharyngeal Respiratory Panel (PCR) - Final 04/14/21 15:56 Mucosa - Nose SARS-CoV-2 Antigen (Rapid) - Final Physical Exam Const alert and no apparent distress Constitutional Narrative: Up in chair on air Vo. No respiratory distress. No conversational dyspnea. Neck no lymphadenopathy and no JVD Resp normal respiratory effort Resp Narrative: Coarse breath sounds bilateral Cardio regular rate, regular rhythm, S1 normal heart sound and S2 normal heart sound GI normal to inspection, nondistended, normoactive bowel sounds, soft to palpation, non-tender and non-distended Extremity normal to inspection Skin no rashes or lesions noted Assessment & Plan Assessment/Plan (1) Pneumonia due to COVID-19 virus: (2) Acute respiratory failure with hypoxia: PLAN: 1. Acute COVID-19 pneumonia Patient indicates to me that time onset was the 11th but has indicated others that time onset was 7 to 10 days ago. The latter was seen to make most sense with his timing of worsening. Continue with dexamethasone and remdesivir Infectious disease on consultation 2. Acute hypoxic respiratory failure Improving Secondary to acute COVID-[address] reviewed and showed bilateral diffuse infiltrates Thus far, tolerating BiPAP Inform patient that any improvements will be slow but informed the patient that I am concerned that he could decline quickly. It is unclear to me which direction he is heading in at this time. Patient is open to intubation if necessary 3. CKD 3B BREE ruled out Monitor Avoid nephrotoxic agents 4. CAD Stable at this time Continue with aspirin, atorvastatin and ticagrelor 5. VTE prophylaxis with subcu heparin Charges/Coding Visit Charges Inpatient E&M: 30459 Subs Hosp L2
[2021-04-17 17:05] LABS: Bedside Glucose 326 mg/dL (70-110)
[2021-04-17 17:21] LABS: Bedside Glucose 244 mg/dL (70-110)
[2021-04-17] MEDS: Atorvastatin Calcium 80 MG Tablet PO (21:46)
[2021-04-17] MEDS: QUEtiapine 25 MG Tablet 50 MG PO (21:47)
[2021-04-18] VITALS (33 sets, daily range): BP systolic 102–154; BP diastolic 51–87; PULSE 60–99; RESP 12–32; TEMP 36.1–36.6; O2SAT 86–95
[2021-04-18 00:40] LABS: Bedside Glucose 226 mg/dL (70-110)
[2021-04-18] MEDS: Heparin Injection (Vial) 5,000 UNIT/ML VIAL 5000 UNIT SC ×3 (05:07→21:23)
[2021-04-18 05:52] LABS: Hematocrit 44.7 % (40-54); Hemoglobin 14.6 g/dL (13.0-16.5); Mean Corp Hgb Conc 32.7 g/dL (32-36); Mean Corpuscular Hgb 28.4 pg (27.0-32.0); Mean Platelet Vol. 8.7 fl (6.2-12.0); Platelet Count 313 K/mm3 (150-450); RBC Distribution Width CV 13.6 % (11.6-14.6); RBC Distribution Width SD 43.6 fl (35.1-43.9); Red Blood Count 5.14 M/mm3 (4.6-6.2); White Blood Count 11.4 K/mm3 (4.4-11.0)
--- NOTE | 2021-04-18 07:10 | PCM.PN.INT ---
Assessment & Plan Assessment/Plan (1) Pneumonia due to COVID-19 virus: (2) Acute respiratory failure with hypoxia: (3) Stage 3b chronic kidney disease: PLAN: RECOMMENDATIONS: 1. Attempt transition to Airvo to facilitate p.o. intake 2. Continue Decadron and Remdesivir 3. Continue telemetry and cardiac medications 4. Hold EDGAR inhibitor given acute kidney injury 5. Continue to monitor blood sugars. Tolerating current Lantus dosing 6. Continue to encourage ambulation as tolerated 7. Delirium protocol. Increase Seroquel as needed IMPRESSIONS: 1. Acute hypoxic respiratory failure secondary to COVID-19 pneumonia Patient has tested positive for COVID-19 and does not have any immunization. Patient was given Decadron in the ER. Patient is open to intubation if necessary. Improvement following BiPAP therapy would be suggestive of derecruitment. Continue to increase activity as tolerated. Anticipate continuing BiPAP with sleep as patient likely has an element of undiagnosed JOSÉ ANTONIO. Will need to follow blood sugars closely given Decadron therapy in the history of diabetes mellitus, but appears to be adequately controlled at this time. Patient is reporting 7 to 10 days of symptoms. Patient has been initiated on Remdesivir per infectious disease. Anticipate completing scheduled doses. Some concern that anxiety may limit patient's ability to tolerate supplemental oxygen. Continue delirium protocol. Seroquel to be increased to help at bedtime. 2. Acute on chronic kidney disease stage IIIb Patient with only a slight increase in creatinine compared to July. Will discontinue IV fluids as this can worsen problem #1. We will hold EDGAR inhibitor and spironolactone. No indication for renal replacement therapy at this time. Blood pressures well controlled at this time. Possibly challenge with diuretics pending chemistries. 3. Diabetes mellitus type 2/morbid obesity/dyslipidemia/hypertension/coronary artery disease status post stents Complicates care, management, recovery and prognosis. If patient is to be continued on Remdesivir, could consider discontinuation of statin. Monitor blood sugars. Better control at this time. Continue telemetry to evaluate for arrhythmias given extensive coronary artery disease. Subjective Subjective Patient did better overnight and tolerating BiPAP with sleep. However, nursing still reported that he had more issues with anxiety. Patient did have a headache, but this responded well to ibuprofen. Patient has been reporting a nonproductive cough. Objective Data Objective Data Vital Signs: Vital Signs Temp Pulse Resp BP Pulse Ox 36.4 C L 89 18 132/65 H 91 04/18/21 00:00 04/18/21 07:04 04/18/21 07:04 04/18/21 07:00 04/18/21 07:04 Oxygen Flow Rate (L/min) 50 Oxygen Delivery Method Bi-pap Weight: 133.5 kg Body Mass Index (BMI) 40.1 Intake & Output: Intake and Output for Last 24 Hours 04/16/21 04/17/21 04/18/21 23:59 23:59 23:59 Intake Total 2406 / 2406 1614 / 1619 263 / 263 Output Total 3100 / 3100 2600 / 2600 400 / 400 Balance -694 / -694 -986 / -981 -137 / -137 Lab / Micro Data Result Diagrams: 04/18/21 05:45 04/17/21 03:15 Labs: Laboratory Results - last 24 hr 04/17/21 08:08: POC Glucose 188 H 04/17/21 11:48: POC Glucose 244 H 04/17/21 16:59: POC Glucose 326 H 04/17/21 21:45: POC Glucose 226 H 04/18/21 05:45: WBC 11.4 H, RBC 5.14, Hgb 14.6, Hct 44.7, MCV 87.0, MCH 28.4, MCHC 32.7, RDW Std Deviation 43.6, RDW Coeff of Amaya 13.6, Plt Count 313, MPV 8.7 Micro: Microbiology 04/14/21 17:10 Blood Culture (Wb) - Arm Left Blood Culture - Preliminary No growth in 48 hours. 04/14/21 15:56 Blood Culture (Wb) - Anticubital Left Blood Culture - Preliminary No growth in 48 hours. 04/14/21 18:05 Mucosa - Nasopharyngeal Respiratory Panel (PCR) - Final 04/14/21 15:56 Mucosa - Nose SARS-CoV-2 Antigen (Rapid) - Final Physical Exam Const alert, oriented x3 and no apparent distress Constitutional Narrative: On BiPAP. Sitting in the chair. General Appearance: cooperative, well developed and anxious; Negative for on BiPAP Nutritional Appearance: morbidly obese HEENT normocephalic, head/scalp atraumatic and moist oral mucous membranes Eyes PERRL and EOMs intact bilaterally Neck full ROM and no lymphadenopathy Chest inspection of chest normal Resp normal respiratory effort and no use of accessory muscles Auscultation: diminished lung sounds; Negative for rales, rhonchi or wheezes Percussion: Negative for dullness Cardio regular rate, regular rhythm, S1 normal heart sound, S2 normal heart sound, no murmurs, no rub and no gallops GI normal to inspection, nondistended, normoactive bowel sounds no CVA tenderness Extremity no clubbing, cyanosis or edema Skin Skin Narrative: Venous stasis changes/varicosities of bilateral lower extremities Neuro oriented x3, CN's II-XII intact bilaterally, moves all extremities and no focal motor deficits Psych cooperative and affect normal Charges/Coding Visit Charges Inpatient E&M: 90356 Subs Hosp L3
[2021-04-18 07:45] LABS: ALB/GLOB Ratio 0.5 RATIO (0.9-2.4); AST(SGOT) 24 U/L (15-37); Alanine Aminotransfer ALT/SGPT 22 U/L (16-61); Albumin, Serum 2.9 g/dL (3.2-5.0); Alkaline Phosphatase 62 U/L (45-117); Anion Gap 7 (5-15); BUN 44 mg/dL (7-18); BUN/Creat Ratio 31.7 RATIO (10-20); Calcium,Total 9.5 mg/dL (8.5-10.1); Chloride 106 mmol/L (98-107); Creatinine, Serum 1.39 mg/dL (0.70-1.30); EST Glomerular Filtration Rate 55 mL/min (>60); Est Glom Filt Rate - Afr Amer 66 mL/min (>60); Estimated Creatinine Clearance 58.93 ml/min; Globulin 5.5 g/dL (2.2-4.2); Glucose 185 mg/dL (74-106); Potassium 4.3 mmol/L (3.5-5.1); Protein, Total 8.4 g/dL (6.4-8.2); Sodium Level 135 mmol/L (136-145)
[2021-04-18 08:31] LABS: Bedside Glucose 200 mg/dL (70-110)
[2021-04-18] MEDS: Insulin Lispro 100 UNIT/ML INSULN.PEN SC ×4 (08:34→21:30)
[2021-04-18] MEDS: Metoprolol(XL)Succ 50 MG Tablet PO (11:20)
[2021-04-18] MEDS: hydroCHLOROthiazide 12.5mg 12.5 MG PO (11:20)
[2021-04-18] MEDS: Aspirin E.C. 81 MG Tablet PO (11:20)
[2021-04-18] MEDS: TICAGRELOR 90 MG TABLET PO ×2 (11:20→21:24)
[2021-04-18] MEDS: dexAMETHasone 4 MG Tablet 6 MG PO (11:20)
[2021-04-18] MEDS: Furosemide 40 MG/4 ML Vial IV (11:20)
[2021-04-18] MEDS: CHLORHEXIDINE GLUC 2% CLOTH 1 EACH TOWELETTE TOPICAL (11:21)
[2021-04-18] MEDS: 0.9% Saline Lock 10 ML Syringe IV ×2 (11:21→21:23)
[2021-04-18] MEDS: Ibuprofen 600 MG Tablet PO ×2 (11:23→21:24)
[2021-04-18 11:51] LABS: Bedside Glucose 227 mg/dL (70-110)
--- NOTE | 2021-04-18 15:50 | PN.HOSP_ITS ---
Subjective Subjective Upset at the lack of progress in his recovery. Objective Data Objective Data Vital Signs: Vital Signs Temp Pulse Resp BP Pulse Ox 36.1 C L 71 20 H 125/61 H 94 04/18/21 13:00 04/18/21 15:00 04/18/21 15:00 04/18/21 15:00 04/18/21 15:00 Oxygen Flow Rate (L/min) 50 Oxygen Delivery Method Airvo Weight: 133.5 kg Body Mass Index (BMI) 40.1 Intake & Output: Intake and Output for Last 24 Hours 04/16/21 04/17/21 04/18/21 23:59 23:59 23:59 Intake Total 2406 / 2406 1614 / 1619 263 / 263 Output Total 3100 / 3100 2600 / 2600 1125 / 1125 Balance -694 / -694 -986 / -981 -862 / -862 Lab / Micro Data Result Diagrams: 04/18/21 05:45 04/18/21 05:45 Labs: Laboratory Results - last 24 hr 04/17/21 11:48: POC Glucose 244 H 04/17/21 16:59: POC Glucose 326 H 04/17/21 21:45: POC Glucose 226 H 04/18/21 05:45: WBC 11.4 H, RBC 5.14, Hgb 14.6, Hct 44.7, MCV 87.0, MCH 28.4, MCHC 32.7, RDW Std Deviation 43.6, RDW Coeff of Amaya 13.6, Plt Count 313, MPV 8.7 04/18/21 05:45: Sodium 135 L, Potassium 4.3, Chloride 106, Carbon Dioxide 22.0, Anion Gap 7, BUN 44 H, Creatinine 1.39 H, Estim Creat Clear Calc 58.93, Est GFR (MDRD) Af Amer 66, Est GFR (MDRD) Non-Af 55 L, BUN/Creatinine Ratio 31.7 H, Gluc ose 185 H, Calcium 9.5, Total Bilirubin 1.00, AST 24, ALT 22, Alkaline Phosphatase 62, Total Protein 8.4 H, Albumin 2.9 L, Globulin 5.5 H, Albumin/Globulin Ratio 0.5 L 04/18/21 08:26: POC Glucose 200 H 04/18/21 11:18: POC Glucose 227 H Micro: Microbiology 04/14/21 17:10 Blood Culture (Wb) - Arm Left Blood Culture - Preliminary No growth in 48 hours. 04/14/21 15:56 Blood Culture (Wb) - Anticubital Left Blood Culture - Preliminary No growth in 48 hours. 04/14/21 18:05 Mucosa - Nasopharyngeal Respiratory Panel (PCR) - Final 04/14/21 15:56 Mucosa - Nose SARS-CoV-2 Antigen (Rapid) - Final Physical Exam Const alert Constitutional Narrative: Up in chair. Resp normal respiratory effort Resp Narrative: Coarse breath sounds bilateral Cardio regular rate, regular rhythm, S1 normal heart sound and S2 normal heart sound GI normal to inspection, nondistended, normoactive bowel sounds, soft to palpation, non-tender and non-distended Extremity normal to inspection Assessment & Plan Assessment/Plan (1) Pneumonia due to COVID-19 virus: (2) Acute respiratory failure with hypoxia: PLAN: 1. Acute COVID-19 pneumonia Patient indicates to me that time onset was the 11th but has indicated others that time onset was 7 to 10 days ago. The latter was seen to make most sense with his timing of worsening. Continue with dexamethasone and remdesivir Infectious disease on consultation 2. Acute hypoxic respiratory failure Improving Secondary to acute COVID-[address] reviewed and showed bilateral diffuse infiltrates Tolerating Arava Inform patient that any improvements will be slow but informed the patient that I am concerned that he could decline quickly. It is unclear to me which direction he is heading in at this time. Patient is open to intubation if necessary 3. CKD 3B BREE ruled out Monitor Avoid nephrotoxic agents 4. CAD Stable at this time Continue with aspirin, atorvastatin and ticagrelor 5. VTE prophylaxis with subcu heparin 6. Disposition: To be determined. Patient expressing displeasure with the lack of progress in regards to his recovery. I keep reiterating with him to expect a slow overall recovery try to reassure him the fact that he is not getting worse. He was likely unsatisfied with those answers. Charges/Coding Visit Charges Inpatient E&M: 26611 Subs Hosp L2
[2021-04-18 16:55] LABS: Bedside Glucose 383 mg/dL (70-110)
[2021-04-18] MEDS: QUEtiapine 100 MG Tablet PO (21:24)
[2021-04-18] MEDS: MELATONIN 10 MG TABLET PO (21:24)
[2021-04-18] MEDS: Atorvastatin Calcium 80 MG Tablet PO (21:24)
[2021-04-18 23:51] LABS: Bedside Glucose 405 mg/dL (70-110)
[2021-04-19] VITALS (33 sets, daily range): BP systolic 98–131; BP diastolic 60–96; PULSE 56–77; RESP 12–26; TEMP 36–36.6; O2SAT 78–96
--- NOTE | 2021-04-19 07:33 | PN.CC_ITS ---
Assessment & Plan Assessment/Plan (1) Pneumonia due to COVID-19 virus: (2) Acute respiratory failure with hypoxia: (3) Stage 3b chronic kidney disease: PLAN: RECOMMENDATIONS: 1. Continue Airvo to facilitate p.o. intake. Possible nasal cannula later today 2. Continue Decadron. Completed Remdesivir 3. Continue telemetry and cardiac medications 4. Hold EDGAR inhibitor given acute kidney injury 5. Continue to monitor blood sugars. Increase Lantus dosing 6. Continue to encourage ambulation as tolerated 7. Delirium protocol. Continue Seroquel as needed IMPRESSIONS: 1. Acute hypoxic respiratory failure secondary to COVID-19 pneumonia Patient has tested positive for COVID-19 and does not have any immunization. Patient was given Decadron in the ER. Patient is open to intubation if necessary. Improvement following BiPAP therapy would be suggestive of derecruitment. Continue to increase activity as tolerated. Anticipate continuing BiPAP with sleep as patient likely has an element of undiagnosed JOSÉ ANTONIO. Will need to follow blood sugars closely given Decadron therapy in the history of diabetes mellitus, but appears to be adequately controlled at this time. Patient is reporting 7 to 10 days of symptoms. Delmi monte has completed Remdesivir per infectious disease. Anticipate completing scheduled doses of Decadron. Some concern that anxiety may limit patient's ability to tolerate supplemental oxygen. Continue delirium protocol. Patient appears to have responded well to Seroquel therapy 2. Acute on chronic kidney disease stage IIIb Patient with only a slight increase in creatinine compared to July. Will discontinue IV fluids as this can worsen problem #1. We will hold EDGAR inhibitor and spironolactone. No indication for renal replacement therapy at this time. Blood pressures well controlled at this time. Possibly challenge with diuretics pending chemistries. 3. Diabetes mellitus type 2/morbid obesity/dyslipidemia/hypertension/coronary artery disease status post stents Complicates care, management, recovery and prognosis. If patient is to be continued on Remdesivir, could consider discontinuation of statin. Monitor blood sugars. Better control at this time. Continue telemetry to evaluate for arrhythmias given extensive coronary artery disease. Subjective Subjective Patient did well overnight. Patient with good response to increase Seroquel dosing and feels that he got a good nights rest. Patient continues to have a nonproductive cough, but denies any pain, nausea or vomiting. Objective Data Objective Data Vital Signs: Vital Signs Temp Pulse Resp BP Pulse Ox 36.6 C 58 L 20 H 105/68 94 04/19/21 00:00 04/19/21 05:35 04/19/21 05:35 04/19/21 02:00 04/19/21 06:43 Oxygen Flow Rate (L/min) 50 Oxygen Delivery Method Airvo Weight: 133.5 kg Body Mass Index (BMI) 40.1 Intake & Output: Intake and Output for Last 24 Hours 04/17/21 04/18/21 04/19/21 23:59 23:59 23:59 Intake Total 1614 / 1619 2012 250 / 250 Output Total 2600 / 2600 3375 / 3375 0 / 0 Balance -986 / -981 -1362 / -1362 250 / 250 Lab / Micro Data Result Diagrams: 04/18/21 05:45 04/18/21 05:45 Labs: Laboratory Results - last 24 hr 04/18/21 05:45: Sodium 135 L, Potassium 4.3, Chloride 106, Carbon Dioxide 22.0, Anion Gap 7, BUN 44 H, Creatinine 1.39 H, Estim Creat Clear Calc 58.93, Est GFR (MDRD) Af Amer 66, Est GFR (MDRD) Non-Af 55 L, BUN/Creatinine Ratio 31.7 H, Glucose 185 H, Calcium 9.5, Total Bilirubin 1.00, AST 24, ALT 22, Alkaline Phosphatase 62, Total Protein 8.4 H, Albumin 2.9 L, Globulin 5.5 H, Albumin/ Globulin Ratio 0.5 L 04/18/21 08:26: POC Glucose 200 H 04/18/21 11:18: POC Glucose 227 H 04/18/21 16:45: POC Glucose 383 H 04/18/21 21:29: POC Glucose 405 H Micro: Microbiology 04/14/21 17:10 Blood Culture (Wb) - Arm Left Blood Culture - Preliminary No growth in 48 hours. 04/14/21 15:56 Blood Culture (Wb) - Anticubital Left Blood Culture - Preliminary No growth in 48 hours. 04/14/21 18:05 Mucosa - Nasopharyngeal Respiratory Panel (PCR) - Final 04/14/21 15:56 Mucosa - Nose SARS-CoV-2 Antigen (Rapid) - Final Physical Exam Const alert, oriented x3 and no apparent distress Constitutional Narrative: On Airvo. Sitting in the chair. General Appearance: cooperative, well developed and anxious; Negative for on BiPAP Nutritional Appearance: morbidly obese HEENT normocephalic, head/scalp atraumatic and moist oral mucous membranes Eyes PERRL and EOMs intact bilaterally Neck full ROM and no lymphadenopathy Chest inspection of chest normal Resp normal respiratory effort and no use of accessory muscles Auscultation: diminished lung sounds; Negative for rales, rhonchi or wheezes Percussion: Negative for dullness Cardio regular rate, regular rhythm, S1 normal heart sound, S2 normal heart sound, no murmurs, no rub and no gallops GI normal to inspection, nondistended, normoactive bowel sounds no CVA tenderness Extremity no clubbing, cyanosis or edema Skin Skin Narrative: Venous stasis changes/varicosities of bilateral lower extremities Neuro oriented x3, CN's II-XII intact bilaterally, moves all extremities and no focal motor deficits Psych cooperative and affect normal Charges/Coding Visit Charges Inpatient E&M: 97450 Subs Hosp L3
[2021-04-19 07:36] LABS: Hemoglobin 14.2 g/dL (13.0-16.5); Mean Corp Hgb Conc 32.3 g/dL (32-36); Mean Corpuscular Hgb 28.6 pg (27.0-32.0); Mean Corpuscular Volume 88.7 fL (80-94); POSITIVE COUNT YES; POSITIVE MORPHOLOGY YES; Platelet Count 321 K/mm3 (150-450); RBC Distribution Width CV 13.5 % (11.6-14.6); Red Blood Count 4.96 M/mm3 (4.6-6.2); White Blood Count 10.6 K/mm3 (4.4-11.0)
[2021-04-19 07:42] LABS: Differential Indicated MANUAL DIFF
[2021-04-19 07:47] LABS: ALB/GLOB Ratio 0.5 RATIO (0.9-2.4); AST(SGOT) 17 U/L (15-37); Alanine Aminotransfer ALT/SGPT 22 U/L (16-61); Albumin, Serum 2.6 g/dL (3.2-5.0); Alkaline Phosphatase 59 U/L (45-117); Anion Gap 6 (5-15); BUN 51 mg/dL (7-18); BUN/Creat Ratio 34.2 RATIO (10-20); Calcium,Total 9.2 mg/dL (8.5-10.1); Chloride 104 mmol/L (98-107); Creatinine, Serum 1.49 mg/dL (0.70-1.30); EST Glomerular Filtration Rate 50 mL/min (>60); Est Glom Filt Rate - Afr Amer 61 mL/min (>60); Estimated Creatinine Clearance 54.97 ml/min; Globulin 5.1 g/dL (2.2-4.2); Glucose 238 mg/dL (74-106); Potassium 4.4 mmol/L (3.5-5.1); Protein, Total 7.7 g/dL (6.4-8.2); Sodium Level 135 mmol/L (136-145)
[2021-04-19 08:12] LABS: Lymphocyte 13 % (19-41); Metamyelocyte 3 % (0-1); Monocyte 3 % (0-10); Myelocyte 1 % (0-0); Neutrophil-Band 3 % (0-5); Neutrophil-Segmented 77 % (47-70); Platelet Estimate ADEQUATE (ADEQ); Total Cells Counted 100 (MANUAL DIFF)
[2021-04-19 08:13] LABS: Absolute Lymphocyte Count 1.37 X10^3/uL (0.83-4.51); Absolute Neutrophil Count 8.5 X10^3/uL (2.0-7.7); Lymphocyte # 1.37 X10^3/ul (0.83-4.51); Neutrophil # 8.48 X10^3/uL (2.7-7.7); Red Cell Morphology NORM C+C NORMAL (NORM C&C)
[2021-04-19] MEDS: Insulin Lispro 100 UNIT/ML INSULN.PEN SC ×3 (08:46→21:15)
[2021-04-19] MEDS: Heparin Injection (Vial) 5,000 UNIT/ML VIAL 5000 UNIT SC ×3 (08:46→21:10)
[2021-04-19] MEDS: dexAMETHasone 4 MG Tablet 6 MG PO (08:47)
[2021-04-19] MEDS: TICAGRELOR 90 MG TABLET PO ×2 (08:47→21:10)
[2021-04-19] MEDS: CHLORHEXIDINE GLUC 2% CLOTH 1 EACH TOWELETTE TOPICAL (08:47)
[2021-04-19] MEDS: hydroCHLOROthiazide 12.5mg 12.5 MG PO (08:47)
[2021-04-19] MEDS: Metoprolol(XL)Succ 50 MG Tablet PO (08:47)
[2021-04-19] MEDS: Aspirin E.C. 81 MG Tablet PO (08:48)
[2021-04-19 09:01] LABS: Bedside Glucose 211 mg/dL (70-110)
--- NOTE | 2021-04-19 10:43 | PN.HOSP_ITS ---
Subjective Subjective Tolerating Airvo. No new complaints. Objective Data Objective Data Vital Signs: Vital Signs Temp Pulse Resp BP Pulse Ox 36.1 C L 69 15 128/96 H 93 04/19/21 08:44 04/19/21 09:00 04/19/21 09:00 04/19/21 09:00 04/19/21 09:00 Oxygen Flow Rate (L/min) 50 Oxygen Delivery Method Airvo Weight: 133.5 kg Body Mass Index (BMI) 40.1 Intake & Output: Intake and Output for Last 24 Hours 04/17/21 04/18/21 04/19/21 23:59 23:59 23:59 Intake Total 1614 / 1619 2012 250 / 250 Output Total 2600 / 2600 3375 / 3375 450 / 450 Balance -986 / -981 -1362 / -1362 -200 / -200 Lab / Micro Data Result Diagrams: 04/19/21 07:20 04/19/21 07:20 Labs: Laboratory Results - last 24 hr 04/18/21 11:18: POC Glucose 227 H 04/18/21 16:45: POC Glucose 383 H 04/18/21 21:29: POC Glucose 405 H 04/19/21 07:20: WBC 10.6, RBC 4.96, Hgb 14.2, Hct 44.0, MCV 88.7, MCH 28.6, MCHC 32.3, RDW Std Deviation 44.0 H, RDW Coeff of Amaya 13.5, Plt Count 321, MPV 9.0, Neut % (Auto) Not Reportable, Absolute Neuts (auto) 8.5 H, Absolute Lymphs ( auto) 1.37, Total Counted 100, Neutrophils % (Manual) 77 H, Band Neutrophils % 3, Lymphocytes % (Manual) 13 L, Monocytes % (Manual) 3, Metamyelocytes % 3 H, Myelocytes % 1 H, Diff Path Review December, Platelet Estimate ADEQUATE, RBC Morphology NORM C+C 04/19/21 07:20: Sodium 135 L, Potassium 4.4, Chloride 104, Carbon Dioxide 25.0, Anion Gap 6, BUN 51 H, Creatinine 1.49 H, Estim Creat Clear Calc 54.97, Est GFR (MDRD) Af Amer 61, Est GFR (MDRD) Non-Af 50 L, BUN/Creatinine Ratio 34.2 H, Glucose 238 H, Calcium 9.2, Total Bilirubin 0.80, AST 17, ALT 22, Alkaline Phosphatase 59, Total Protein 7.7, Albumin 2.6 L, Globulin 5.1 H, Albumin/Globulin Ratio 0.5 L 04/19/21 08:37: POC Glucose 211 H Micro: Microbiology 04/14/21 17:10 Blood Culture (Wb) - Arm Left Blood Culture - Preliminary No growth in 48 hours. 04/14/21 15:56 Blood Culture (Wb) - Anticubital Left Blood Culture - Preliminary No growth in 48 hours. 04/14/21 18:05 Mucosa - Nasopharyngeal Respiratory Panel (PCR) - Final 04/14/21 15:56 Mucosa - Nose SARS-CoV-2 Antigen (Rapid) - Final Physical Exam Const alert Resp normal respiratory effort Resp Narrative: faint basilar crackles. Cardio regular rate, regular rhythm, S1 normal heart sound and S2 normal heart sound GI normal to inspection, nondistended, normoactive bowel sounds, soft to palpation, non-tender and non-distended Extremity normal to inspection Assessment & Plan Assessment/Plan (1) Pneumonia due to COVID-19 virus: (2) Acute respiratory failure with hypoxia: PLAN: 1. Acute COVID-19 pneumonia 04/07/2021 date of onset Continue with dexamethasone remdesivir completed Infectious disease on consultation 2. Acute hypoxic respiratory failure Improving Secondary to acute COVID-[address] reviewed and showed bilateral diffuse infiltrates Tolerating Arava Inform patient that any improvements will be slow but informed the patient that I am concerned that he could decline quickly. It is unclear to me which direction he is heading in at this time. Patient is open to intubation if necessary 3. CKD 3B BREE ruled out Monitor Avoid nephrotoxic agents 4. CAD Stable at this time Continue with aspirin, atorvastatin and ticagrelor 5. VTE prophylaxis with subcu heparin 6. Disposition: To be determined. Patient expressing displeasure with the lack of progress in regards to his recovery. I keep reiterating with him to expect a slow overall recovery try to reassure him the fact that he is not getting worse. He was likely unsatisfied with those answers. Charges/Coding Visit Charges Inpatient E&M: 38767 Subs Hosp L2
[2021-04-19] MEDS: Furosemide 40 MG/4 ML Vial IV (13:59)
[2021-04-19] MEDS: Ibuprofen 600 MG Tablet PO (17:49)
[2021-04-19] MEDS: Atorvastatin Calcium 80 MG Tablet PO (21:10)
[2021-04-19] MEDS: MELATONIN 10 MG TABLET PO (21:10)
[2021-04-19 21:25] LABS: Bedside Glucose 436 mg/dL (70-110)
[2021-04-19 21:35] LABS: Bedside Glucose 419 mg/dL (70-110)
[2021-04-20] VITALS (25 sets, daily range): BP systolic 93–135; BP diastolic 58–82; PULSE 55–100; RESP 12–34; TEMP 35.9–36.6; O2SAT 73–96
[2021-04-20] MEDS: Ibuprofen 600 MG Tablet PO ×3 (03:14→21:22)
[2021-04-20] MEDS: Heparin Injection (Vial) 5,000 UNIT/ML VIAL 5000 UNIT SC ×3 (05:11→21:06)
[2021-04-20 06:13] LABS: Hematocrit 44.7 % (40-54); Hemoglobin 14.9 g/dL (13.0-16.5); Mean Corp Hgb Conc 33.3 g/dL (32-36); Mean Corpuscular Hgb 28.8 pg (27.0-32.0); Mean Corpuscular Volume 86.3 fL (80-94); Mean Platelet Vol. 8.8 fl (6.2-12.0); POSITIVE COUNT YES; POSITIVE MORPHOLOGY YES; Platelet Count 412 K/mm3 (150-450); RBC Distribution Width CV 13.5 % (11.6-14.6); RBC Distribution Width SD 42.7 fl (35.1-43.9); Red Blood Count 5.18 M/mm3 (4.6-6.2)
[2021-04-20 06:17] LABS: Differential Indicated MANUAL DIFF
[2021-04-20 06:26] LABS: Anion Gap 10 (5-15); BUN 60 mg/dL (7-18); BUN/Creat Ratio 38.2 RATIO (10-20); Calcium,Total 9.3 mg/dL (8.5-10.1); Chloride 102 mmol/L (98-107); Creatinine, Serum 1.57 mg/dL (0.70-1.30); EST Glomerular Filtration Rate 47 mL/min (>60); Est Glom Filt Rate - Afr Amer 57 mL/min (>60); Estimated Creatinine Clearance 52.17 ml/min; Glucose 223 mg/dL (74-106); Potassium 3.9 mmol/L (3.5-5.1); Sodium Level 134 mmol/L (136-145)
[2021-04-20 06:37] LABS: Total Cells Counted 100 (MANUAL DIFF)
[2021-04-20 06:40] LABS: Lymphocyte 11 % (19-41); Metamyelocyte 1 % (0-1); Monocyte 7 % (0-10); Myelocyte 2 % (0-0); Neutrophil-Segmented 78 % (47-70)
[2021-04-20 06:41] LABS: Absolute Neutrophil Count 9.4 X10^3/uL (2.0-7.7); Neutrophil # 9.38 X10^3/uL (2.7-7.7); Platelet Estimate ADEQUATE (ADEQ); Red Cell Morphology NORM C+C NORMAL (NORM C&C)
[2021-04-20 06:42] LABS: Absolute Lymphocyte Count 1.32 X10^3/uL (0.83-4.51); Lymphocyte # 1.32 X10^3/ul (0.83-4.51)
--- NOTE | 2021-04-20 08:04 | PN.CC_ITS ---
Assessment & Plan Assessment/Plan (1) Pneumonia due to COVID-19 virus: (2) Acute respiratory failure with hypoxia: (3) Stage 3b chronic kidney disease: PLAN: RECOMMENDATIONS: 1. Continue Airvo to facilitate p.o. intake. Continue BiPAP with sleep empirically 2. Continue Decadron to complete 10 days. Completed Remdesivir 3. Continue telemetry and cardiac medications 4. Continue to hold EDGAR inhibitor given acute kidney injury 5. Continue to monitor blood sugars. Increase Lantus dosing 6. Continue to encourage ambulation as tolerated 7. Delirium protocol. Continue Seroquel as needed with sleep 8. Possible transfer from the intensive care unit if able to tolerate nasal cannula IMPRESSIONS: 1. Acute hypoxic respiratory failure secondary to COVID-19 pneumonia Patient has tested positive for COVID-19 and does not have any immunization. Patient was given Decadron in the ER. Patient is open to intubation if necessary. Improvement following BiPAP therapy would be suggestive of derecruitment. Continue to increase activity as tolerated. Anticipate continuing BiPAP with sleep as patient likely has an element of undiagnosed JOSÉ ANTONIO. Will need to follow blood sugars closely given Decadron therapy in the history of diabetes mellitus, but appears to be adequately controlled at this time. Patient is reporting 7 to 10 days of symptoms. Patient has completed Remdesivir per infectious disease. Anticipate completing scheduled doses of Decadron. Some concern that anxiety may limit patient's ability to tolerate supplemental oxygen. Continue delirium protocol. Patient appears to have responded well to Seroquel therapy. Patient slowly improving. Potentially attempt regular nasal cannula today. If patient is able to tolerate, possible transfer from the intensive care unit. 2. Acute on chronic kidney disease stage IIIb Patient with only a slight increase in creatinine compared to July. Will discontinue IV fluids as this can worsen problem #1. We will hold EDGAR inhibitor and spironolactone. No indication for renal replacement therapy at this time. Blood pressures well controlled at this time. Hold on diuretics today given renal function. 3. Diabetes mellitus type 2/morbid obesity/dyslipidemia/hypertension/coronary artery disease status post stents Complicates care, management, recovery and prognosis. If patient is to be continued on Remdesivir, could consider discontinuation of statin. Monitor blood sugars. Better control at this time. Continue telemetry to evaluate for arrhythmias given extensive coronary artery disease. Subjective Subjective Patient did well overnight. No acute issues were reported. Patient denies any chest pain, nausea or vomiting. Patient's oxygenation is slightly improved. Patient continues to have a cough that is nonproductive. Patient was able to tolerate BiPAP for sleep. Objective Data Objective Data Vital Signs: Vital Signs Temp Pulse Resp BP Pulse Ox 36.1 C L 58 L 20 H 97/66 96 04/20/21 07:00 04/20/21 07:00 04/20/21 07:00 04/20/21 07:00 04/20/21 07:00 Oxygen Flow Rate (L/min) 55 Oxygen Delivery Method Airvo Weight: 133.1 kg Body Mass Index (BMI) 40.1 Intake & Output: Intake and Output for Last 24 Hours 04/18/21 04/19/21 04/20/21 23:59 23:59 23:59 Intake Total 2012 1250 / 1700 650 / 650 Output Total 3375 / 3375 1750 / 2150 800 / 800 Balance -1362 / -1362 -500 / -450 -150 / -150 Lab / Micro Data Result Diagrams: 04/20/21 06:00 04/20/21 06:00 Labs: Laboratory Results - last 24 hr 04/19/21 07:20: Absolute Neuts (auto) 8.5 H, Absolute Lymphs (auto) 1.37, Total Counted 100, Neutrophils % (Manual) 77 H, Band Neutrophils % 3, Lymphocytes % (Manual) 13 L, Monocytes % (Manual) 3, Metamyelocytes % 3 H, Myelocytes % 1 H, Diff Path Review December, Platelet Estimate ADEQUATE, RBC Morphology NORM C+C 04/19/21 08:37: POC Glucose 211 H 04/19/21 17:31: POC Glucose 436 H 04/19/21 21:13: POC Glucose 419 H 04/20/21 06:00: WBC 12.0 H, RBC 5.18, Hgb 14.9, Hct 44.7, MCV 86.3, MCH 28.8, MCHC 33.3, RDW Std Deviation 42.7, RDW Coeff of Amaya 13.5, Plt Count 412, MPV 8. 8, Neut % (Auto) Not Reportable, Absolute Neuts (auto) 9.4 H, Absolute Lymphs (auto) 1.32, Total Counted 100, Neutrophils % (Manual) 78 H, Lymphocytes % (Manual) 11 L, Monocytes % (Manual) 7, Metamyelocytes % 1, Myelocytes % 2 H, Diff Path Review May foll, Platelet Estimate ADEQUATE, RBC Morphology NORM C+C 04/20/21 06:00: Sodium 134 L, Potassium 3.9, Chloride 102, Carbon Dioxide 22.0, Anion Gap 10, BUN 60 H, Creatinine 1.57 H, Estim Creat Clear Calc 52.17, Est GFR (MDRD) Af Amer 57 L, Est GFR (MDRD) Non-Af 47 L, BUN/Creatinine Ratio 38.2 H, Glucose 223 H, Calcium 9.3 Micro: Microbiology 04/14/21 17:10 Blood Culture (Wb) - Arm Left Blood Culture - Final No growth in 5 days. 04/14/21 15:56 Blood Culture (Wb) - Anticubital Left Blood Culture - Final No growth in 5 days. 04/14/21 18:05 Mucosa - Nasopharyngeal Respiratory Panel (PCR) - Final 04/14/21 15:56 Mucosa - Nose SARS-CoV-2 Antigen (Rapid) - Final Physical Exam Const alert, oriented x3 and no apparent distress Constitutional Narrative: On Airvo. Sitting in the bed. General Appearance: cooperative, well developed and anxious; Negative for on BiPAP Nutritional Appearance: morbidly obese HEENT normocephalic, head/scalp atraumatic and moist oral mucous membranes Eyes PERRL and EOMs intact bilaterally Neck full ROM and no lymphadenopathy Chest inspection of chest normal Resp normal respiratory effort and no use of accessory muscles Auscultation: diminished lung sounds; Negative for rales, rhonchi or wheezes Percussion: Negative for dullness Cardio regular rate, regular rhythm, S1 normal heart sound, S2 normal heart sound, no murmurs, no rub and no gallops GI normal to inspection, nondistended, normoactive bowel sounds no CVA tenderness Extremity no clubbing, cyanosis or edema Skin Skin Narrative: Venous stasis changes/varicosities of bilateral lower extremities Neuro oriented x3, CN's II-XII intact bilaterally, moves all extremities and no focal motor deficits Psych cooperative and affect normal Charges/Coding Visit Charges Inpatient E&M: 35077 Subs Hosp L3
[2021-04-20] MEDS: Insulin Lispro 100 UNIT/ML INSULN.PEN SC ×4 (08:22→21:06)
[2021-04-20] MEDS: hydroCHLOROthiazide 12.5mg 12.5 MG PO (10:13)
[2021-04-20] MEDS: dexAMETHasone 4 MG Tablet 6 MG PO (10:13)
[2021-04-20] MEDS: TICAGRELOR 90 MG TABLET PO ×2 (10:13→21:06)
[2021-04-20] MEDS: Aspirin E.C. 81 MG Tablet PO (10:13)
[2021-04-20] MEDS: CHLORHEXIDINE GLUC 2% CLOTH 1 EACH TOWELETTE TOPICAL (10:13)
[2021-04-20 10:20] LABS: Bedside Glucose 187 mg/dL (70-110)
--- NOTE | 2021-04-20 10:57 | PCM.PN.HOSP ---
Subjective Subjective breathing well on nasal canula. nose is dry and congested. Objective Data Objective Data Vital Signs: Vital Signs Temp Pulse Resp BP Pulse Ox 36.1 C L 69 20 H 99/67 86 04/20/21 07:00 04/20/21 10:12 04/20/21 07:00 04/20/21 10:12 04/20/21 08:09 Oxygen Flow Rate (L/min) 55 Oxygen Delivery Method Airvo Weight: 133.1 kg Body Mass Index (BMI) 40.1 Intake & Output: Intake and Output for Last 24 Hours 04/18/21 04/19/21 04/20/21 23:59 23:59 23:59 Intake Total 2012 1250 / 1700 650 / 650 Output Total 3375 / 3375 1750 / 2150 800 / 800 Balance -1362 / -1362 -500 / -450 -150 / -150 Lab / Micro Data Result Diagrams: 04/20/21 06:00 04/20/21 06:00 Labs: Laboratory Results - last 24 hr 04/19/21 17:31: POC Glucose 436 H 04/19/21 21:13: POC Glucose 419 H 04/20/21 06:00: WBC 12.0 H, RBC 5.18, Hgb 14.9, Hct 44.7, MCV 86.3, MCH 28.8, MCHC 33.3, RDW Std Deviation 42.7, RDW Coeff of Amaya 13.5, Plt Count 412, MPV 8.8, Neut % (Auto) Not Reportable, Absolute Neuts (auto) 9.4 H, Absolute Lymphs (auto) 1.32, Total Counted 100, Neutrophils % (Manual) 78 H, Lymphocytes % (Manual) 11 L, Monocytes % (Manual) 7, Metamyelocytes % 1, Myelocytes % 2 H, Diff Path Review December, Platelet Estimate ADEQUATE, RBC Morphology NORM C+C 04/20/21 06:00: Sodium 134 L, Potassium 3.9, Chloride 102, Carbon Dioxide 22.0, Anion Gap 10, BUN 60 H, Creatinine 1.57 H, Estim Creat Clear Calc 52.17, Est GFR (MDRD) Af Amer 57 L, Est GFR (MDRD) Non-Af 47 L, BUN/Creatinine Ratio 38.2 H, Glucose 223 H, Calcium 9.3 04/20/21 08:17: POC Glucose 187 H Micro: Microbiology 04/14/21 17:10 Blood Culture (Wb) - Arm Left Blood Culture - Final No growth in 5 days. 04/14/21 15:56 Blood Culture (Wb) - Anticubital Left Blood Culture - Final No growth in 5 days. 04/14/21 18:05 Mucosa - Nasopharyngeal Respiratory Panel (PCR) - Final 04/14/21 15:56 Mucosa - Nose SARS-CoV-2 Antigen (Rapid) - Final Physical Exam Const alert Resp normal respiratory effort, no retractions and no use of accessory muscles Resp Narrative: coarse BS bilaterally Cardio regular rate, regular rhythm, S1 normal heart sound and S2 normal heart sound GI normal to inspection, nondistended, normoactive bowel sounds, soft to palpation, non-tender and non-distended Assessment & Plan Assessment/Plan (1) Pneumonia due to COVID-19 virus: (2) Acute respiratory failure with hypoxia: PLAN: 1. Acute COVID-19 pneumonia 04/07/2021 date of onset Continue with dexamethasone remdesivir completed Infectious disease on consultation 2. Acute hypoxic respiratory failure Improving Secondary to acute COVID-[address] reviewed and showed bilateral diffuse infiltrates Inform patient that any improvements will be slow but informed the patient that I am concerned that he could decline quickly. It is unclear to me which direction he is heading in at this time. Patient is open to intubation if necessary tolerating high-flow oxygen 3. CKD 3B BREE ruled out Monitor Avoid nephrotoxic agents 4. CAD Stable at this time Continue with aspirin, atorvastatin and ticagrelor 5. VTE prophylaxis with subcu heparin 6. Disposition: To be determined. Advised pt of slow recovery. Goal for discharge is ambulatory oxygenation on 6liters or less. Charges/Coding Visit Charges Inpatient E&M: 74363 Subs Hosp L2
[2021-04-20] MEDS: Sodium Chloride 0.65% 1 SPRAY SPRAY.BTL 2 SPRAY NASAL (12:33)
[2021-04-20 12:41] LABS: Bedside Glucose 256 mg/dL (70-110)
[2021-04-20 17:01] LABS: Bedside Glucose 389 mg/dL (70-110)
[2021-04-20] MEDS: MELATONIN 10 MG TABLET PO (21:06)
[2021-04-20] MEDS: Atorvastatin Calcium 80 MG Tablet PO (21:06)
[2021-04-20 21:25] LABS: Bedside Glucose 384 mg/dL (70-110)
[2021-04-21] VITALS (15 sets, daily range): BP systolic 121–142; BP diastolic 48–85; PULSE 62–86; RESP 12–19; TEMP 36.3–36.7; O2SAT 84–98
--- NOTE | 2021-04-21 02:54 | CPS ---
Nurse called to inform me that patient isnt able to sleep with BIPAP on and wishes to have it off. Patient removed from BIPAP and placed back on 8 liter cannula
[2021-04-21] MEDS: Insulin Lispro 100 UNIT/ML INSULN.PEN SC ×4 (06:33→21:00)
[2021-04-21] MEDS: Heparin Injection (Vial) 5,000 UNIT/ML VIAL 5000 UNIT SC ×3 (06:33→20:59)
[2021-04-21 06:46] LABS: Bedside Glucose 204 mg/dL (70-110)
[2021-04-21 07:34] LABS: Hematocrit 45.2 % (40-54); Hemoglobin 15.1 g/dL (13.0-16.5); Mean Corp Hgb Conc 33.4 g/dL (32-36); Mean Corpuscular Volume 86.9 fL (80-94); Mean Platelet Vol. 8.6 fl (6.2-12.0); POSITIVE COUNT YES; POSITIVE MORPHOLOGY YES; Platelet Count 401 K/mm3 (150-450); RBC Distribution Width CV 13.2 % (11.6-14.6); RBC Distribution Width SD 42.2 fl (35.1-43.9); White Blood Count 10.6 K/mm3 (4.4-11.0)
[2021-04-21 07:50] LABS: ALB/GLOB Ratio 0.5 RATIO (0.9-2.4); AST(SGOT) 22 U/L (15-37); Alanine Aminotransfer ALT/SGPT 27 U/L (16-61); Albumin, Serum 2.6 g/dL (3.2-5.0); Alkaline Phosphatase 63 U/L (45-117); Anion Gap 6 (5-15); BUN 58 mg/dL (7-18); BUN/Creat Ratio 37.4 RATIO (10-20); Calcium,Total 9.2 mg/dL (8.5-10.1); Chloride 101 mmol/L (98-107); Creatinine, Serum 1.55 mg/dL (0.70-1.30); EST Glomerular Filtration Rate 48 mL/min (>60); Est Glom Filt Rate - Afr Amer 58 mL/min (>60); Estimated Creatinine Clearance 52.85 ml/min; Globulin 5.4 g/dL (2.2-4.2); Glucose 196 mg/dL (74-106); Sodium Level 133 mmol/L (136-145)
[2021-04-21 08:09] LABS: Differential Indicated MANUAL DIFF
[2021-04-21 08:55] LABS: Eosinophil 2 % (0-5); Lymphocyte 8 % (19-41); Metamyelocyte 1 % (0-1); Monocyte 14 % (0-10); Myelocyte 2 % (0-0); Neutrophil-Band 5 % (0-5); Neutrophil-Segmented 68 % (47-70); Total Cells Counted 100 (MANUAL DIFF)
[2021-04-21 08:56] LABS: Platelet Estimate ADEQUATE (ADEQ); Red Cell Morphology NORM C+C NORMAL (NORM C&C)
[2021-04-21 08:57] LABS: Absolute Lymphocyte Count 0.85 X10^3/uL (0.83-4.51); Absolute Neutrophil Count 7.7 X10^3/uL (2.0-7.7)
[2021-04-21] MEDS: dexAMETHasone 4 MG Tablet 6 MG PO (09:35)
[2021-04-21] MEDS: hydroCHLOROthiazide 12.5mg 12.5 MG PO (09:36)
[2021-04-21] MEDS: TICAGRELOR 90 MG TABLET PO ×2 (09:36→20:59)
[2021-04-21] MEDS: Aspirin E.C. 81 MG Tablet PO (09:36)
[2021-04-21] MEDS: Metoprolol(XL)Succ 50 MG Tablet PO (09:36)
--- NOTE | 2021-04-21 11:19 | PCM.PN.INT ---
Assessment & Plan Assessment/Plan (1) Pneumonia due to COVID-19 virus: (2) Acute respiratory failure with hypoxia: (3) Stage 3b chronic kidney disease: PLAN: RECOMMENDATIONS: 1. Continue nasal cannula to support oxygenation. Continue BiPAP with sleep empirically 2. Continue Decadron to complete 10 days. Completed Remdesivir 3. Continue telemetry and cardiac medications 4. Likely okay to reinitiate EDGAR inhibitor from my perspective 5. Continue to monitor blood sugars. Increase Lantus dosing 6. Continue to encourage ambulation as tolerated 7. Delirium protocol. Continue Seroquel as needed with sleep 8. Potential discharge if able to tolerate ambulation on 6 L or less IMPRESSIONS: 1. Acute hypoxic respiratory failure secondary to COVID-19 pneumonia Patient has tested positive for COVID-19 and does not have any immunization. Patient was given Decadron in the ER. Patient is open to intubation if necessary. Improvement following BiPAP therapy would be suggestive of derecruitment. Continue to increase activity as tolerated. Anticipate continuing BiPAP with sleep as patient likely has an element of undiagnosed JOSÉ ANTONIO. Will need to follow blood sugars closely given Decadron therapy in the history of diabetes mellitus, but appears to be adequately controlled at this time. Patient is reporting 7 to 10 days of symptoms. Patient has completed Remdesivir per infectious disease. Anticipate completing scheduled doses of Decadron. Patient continues to improve. Continue to wean oxygen as tolerated. Walking oximetry when patient can tolerate 3 to 4 L at rest. If able to be discharged, patient should follow-up in our office in 4 weeks for reevaluation of supplemental oxygen. 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 2. Acute on chronic kidney disease stage IIIb Patient with only a slight increase in creatinine compared to July. Will discontinue IV fluids as this can worsen problem #1. Likely okay to reinitiate baseline medications in a stepwise fashion. No indication for renal replacement therapy at this time. Blood pressures well controlled at this time. 3. Diabetes mellitus type 2/morbid obesity/dyslipidemia/hypertension/coronary artery disease status post stents Complicates care, management, recovery and prognosis. If patient is to be continued on Remdesivir, could consider discontinuation of statin. Monitor blood sugars. Better control at this time. Continue telemetry to evaluate for arrhythmias given extensive coronary artery disease. Subjective Subjective Patient did well overnight. Patient was transferred to the floor yesterday and did well overnight. Patient is not reporting any chest pain, but does have dyspnea on exertion with moving around the room. Patient states his sats will drop, but recovers quickly with rest. Patient continues with a nonproductive cough. Objective Data Objective Data Vital Signs: Vital Signs Temp Pulse Resp BP Pulse Ox 36.3 C L 83 18 121/57 H 96 04/21/21 09:19 04/21/21 09:36 04/21/21 09:19 04/21/21 09:19 04/21/21 09:19 Oxygen Flow Rate (L/min) [ 6 AMBULATING with Oxygen #1] Oxygen Flow Rate (L/min) [At 6 REST with Oxygen] Oxygen Flow Rate (L/min) 6 Oxygen Delivery Method Nasal Cannula Weight: 131.1 kg Body Mass Index (BMI) 40.1 Intake & Output: Intake and Output for Last 24 Hours 04/19/21 04/20/21 04/21/21 23:59 23:59 23:59 Intake Total 1250 / 1700 650 / 650 Output Total 1750 / 2150 3100 / 3100 Balance -500 / -450 -2450 / -2450 Lab / Micro Data Result Diagrams: 04/21/21 07:16 04/21/21 07:16 Labs: Laboratory Results - last 24 hr 04/20/21 12:29: POC Glucose 256 H 04/20/21 16:42: POC Glucose 389 H 04/20/21 21:03: POC Glucose 384 H 04/21/21 06:31: POC Glucose 204 H 04/21/21 07:16: WBC 10.6, RBC 5.20, Hgb 15.1, Hct 45.2, MCV 86.9, MCH 29.0, MCHC 33.4, RDW Std Deviation 42.2, RDW Coeff of Amaya 13.2, Plt Count 401, MPV 8.6, Neut % (Auto) Not Reportable, Absolute Neuts (auto) 7.7, Absolute Lymphs (auto) 0.85, Total Counted 100, Neutrophils % (Manual) 68, Band Neutrophils % 5, Lymphocytes % (Manual) 8 L, Monocytes % (Manual) 14 H, Eosinophils % (Manual) 2, Metamyelocytes % 1, Myelocytes % 2 H, Diff Path Review May foll, Platelet Estimate ADEQUATE, RBC Morphology NORM C+C 04/21/21 07:16: Sodium 133 L, Potassium 4.0, Chloride 101, Carbon Dioxide 26.0, Anion Gap 6, BUN 58 H, Creatinine 1.55 H, Estim Creat Clear Calc 52.85, Est GFR (MDRD) Af Amer 58 L, Est GFR (MDRD) Non-Af 48 L, BUN/Creatinine Ratio 37.4 H, Glucose 196 H, Calcium 9.2, Total Bilirubin 0.90, AST 22, ALT 27, Alkaline Phosphatase 63, Total Protein 8.0, Albumin 2.6 L, Globulin 5.4 H, Albumin/Globulin Ratio 0.5 L Micro: Microbiology 04/14/21 17:10 Blood Culture (Wb) - Arm Left Blood Culture - Final No growth in 5 days. 04/14/21 15:56 Blood Culture (Wb) - Anticubital Left Blood Culture - Final No growth in 5 days. 04/14/21 18:05 Mucosa - Nasopharyngeal Respiratory Panel (PCR) - Final 04/14/21 15:56 Mucosa - Nose SARS-CoV-2 Antigen (Rapid) - Final Physical Exam Const alert, oriented x3 and no apparent distress Constitutional Narrative: On nasal cannula. Sitting in the chair. General Appearance: cooperative, well developed and anxious; Negative for on BiPAP Nutritional Appearance: morbidly obese HEENT normocephalic, head/scalp atraumatic and moist oral mucous membranes Eyes PERRL and EOMs intact bilaterally Neck full ROM and no lymphadenopathy Chest inspection of chest normal Resp normal respiratory effort and no use of accessory muscles Auscultation: diminished lung sounds; Negative for rales, rhonchi or wheezes Percussion: Negative for dullness Cardio regular rate, regular rhythm, S1 normal heart sound, S2 normal heart sound, no murmurs, no rub and no gallops GI normal to inspection, nondistended, normoactive bowel sounds no CVA tenderness Extremity no clubbing, cyanosis or edema Skin Skin Narrative: Venous stasis changes/varicosities of bilateral lower extremities Neuro oriented x3, CN's II-XII intact bilaterally, moves all extremities and no focal motor deficits Psych cooperative and affect normal Charges/Coding Visit Charges Inpatient E&M: 19049 Subs Hosp L2
[2021-04-21 12:40] LABS: Bedside Glucose 246 mg/dL (70-110)
--- NOTE | 2021-04-21 14:20 | PCM.PN.HOSP ---
Subjective Subjective Feels well. Objective Data Objective Data Vital Signs: Vital Signs Temp Pulse Resp BP Pulse Ox 36.3 C L 86 18 121/57 H 96 04/21/21 09:19 04/21/21 13:00 04/21/21 09:19 04/21/21 09:19 04/21/21 09:19 Oxygen Flow Rate (L/min) [ 6 AMBULATING with Oxygen #1] Oxygen Flow Rate (L/min) [At 6 REST with Oxygen] Oxygen Flow Rate (L/min) 6 Oxygen Delivery Method Nasal Cannula Weight: 131.1 kg Body Mass Index (BMI) 40.1 Intake & Output: Intake and Output for Last 24 Hours 04/19/21 04/20/21 04/21/21 23:59 23:59 23:59 Intake Total 1250 / 1700 650 / 650 Output Total 1750 / 2150 3100 / 3100 Balance -500 / -450 -2450 / -2450 Lab / Micro Data Result Diagrams: 04/21/21 07:16 04/21/21 07:16 Labs: Laboratory Results - last 24 hr 04/20/21 16:42: POC Glucose 389 H 04/20/21 21:03: POC Glucose 384 H 04/21/21 06:31: POC Glucose 204 H 04/21/21 07:16: WBC 10.6, RBC 5.20, Hgb 15.1, Hct 45.2, MCV 86.9, MCH 29.0, MCHC 33.4, RDW Std Deviation 42.2, RDW Coeff of Amaya 13.2, Plt Count 401, MPV 8.6, Neut % (Auto) Not Reportable, Absolute Neuts (auto) 7.7, Absolute Lymphs (auto) 0.85, Total Counted 100, Neutrophils % (Manual) 68, Band Neutrophils % 5, Lymphocytes % (Manual) 8 L, Monocytes % (Manual) 14 H, Eosinophils % (Manual) 2, Metamyelocytes % 1, Myelocytes % 2 H, Diff Path Review December, Platelet Estimate ADEQUATE, RBC Morphology NORM C+C 04/21/21 07:16: Sodium 133 L, Potassium 4.0, Chloride 101, Carbon Dioxide 26.0, Anion Gap 6, BUN 58 H, Creatinine 1.55 H, Estim Creat Clear Calc 52.85, Est GFR (MDRD) Af Amer 58 L, Est GFR (MDRD) Non-Af 48 L, BUN/Creatinine Ratio 37.4 H, Glucose 196 H, Calcium 9.2, Total Bilirubin 0.90, AST 22, ALT 27, Alkaline Phosphatase 63, Total Protein 8.0, Albumin 2.6 L, Globulin 5.4 H, Albumin/Globulin Ratio 0.5 L 04/21/21 12:23: POC Glucose 246 H Micro: Microbiology 04/14/21 17:10 Blood Culture (Wb) - Arm Left Blood Culture - Final No growth in 5 days. 04/14/21 15:56 Blood Culture (Wb) - Anticubital Left Blood Culture - Final No growth in 5 days. 04/14/21 18:05 Mucosa - Nasopharyngeal Respiratory Panel (PCR) - Final 04/14/21 15:56 Mucosa - Nose SARS-CoV-2 Antigen (Rapid) - Final Physical Exam Narrative I ambulated the patient in his room on 6 L nasal cannula any dropped down to 85%. To roughly minutes recovery but patient without any respiratory distress. Const alert Resp normal respiratory effort, no retractions and no use of accessory muscles Cardio regular rate, regular rhythm, S1 normal heart sound and S2 normal heart sound GI normal to inspection, nondistended, normoactive bowel sounds, soft to palpation, non-tender and non-distended Extremity normal to inspection Assessment & Plan Assessment/Plan (1) Pneumonia due to COVID-19 virus: (2) Acute respiratory failure with hypoxia: PLAN: 1. Acute COVID-19 pneumonia 04/07/2021 date of onset Continue with dexamethasone remdesivir completed Infectious disease on consultation 2. Acute hypoxic respiratory failure Improving Secondary to acute COVID-[address] reviewed and showed bilateral diffuse infiltrates Patient tolerated nasal cannula, however he drops down to 85% on 6 L. He does not appear to be in any distress I discussed with him that I would like low bit more time to ensure that he is continuing to improve before discharge. My concern is if he has about where he becomes short of breath he would not have ample oxygen to compensate and may have to come back to the emergency room in such an instance. 3. CKD 3B BREE ruled out Monitor Avoid nephrotoxic agents 4. CAD Stable at this time Continue with aspirin, atorvastatin and ticagrelor 5. VTE prophylaxis with subcu heparin 6. Disposition: To be determined. Advised pt of slow recovery. Goal for discharge is ambulatory oxygenation on 6liters or less. Anticipate discharge next 24 to 48 hours. Charges/Coding Visit Charges Inpatient E&M: 39288 Subs Hosp L2
[2021-04-21 16:41] LABS: Bedside Glucose 365 mg/dL (70-110)
[2021-04-21] MEDS: Ibuprofen 600 MG Tablet PO (16:42)
[2021-04-21] MEDS: Atorvastatin Calcium 80 MG Tablet PO (20:59)
[2021-04-21] MEDS: MELATONIN 10 MG TABLET PO (20:59)
[2021-04-21 21:17] LABS: Bedside Glucose 335 mg/dL (70-110)
[2021-04-22] VITALS (9 sets, daily range): BP systolic 112–122; BP diastolic 75–89; PULSE 55–89; RESP 16–18; TEMP 36.4; O2SAT 84–95
--- NOTE | 2021-04-22 03:26 | CPS ---
Pt on 2-3L nasal o2. Bipap/Avaps no longer needed, pt chooses not to wear bipap tonight. only if he has to.
[2021-04-22] MEDS: Heparin Injection (Vial) 5,000 UNIT/ML VIAL 5000 UNIT SC (06:26)
[2021-04-22] MEDS: Insulin Lispro 100 UNIT/ML INSULN.PEN SC ×2 (06:30→11:23)
[2021-04-22 06:46] LABS: Bedside Glucose 176 mg/dL (70-110)
[2021-04-22 07:17] LABS: ALB/GLOB Ratio 0.5 RATIO (0.9-2.4); AST(SGOT) 24 U/L (15-37); Alanine Aminotransfer ALT/SGPT 29 U/L (16-61); Albumin, Serum 2.5 g/dL (3.2-5.0); Alkaline Phosphatase 61 U/L (45-117); Anion Gap 4 (5-15); BUN 51 mg/dL (7-18); BUN/Creat Ratio 36.4 RATIO (10-20); Calcium,Total 9.3 mg/dL (8.5-10.1); Chloride 102 mmol/L (98-107); EST Glomerular Filtration Rate 54 mL/min (>60); Est Glom Filt Rate - Afr Amer 66 mL/min (>60); Estimated Creatinine Clearance 58.51 ml/min; Glucose 186 mg/dL (74-106); Potassium 4.6 mmol/L (3.5-5.1); Protein, Total 7.5 g/dL (6.4-8.2); Sodium Level 133 mmol/L (136-145)
[2021-04-22] MEDS: Metoprolol(XL)Succ 50 MG Tablet PO (09:24)
[2021-04-22] MEDS: TICAGRELOR 90 MG TABLET PO (09:24)
[2021-04-22] MEDS: hydroCHLOROthiazide 12.5mg 12.5 MG PO (09:24)
[2021-04-22] MEDS: dexAMETHasone 4 MG Tablet 6 MG PO (09:24)
[2021-04-22] MEDS: Aspirin E.C. 81 MG Tablet PO (09:24)
--- NOTE | 2021-04-22 10:27 | CASEMGMT ---
Addendum entered by Tasia Huston 04/22/21 10:30: Per therapy notes, pt does not need any further therapy at discharge. Francine PETER CM Original Note: Per Daisy PETER, pt qualifies for 3L w/ ambulation home oxygen. Pt had stated preference for [employer] previously and referral faxed to [facility]. Call to [facility] to notify of referral and pt discharge. Francine PETER CM
--- NOTE | 2021-04-22 11:00 | CASEMGMT ---
ROME CM completed palliative screening tool for Lace/Strata 3. Patient does not meet criteria at this time.
[2021-04-22 11:31] LABS: Bedside Glucose 281 mg/dL (70-110)
--- NOTE | 2021-04-22 11:45 | PCM.DC.SUM ---
Providers Date of Admission: 04/14/21 Primary Care Physician: Dr. Pete Perez MD Consultations 04/14/21 21:13 Consult: Infectious Disease Routine Consulting Provider: Toy Mejia Reason for Consult: covid 19 pneumonia EMERGENT Consult: No Notified: Yes Date Notified: 04/14/21 Time Notified: 20:13 Method of Notification: Verbal Consult: [employer]utter / Pulmonary Medicine Routine Consulting Provider: [facility] Reason for Consult: Acute hypoxic respiratory failure EMERGENT Consult: No Notified: Yes Date Notified: 04/14/21 Time Notified: 21:13 Method of Notification: Text Reason For Visit: POSSIBLE COVID19 PNEUMONIA Diagnosis Discharge Diagnosis (1) Pneumonia due to COVID-19 virus: Status: Acute Code(s): U07.1 - COVID-19; J12.82 - Pneumonia due to coronavirus disease 2019 (2) Acute respiratory failure with hypoxia: Status: Acute Code(s): J96.01 - Acute respiratory failure with hypoxia Medications at Discharge Home Medications Brilinta 90 mg PO BID 04/14/21 aspirin 81 mg PO DAILY 04/14/21 atorvastatin 80 mg PO DAILY 04/14/21 fenofibrate 160 mg PO DAILY 04/14/21 hydrochlorothiazide 12.5 mg PO DAILY 04/14/21 metoprolol succinate 50 mg PO DAILY 04/14/21 ramipril 10 mg PO DAILY 04/14/21 spironolactone 25 mg PO DAILY 04/14/21 dexamethasone 6 mg PO DAILY #2 tab 04/22/21 insulin glargine [Lantus Solostar U-100 Insulin] 35 unit SUBCUT BID #15 ml 04/22/21 needle (disp) #500 ea 04/22/21 Hospital Course Operations None Procedures None Summary of Care Provided Minutes Spent on Discharge: 45 Hospital Course: Patient is a 65 y/o male with a PMH as outlined who was admitted via the ED with a complaint of shortness of breath and upper respiratory symptoms for 8 days prior to admission. He had associated low grade fever and dry cough. On admission, he tested positive for COVID and CT chest was negative for any evidence of PE, but showed severe bilateral viral pneumonia as well as severe CAD. He was admitted and managed for acute hypoxic respiratory failure due to COVID 19 pneumonia and BREE on CKD 3B as his Cr was also elevated. He was started on dexamethasone and remdesivir. ID was consulted. He was transitioned to BIPAP, then AirVo due to his increasing oxygen needs. Hospital course was complicated by delirium which required initiation of seroquel. He was weaned down to oxygen by nasal canula and eventually down to 2L of oxygen. He remained stable and required only 2L of oxygen with ambulation per walking pulse ox. He was discharged home on 04/22/2021. He is to follow up with his PCP in 1-2 weeks. He is to remain in quarantine till 04/07/2021. Britta seen and examined prior to discharge. He felt well and had no other complaints. REview of systems was otherwise negative. Labs and vitals reviewed. Home meds reviewed and reconciled. Of note, due to poorly controlled blood sugars, metformin was discontinued, and patient was started on lantus 35 units bid. He was therefore given a script for SC lantus 35 units bid. Physical Exam Const alert, oriented x3 and no apparent distress General Appearance: cooperative and comfortable Orientation / Consciousness: awake Exam Limitations: no limitations Nutritional Appearance: morbidly obese HEENT normocephalic, head/scalp atraumatic, hearing grossly normal bilaterally and moist oral mucous membranes Eyes PERRL, EOMs intact bilaterally and conjunctivae normal Neck no lymphadenopathy and supple Resp Resp Narrative: mildly diminished breath sounds bibasally, no wheezes or crackles. On 2L of oxygen by nasal canula Cardio regular rate, regular rhythm, S1 normal heart sound, S2 normal heart sound and no murmurs GI normal to inspection, nondistended, normoactive bowel sounds, soft to palpation, non-tender and non-distended Extremity normal to inspection, full ROM and no clubbing, cyanosis or edema Skin no rashes or lesions noted Neuro oriented x3, CN's II-XII intact bilaterally and moves all extremities Sensorium / Orientation: awake and alert Psych affect normal Weight / BMI Weight Weight: 289 lb 14.4 oz Body Mass Index (BMI) 40.1 ABG / Lab / Microbiology Data Result Diagrams: 04/21/21 07:16 04/22/21 06:38 Laboratory: Laboratory Results - last 24 hr 04/21/21 12:23: POC Glucose 246 H 04/21/21 16:21: POC Glucose 365 H 04/21/21 20:56: POC Glucose 335 H 04/22/21 06:25: POC Glucose 176 H 04/22/21 06:38: Sodium 133 L, Potassium 4.6, Chloride 102, Carbon Dioxide 27.0, Anion Gap 4 L, BUN 51 H, Creatinine 1.40 H, Estim Creat Clear Calc 58.51, Est GFR (MDRD) Af Amer 66, Est GFR (MDRD) Non-Af 54 L, BUN/Creatinine Ratio 36.4 H, Glucose 186 H, Calcium 9.3, Total Bilirubin 0.70, AST 24, ALT 29, Alkaline Phosphatase 61, Total Protein 7.5, Albumin 2.5 L, Globulin 5.0 H, Albumin/Globulin Ratio 0.5 L 04/22/21 11:22: POC Glucose 281 H Microbiology: Microbiology 04/14/21 17:10 Blood Culture (Wb) - Arm Left Blood Culture - Final No growth in 5 days. 04/14/21 15:56 Blood Culture (Wb) - Anticubital Left Blood Culture - Final No growth in 5 days. 04/14/21 18:05 Mucosa - Nasopharyngeal Respiratory Panel (PCR) - Final 04/14/21 15:56 Mucosa - Nose SARS-CoV-2 Antigen (Rapid) - Final D/C Instructions Discharge Diet: 1800 Calorie Control Diet Discharge Activity: Return to Normal Activity Weight Bearing Status: Weight bearing as tolerated Call your doctor if you observe: Fever of 101 or Higher, Shortness of breath, Swelling in the ankles and Increased palpitations (irregular heartbeat) Meaningful Use Info Meaningful Use Diagnoses (Choose all that apply): None applicable Discharge Plan Admission Admit Date/Time: 04/14/21 20:28 Primary Reason for Your Visit: acute hypoxic respiratory failure, COVID 19 infection Attending Provider: Alka Sagastuem Primary Care Provider: Peet Perez Consulting Providers: Toy Mejia ; Reggie Angel ; Roberto Colvin ; Keysha Campbell BOOK AGENT Instructions Patient Instructions: Coronavirus Disease 2019 (COVID-19): Prevention, COVID-19 and the Flu: What's the Difference? Additional Instructions / Restrictions: to remain in quarantine till 04/27/2021 Discharge Orders/Prescriptions Prescriptions: New dexamethasone 6 mg tablet 6 mg PO DAILY Qty: 2 RF: 0 Lantus Solostar U-100 Insulin 100 unit/mL (3 mL) insulin pen 35 unit subcut BID Qty: 15 RF: 1 (DME) needle (disp) Needle See Rx Instructions .ROUTE .MEDSUPPLY Qty: 500 RF: 0 Continued atorvastatin 80 mg Tablet 80 mg PO DAILY RF: 0 metoprolol succinate 50 mg Tablet Extended Release 24 Hr 50 mg PO DAILY RF: 0 spironolactone 25 mg Tablet 25 mg PO DAILY RF: 0 aspirin 81 mg Tablet 81 mg PO DAILY RF: 0 ramipril 10 mg Capsule 10 mg PO DAILY RF: 0 fenofibrate 160 mg Tablet 160 mg PO DAILY RF: 0 hydrochlorothiazide 12.5 mg Tablet 12.5 mg PO DAILY RF: 0 Brilinta 90 mg Tablet 90 mg PO BID RF: 0 Discontinued metformin 1,000 mg Tablet 1,000 mg PO BID RF: 0 Referrals / Follow Up: Pete Perez MD [Primary Care Provider] - Within 2 Weeks Disposition Disposition (needs filled in before D/C Order can be placed): Home, Self Care Charges/Coding Visit Charges Inpatient E&M: 17546 Disch Hosp
[2021-04-22 12:46] LABS: Pathologist Review Reviewed
[2021-04-22 12:59] LABS: Pathologist Review Reviewed
[2021-04-22 13:05] LABS: Pathologist Review Reviewed
--- NOTE | 2021-04-22 15:50 | PHA.DC.MR ---
Pharmacy Service has performed discharge medication reconciliation for this patient. The patient's discharge medication list was reviewed for discrepancies and discrepancies were resolved. Home Medications Brilinta 90 mg PO BID 04/14/21 aspirin 81 mg PO DAILY 04/14/21 atorvastatin 80 mg PO DAILY 04/14/21 fenofibrate 160 mg PO DAILY 04/14/21 hydrochlorothiazide 12.5 mg PO DAILY 04/14/21 metoprolol succinate 50 mg PO DAILY 04/14/21 ramipril 10 mg PO DAILY 04/14/21 spironolactone 25 mg PO DAILY 04/14/21 dexamethasone 6 mg PO DAILY #2 tab 04/22/21 insulin glargine [Lantus Solostar U-100 Insulin] 35 unit SUBCUT BID #15 ml 04/22/21 needle (disp) #500 ea 04/22/21
--- NOTE | 2021-04-23 13:42 | CASEMGMT ---
ROME DRUMMOND Discharge Follow-up Phone Call: MIMI: 11 Strata: 3 Call Date: 04/23/21 Discharge Date: 04/22/21 Time of Call: 1340 Duration: 1 min Admitting Diagnosis:Covid ROME DRUMMOND attempted to complete follow-up phone call after recent hospitalization. No answer, voice message left with return contact information.
== END 2021-04-22 15:02 | disposition home or self-care (01) | DRG 177 ==
LOC: ED 19:31 → ICU 04-15 01:12 → PCU 04-22 07:23 → ICU 04-23 13:49
PROVIDERS: Internal Medicine Critical Care Medicine; Internal Medicine Infectious Disease; Admitting Provider Internal Medicine; Emergency Provider Emergency Medicine; PCP Family Medicine; Visit Provider Student in an Organized Health Care Education/Training Program
DX: U07.1 COVID-19 (principal); J12.82 Pneumonia due to coronavirus disease 2019; J96.01 Acute respiratory failure with hypoxia; Z68.41 Body mass index [BMI] 40.0-44.9, adult; I12.9 Hypertensive chronic kidney disease with stage 1 through stage 4 chronic kidney disease, or unspecified chronic kidney disease; E11.22 Type 2 diabetes mellitus with diabetic chronic kidney disease; N18.32 Chronic kidney disease, stage 3b; R41.0 Disorientation, unspecified; I25.10 Atherosclerotic heart disease of native coronary artery without angina pectoris; E11.65 Type 2 diabetes mellitus with hyperglycemia; E78.5 Hyperlipidemia, unspecified; E66.01 Morbid (severe) obesity due to excess calories; Z79.4 Long term (current) use of insulin; Z79.02 Long term (current) use of antithrombotics/antiplatelets; Z79.82 Long term (current) use of aspirin; Z79.899 Other long term (current) drug therapy; Z95.5 Presence of coronary angioplasty implant and graft; Z87.01 Personal history of pneumonia (recurrent)
CPT/HCPCS: 36415; 36600; 71275; 80048; 80053; 80076; 82728; 82803; 82962; 83605; 83735; 83880; 84145; 84484; 85025; 85027; 85379; 85610; 85730; 86140; 87040; 87426; 87633; 87635; 93005; 94003; 94660; 97162; 97166; 97803; 99251; 99285; J7030; J7050; Q9967; U0005; A4216; G0463; J1940; J2405; U0003

== ENCOUNTER → 2021-05-11 08:00 | Outpatient (CLI) | payer BC, SELFPAY ==
[2021-05-11 08:41] LABS: Hemoglobin A1c 8.8 % (3.8-5.6)
[2021-05-11 08:44] LABS: AST(SGOT) 15 U/L (15-37); Alanine Aminotransfer ALT/SGPT 29 U/L (16-61); Albumin, Serum 3.4 g/dL (3.2-5.0); Alkaline Phosphatase 66 U/L (45-117); Anion Gap 7 (5-15); BUN 29 mg/dL (7-18); BUN/Creat Ratio 21.3 RATIO (10-20); Bilirubin, Direct 0.07 mg/dL (0.00-0.30); Calcium,Total 9.6 mg/dL (8.5-10.1); Chloride 106 mmol/L (98-107); Cholesterol 183 mg/dL (200); Creatinine, Serum 1.36 mg/dL (0.70-1.30); EST Glomerular Filtration Rate 56 mL/min (>60); Est Glom Filt Rate - Afr Amer 68 mL/min (>60); Globulin 4.6 g/dL (2.2-4.2); Glucose 255 mg/dL (74-106); High Density Lipoprotein 42 mg/dL; Potassium 5.4 mmol/L (3.5-5.1); Sodium Level 138 mmol/L (136-145); Triglycerides 384 mg/dL; Very Low Density Lipoprotein 77 mg/dL (5-40)
[2021-05-11 08:55] LABS: Microalbumin:Creatinine Ratio 51.5 mg/g CRE (<30 mg/g CRE)
== END ==
PROVIDERS: PCP Family Medicine; Referring Provider Family Medicine; Visit Provider Family Medicine
DX: E11.9 Type 2 diabetes mellitus without complications (principal)
CPT/HCPCS: 36415; 80048; 80061; 80076; 82043; 82570; 83036

== ENCOUNTER → 2021-08-09 10:47 | Outpatient (CLI) | payer BC, SELFPAY ==
[2021-08-09 12:26] LABS: Anion Gap 7 (5-15); BUN 40 mg/dL (7-18); BUN/Creat Ratio 26.5 RATIO (10-20); Calcium,Total 9.1 mg/dL (8.5-10.1); Chloride 107 mmol/L (98-107); Creatinine, Serum 1.51 mg/dL (0.70-1.30); EST Glomerular Filtration Rate 50 mL/min (>60); Est Glom Filt Rate - Afr Amer 60 mL/min (>60); Glucose 193 mg/dL (74-106); Potassium 4.4 mmol/L (3.5-5.1); Sodium Level 136 mmol/L (136-145)
== END ==
PROVIDERS: PCP Family Medicine; Referring Provider Family Medicine; Visit Provider Family Medicine
DX: E11.9 Type 2 diabetes mellitus without complications (principal)
CPT/HCPCS: 36415; 80048

== ENCOUNTER → 2022-04-19 | Outpatient (CLI) | payer BC, SELFPAY ==
[2022-04-19 08:52] LABS: Hemoglobin 15.1 g/dL (13.0-16.5); Mean Corp Hgb Conc 34.3 g/dL (32-36); Mean Corpuscular Hgb 29.3 pg (27.0-32.0); Mean Corpuscular Volume 85.3 fL (80-94); Mean Platelet Vol. 9.7 fl (6.2-12.0); Platelet Count 182 K/mm3 (150-450); RBC Distribution Width CV 12.7 % (11.6-14.6); RBC Distribution Width SD 39.5 fl (35.1-43.9); Red Blood Count 5.16 M/mm3 (4.6-6.2); White Blood Count 7.6 K/mm3 (4.4-11.0)
[2022-04-19 09:29] LABS: AST(SGOT) 18 U/L (15-37); Alanine Aminotransfer ALT/SGPT 69 U/L (16-61); Albumin, Serum 3.8 g/dL (3.2-5.0); Alkaline Phosphatase 50 U/L (45-117); Anion Gap 10 (5-15); BUN 66 mg/dL (7-18); BUN/Creat Ratio 28.1 RATIO (10-20); Calcium,Total 9.4 mg/dL (8.5-10.1); Chloride 95 mmol/L (98-107); Cholesterol 181 mg/dL (200); Creatinine, Serum 2.35 mg/dL (0.70-1.30); EST Glomerular Filtration Rate 30 mL/min (>60); Est Glom Filt Rate - Afr Amer 36 mL/min (>60); Glucose 389 mg/dL (74-106); High Density Lipoprotein 31 mg/dL; Potassium 4.8 mmol/L (3.5-5.1); Protein, Total 7.8 g/dL (6.4-8.2); Sodium Level 129 mmol/L (136-145); Triglycerides 1060 mg/dL
== END | disposition home or self-care (01) ==
PROVIDERS: PCP Family Medicine
DX: I25.10 Atherosclerotic heart disease of native coronary artery without angina pectoris (principal)
CPT/HCPCS: 36415; 80053; 80061; 85027

== ENCOUNTER → 2023-04-04 | Outpatient (CLI) | payer BC, SELFPAY ==
[2023-04-04 09:25] LABS: Absolute Lymphocyte Count 1.88 X10^3/uL (0.83-4.51); Absolute Neutrophil Count 3.8 X10^3/uL (2.0-7.7); Basophil# 0.03 X10^3/uL; Basophil% 0.5 % (0-1); Eosinophils% 3.1 % (0-5); Hematocrit 43.7 % (40-54); Hemoglobin 14.4 g/dL (13.0-16.5); Lymphocyte # 1.88 X10^3/ul (0.83-4.51); Lymphocyte % 28.8 % (19-41); Mean Corpuscular Volume 87.9 fL (80-94); Mean Platelet Vol. 9.5 fl (6.2-12.0); Monocyte# 0.54 X10^3/uL; Monocyte% 8.3 % (0-10); NRBC Flagged by Analyzer 0 % (0-5); Neutrophil # 3.79 X10^3/uL (2.7-7.7); Neutrophil % 57.9 % (47-70); Platelet Count 174 K/mm3 (150-450); RBC Distribution Width CV 13.3 % (11.6-14.6); RBC Distribution Width SD 42.7 fl (35.1-43.9); Red Blood Count 4.97 M/mm3 (4.6-6.2); White Blood Count 6.5 K/mm3 (4.4-11.0)
[2023-04-04 10:19] LABS: ALB/GLOB Ratio 0.8 RATIO (0.9-2.4); AST(SGOT) 25 U/L (15-37); Alanine Aminotransfer ALT/SGPT 27 U/L (16-61); Albumin, Serum 3.4 g/dL (3.2-5.0); Alkaline Phosphatase 49 U/L (45-117); Anion Gap 8 (5-15); BUN 42 mg/dL (7-18); BUN/Creat Ratio 20.6 RATIO (10-20); Calcium,Total 9.2 mg/dL (8.5-10.1); Chloride 101 mmol/L (98-107); Cholesterol 274 mg/dL (200); Creatinine, Serum 2.04 mg/dL (0.70-1.30); EST Glomerular Filtration Rate 35 mL/min (>60); Est Glom Filt Rate - Afr Amer 42 mL/min (>60); Globulin 4.2 g/dL (2.2-4.2); Glucose 325 mg/dL (74-106); High Density Lipoprotein 35 mg/dL; Potassium 5.3 mmol/L (3.5-5.1); Protein, Total 7.6 g/dL (6.4-8.2); Sodium Level 133 mmol/L (136-145); Triglycerides 2263 mg/dL
== END | disposition home or self-care (01) ==
PROVIDERS: PCP Family Medicine
DX: E11.9 Type 2 diabetes mellitus without complications (principal); E78.2 Mixed hyperlipidemia
CPT/HCPCS: 36415; 80053; 80061; 85025

== ENCOUNTER 2023-07-27 19:05 | Inpatient (IN) | payer BC, SELFPAY ==
[2023-07-27 19:06] VITALS: BP 132/80; PULSE 96; RESP 20; TEMP 36.2; O2SAT 98; BMI 42.6
--- NOTE | 2023-07-27 19:10 | EKG12_ITS ---
Test Reason : DYSRHYTHMIA Blood Pressure : / mmHG Vent. Rate : 094 BPM Atrial Rate : 094 BPM P-R Int : 162 ms QRS Dur : 094 ms QT Int : 376 ms P-R-T Axes : 000 179 126 degrees QTc Int : 470 ms Normal sinus rhythm Right axis deviation Septal infarct , age undetermined Abnormal ECG Confirmed by NATHAN LI, HEBER ([id number]), editorial assistant LEXUS QUINN ([id number]) on 07/28/2023 7:53:06 AM Referred By: Confirmed By:HEBER EVANS MD
--- NOTE | 2023-07-27 20:10 | RAD_ITS ---
STUDY: X-RAY CHEST REASON FOR EXAM: Male, 67 years old. chest pain TECHNIQUE: Single frontal view of the chest. COMPARISON: CTA chest April 14, 2021 FINDINGS: Bibasilar airspace disease. 13 mm nodular opacity left lower lobe. There is no demonstrated pleural abnormality. Normal size heart. Normal mediastinum and brandee. Normal visualized pulmonary arteries. Normal visualized aortic arch and descending thoracic aorta. Normal visualized thoracic spine. Normal visualized ribs, clavicles, and shoulders. There is no demonstrated abnormality of the visualized soft tissue structures of the upper abdomen. RAD/Chest 1 View (Portable) IMPRESSION: Bibasilar airspace disease. Left lower lobe nodular density. Differential considerations include infectious, inflammatory, neoplastic etiologies. Recommend follow-up nonemergent CT chest. Electronically Signed: Keshawn Loving MD at 21:11 EST ,
[2023-07-27 20:23] VITALS: BP 145/90; PULSE 84; RESP 20; O2SAT 95
[2023-07-27 20:29] LABS: Absolute Lymphocyte Count 1.65 X10^3/uL (0.83-4.51); Absolute Neutrophil Count 5.3 X10^3/uL (2.0-7.7); Basophil# 0.05 X10^3/uL; Basophil% 0.6 % (0-1); Eosinophil# 0.13 X10^3/uL; Eosinophils% 1.6 % (0-5); Hematocrit 42.3 % (40-54); Hemoglobin 14.1 g/dL (13.0-16.5); Lymphocyte # 1.65 X10^3/ul (0.83-4.51); Lymphocyte % 20.7 % (19-41); Mean Corp Hgb Conc 33.3 g/dL (32-36); Mean Corpuscular Hgb 28.3 pg (27.0-32.0); Mean Corpuscular Volume 84.9 fL (80-94); Mean Platelet Vol. 9.7 fl (6.2-12.0); Monocyte% 8.8 % (0-10); NRBC Flagged by Analyzer 0 % (0-5); Neutrophil % 66.7 % (47-70); Platelet Count 208 K/mm3 (150-450); RBC Distribution Width CV 13.2 % (11.6-14.6); RBC Distribution Width SD 41.3 fl (35.1-43.9); Red Blood Count 4.98 M/mm3 (4.6-6.2)
--- NOTE | 2023-07-27 20:33 | EX.ED.DYSGE1 ---
HPI History of Present Illness Chief Complaint: Abn Labs Informant: patient and family Onset/Context/Timing Onset: Days Context: Gradual Onset Timing: Intermittent Current Severity: Moderate Maximum Severity: Moderate Narrative Narrative: 67-year-old male history of CAD with stents on Brilinta and aspirin, diabetic, poorly controlled and hypertension. Patient states he does not felt well the last week. Around and Thursday after Thanksgiving he just that he felt weak somewhat short of breath and was having heartburn. He went into see his primary care physician and they did labs and his troponin came back at almost 4000. They sent him in the emergency department to be evaluated and admitted. Currently is not having any chest pain. Prior similar symptoms: Yes Recent Illness/Hospitalization: No PFSH PFS Medical History CAD (coronary artery disease) Diabetes mellitus, type 2 High cholesterol HTN (hypertension) Morbid obesity Stage 3b chronic kidney disease Home Medications aspirin 81 mg tablet 81 mg PO DAILY heart health 04/14/21 [History Last Taken Unknown] atorvastatin 80 mg tablet 80 mg PO DAILY cholesterol 04/14/21 [History Last Taken Unknown] fenofibrate 160 mg tablet 160 mg PO DAILY triglycerides 04/14/21 [History Last Taken Unknown] hydrochlorothiazide 12.5 mg tablet 12.5 mg PO DAILY diuretic 04/14/21 [History Last Taken Unknown] metoprolol succinate 50 mg tablet,extended release 24 hr 50 mg PO DAILY blood pressure 04/14/21 [History Last Taken Unknown] ramipril 10 mg capsule 10 mg PO DAILY blood pressure 04/14/21 [History Last Taken Unknown] spironolactone 25 mg tablet 25 mg PO DAILY diuretic 04/14/21 [History Last Taken Unknown] ticagrelor 90 mg tablet (Brilinta) 90 mg PO BID anti platelet 04/14/21 [History Last Taken Unknown] dexamethasone 6 mg tablet 6 mg PO DAILY #2 tabs 04/22/21 [Rx Last Taken Unknown] needle (disp) #500 ea 04/22/21 [Rx Last Taken Unknown] lisinopril 20 mg tablet 20 mg PO .once a day 07/27/23 [History Last Taken Unknown] metformin 1,000 mg tablet 1,000 mg PO BID 07/27/23 [History Last Taken Unknown] nitroglycerin 0.4 mg sublingual tablet 0.4 mg sublingual Q5M PRN chest pain 07/27/23 [History Last Taken Unknown] Allergy/AdvReac Type Severity Reaction Status Date / Time No Known Allergies Allergy Verified 07/27/23 19:06 Family History (Updated 07/27/23 @ 22:[address] Reinaldo Jackson DO) Other CAD (coronary artery disease) Surgical History Stented coronary artery Social History Smoking Status: Never smoker ROS ROS ED ROS Narrative Dyspnea. Heartburn. Review of Systems ROS Unobtainable: Denies due to encephalopathy Constitutional Constitutional ED: Denies chills or fever(s) Eyes Eyes: Denies blurry vision Cardiovascular Cardiovascular: Reports chest pain Respiratory/Chest Respiratory/Chest: Reports dyspnea; Denies cough Gastrointestinal Gastrointestinal: Denies abdominal pain Genitourinary Genitourinary ED: Denies dysuria or hematuria Musculoskeletal Musculoskeletal: Denies arthralgias Integumentary Denies abscess Neurologic Neurologic: Denies headache(s) Psychiatric Psychiatric: Denies anxiety or depression Endocrine Endocrinology: Denies cold intolerance Hematologic/Lymphatic Hematologic/Lymphatic: Reports systems reviewed and no addt'l complaints, except as documented and none Allergic/Immunologic Allergic/Immunologic ED: Denies mouth swelling, tongue swelling or urticaria EXAM Physical Exam Narrative Exam Narrative: Well-appearing 67-year-old male. Vital signs are stable afebrile. Pulse ox 98% on room air no hypoxia. HEENT exam unremarkable. Neck nontender no JVD. Lungs clear to auscultation bilaterally. Heart regular rhythm rate in the 90s no murmur. Chest wall nontender. Abdomen soft nontender. Moving all 4 extremities. Chronic venous stasis changes in both lower extremities. Small wound right mid anterior pedro. 1+ pitting edema bilaterally. Equal symmetrical. Neurologically is awake and alert. No focal motor deficits. Const Vital Signs: 07/27/23 19:06 07/27/23 20:23 07/27/23 20:24 Temperature 97.1 F L Temperature Source Temporal Pulse Rate 96 84 Respiratory Rate 20 H 20 H Respiratory Effort Respiratory Pattern Blood Pressure 132/80 H 145/90 H Blood Pressure Mean 97 108 Pulse Ox 98 95 Oxygen Delivery Method Room Air Room Air Room Air 07/27/23 20:27 07/27/23 21:26 Temperature Temperature Source Pulse Rate 90 Respiratory Rate 18 Respiratory Effort Normal Respiratory Pattern Normal Blood Pressure 114/79 Blood Pressure Mean 90 Pulse Ox 95 Oxygen Delivery Method Positive well nourished, well developed and obese; Negative for cachectic, contractures or unkempt General Appearance ED: well developed and NAD; Negative for unkempt, cachectic, contractures, cyanotic, diaphoretic or pallor Nutritional Appearance: obese; Negative for cachectic HEENT Reports moist mucous membranes; Denies dry mucous membranes Negative for trauma or tenderness Mouth ED: No dry mucous membranes Mouth: No dry mucous membranes Eyes PERRL and EOMs intact bilaterally General Eye ED: Negative for pale conjunctiva or scleral icterus Neck no lymphadenopathy, supple and no JVD General: Negative for tenderness Lymph Lymphatic: Negative for other Chest Wall inspection of chest normal and palpation of chest normal Chest: Negative for other Resp normal respiratory effort and clear to auscultation bilaterally Effort and Inspection: Negative for retractions Auscultation: Negative for rales, rhonchi or wheezes Cardio regular rate, regular rhythm, S1 normal heart sound, S2 normal heart sound and no murmurs GI normal to inspection, nondistended, normoactive bowel sounds, non-tender, non-distended and no masses Inspection: Negative for abdominal distention Auscultation: normoactive bowel sounds Palpation: soft; Negative for tender or guarding Back/Spine no CVA tenderness General Back: Negative for CVA tenderness Cervical Spine: Negative for cervical spine tenderness Thoracic Spine / Upper Back: Negative for thoracic spinal tenderness Lumbar Spine / Lower Back: Negative for lumbar spinal tenderness Extremity Negative for normal to inspection General Extremety ED: Yes edema General Extremity: edema Neuro oriented x3 and CN's II-XII intact bilaterally Sensorium / Orientation: alert; Negative for orientation impaired, lethargic or stuporous Motor Exam: strength 5/5 throughout Psych mental status grossly normal Appearance: Negative for unkempt Attitude: No agitated Mood & Affect: Negative for depressed, anxious or tearful Skin no rashes or lesions noted and no wounds Skin Narrative: Chronic venous stasis changes both lower extremities General Skin Exam: Negative for jaundice or pallor Trauma: Negative for abrasion Wounds: Negative for wounds noted MDM MDM MDM Narrative Medical decision making narrative: 67-year-old male with known coronary disease. Known diabetes. Has had fatigue, shortness of breath and chest discomfort the last several days. Had outpatient labs showing a troponin of almost 4000. He will be admitted to the hospitalist. He is already on Brilinta and aspirin. Spoke to the hospitalist, Dr. Reinaldo Jackson. Patient will be started on heparin bolus and drip. PCU admit. History & Record Review Discussion w/independent historian: Patient and Family Additional record(s) reviewed:: Prior inpatient record, Prior outpatient record, Prior ED visit and Prior labs Lab Data Attestation: I reviewed the patient's lab results. Lab results narrative: CBC shows a white count 8. H&H of 14 and 42. Platelets 208. Outpatient labs from earlier today showed a sodium of 128. BUN and creatinine of 46 and 2.06. Is a history of chronic renal insufficiency. Glucose is elevated at 432 he is diabetic. Troponin 3998. BNP 113. Labs tonight showed a PT and INR of 12 and 1. Sodium of 127. Gap of 10. BUN of 49 creatinine of 2 which is his baseline chronic renal insufficiency. Glucose elevated at 404. His troponin is elevated higher than it was previously it is now 4790. Labs: Laboratory Results - last 24 hr 07/27/23 20:20 WBC 8.0 RBC 4.98 Hgb 14.1 Hct 42.3 MCV 84.9 MCH 28.3 MCHC 33.3 RDW Std Deviation 41.3 RDW Coeff of Amaya 13.2 Plt Count 208 MPV 9.7 Immature Gran % (Auto) 1.600 H Neut % (Auto) 66.7 Lymph % (Auto) 20.7 [place] % (Auto) 8.8 Eos % (Auto) 1.6 Baso % (Auto) 0.6 Absolute Neuts (auto) 5.3 Absolute Lymphs (auto) 1.65 Nucleated RBC % 0 PT 12.8 INR 1.0 Sodium 127 L Potassium 4.5 Chloride 97 L Carbon Dioxide 20.0 L Anion Gap 10 BUN 49 H Creatinine 2.05 H Estim Creat Clear Calc 38.91 Est GFR (MDRD) Af Amer 42 L Est GFR (MDRD) Non-Af 35 L BUN/Creatinine Ratio 23.9 H Glucose 404 H Calcium 9.2 Troponin I High Sens 4790 H* Radiography Chest X-Ray - ED: 1 View, Read by ED Physician, Heart, Lungs, Mediastinum, Bony Structures, No Acute Disease and Chronic Changes Diagnostic Testing: Clinical Impression(s) from Imaging Studies Chest X-Ray 07/27/23 20:10 IMPRESSION: Bibasilar airspace disease. Left lower lobe nodular density. Differential considerations include infectious, inflammatory, neoplastic etiologies. Recommend follow-up nonemergent CT chest. Electronically Signed: Keshawn Loving MD at 21:11 EST , Chest x-ray, portable, single view. Shows normal cardiac silhouette mediastinum. PA there has soft tissue shadowing in both lower lobes or he might have prominent vasculature. Consistent with pulmonary edema. Rhythm Strip Rhythm Strip: Sinus Rhythm Rate: 94 Ectopy: None EKG Initial EKG: Attestation: I personally reviewed and interpreted this EKG as follows: Interpretation: Sinus Rhythm and No Acute Injury Pattern Comments: Normal sinus rhythm rate of 94. No acute signs of ND or ischemia. Discharge Plan Dx/Rx/DC Orders Clinical Impression: Hyperglycemia due to diabetes mellitus, Hx of heart artery stent, Chronic anticoagulation, Non-ST elevated myocardial infarction, Chronic kidney insufficiency, History of coronary artery disease, History of diabetes mellitus Disposition Disposition: Acute Care [facility]
[2023-07-27 20:41] LABS: Prothrombin Time (Protime)PT. 12.8 SECONDS (11.7-14.9)
[2023-07-27 20:59] LABS: Anion Gap 10 (5-15); BUN 49 mg/dL (7-18); BUN/Creat Ratio 23.9 RATIO (10-20); Calcium,Total 9.2 mg/dL (8.5-10.1); Chloride 97 mmol/L (98-107); Creatinine, Serum 2.05 mg/dL (0.70-1.30); EST Glomerular Filtration Rate 35 mL/min (>60); Est Glom Filt Rate - Afr Amer 42 mL/min (>60); Estimated Creatinine Clearance 38.91 ml/min; Glucose 404 mg/dL (74-106); Potassium 4.5 mmol/L (3.5-5.1); Sodium Level 127 mmol/L (136-145); Troponin-I HS (w/2H Reflex) 4790 pg/mL (3.0-78.0)
[2023-07-27 21:26] VITALS: BP 114/79; PULSE 90; RESP 18; O2SAT 95
[2023-07-27] MEDS: Heparin Injection (Vial) 5,000 UNIT/ML VIAL 4000 UNIT IV (21:47)
[2023-07-27] MEDS: HEPARIN/D5w 25,000 UNITS 25,000 UNITS/250 ML IV.SOLN. 10 UNITS CONT INF (21:48)
[2023-07-27 22:25] LABS: Reflex Troponin-HS? (from REC) Y
--- NOTE | 2023-07-27 22:31 | PCM.HP.STD ---
HPI - General General Date of Admission: 07/27/23 Date of Service: 07/27/23 Chief Complaint: Abnormal labs HPI Narrative MEGAN CLEARY, is a 67 M who presents at the request of his primary care doctor due to abnormal labs. Last week, patient just felt very weak was having difficulty getting out of the bed noted that his arms are weak as well. The symptoms did improve but is also noted that he developed an infection on his right leg. Saw his primary care doctor today and I received a prescription for an antibiotic and then had some lab work including a troponin. Lab work came back greater than 3000 and patient was advised to come to the emergency room. Patient had subsequent troponin that came back at 4790.. Patient was a started on a heparin drip. The hospitalist was contacted for admission. Patient denies any chest pain. Does have a history of a stents placed by Dr. Smith and when he had the stents placed that he did have chest pain at that time. [facility] Medical History CAD (coronary artery disease) Diabetes mellitus, type 2 High cholesterol HTN (hypertension) Morbid obesity Stage 3b chronic kidney disease Home Medications aspirin 81 mg tablet 81 mg PO DAILY heart health 04/14/21 [History Last Taken Unknown] atorvastatin 80 mg tablet 80 mg PO DAILY cholesterol 04/14/21 [History Last Taken Unknown] fenofibrate 160 mg tablet 160 mg PO DAILY triglycerides 04/14/21 [History Last Taken Unknown] hydrochlorothiazide 12.5 mg tablet 12.5 mg PO DAILY diuretic 04/14/21 [History Last Taken Unknown] metoprolol succinate 50 mg tablet,extended release 24 hr 50 mg PO DAILY blood pressure 04/14/21 [History Last Taken Unknown] ramipril 10 mg capsule 10 mg PO DAILY blood pressure 04/14/21 [History Last Taken Unknown] spironolactone 25 mg tablet 25 mg PO DAILY diuretic 04/14/21 [History Last Taken Unknown] ticagrelor 90 mg tablet (Brilinta) 90 mg PO BID anti platelet 04/14/21 [History Last Taken Unknown] dexamethasone 6 mg tablet 6 mg PO DAILY #2 tabs 04/22/21 [Rx Last Taken Unknown] needle (disp) #500 ea 04/22/21 [Rx Last Taken Unknown] lisinopril 20 mg tablet 20 mg PO .once a day 07/27/23 [History Last Taken Unknown] metformin 1,000 mg tablet 1,000 mg PO BID 07/27/23 [History Last Taken Unknown] nitroglycerin 0.4 mg sublingual tablet 0.4 mg sublingual Q5M PRN chest pain 07/27/23 [History Last Taken Unknown] Allergy/AdvReac Type Severity Reaction Status Date / Time No Known Allergies Allergy Verified 07/27/23 19:06 Family History (Updated 07/27/23 @ 22:[address] Reinaldo Jackson DO) Other CAD (coronary artery disease) Surgical History Stented coronary artery Social History Smoking Status: Never smoker ROS ROS Narrative Chronic swelling in the legs and chronic redness but right leg is more red and swollen as compared to the left. All review of systems were negative except as mentioned above in the history of present illness and the other review of systems. Vital Signs Vital Signs Vital Signs: 07/27/23 19:06 07/27/23 20:23 07/27/23 20:24 Temperature 36.2 C L Temperature Source Temporal Pulse Rate 96 84 Respiratory Rate 20 H 20 H Respiratory Effort Respiratory Pattern Blood Pressure 132/80 H 145/90 H Blood Pressure Mean 97 108 Pulse Ox 98 95 Oxygen Delivery Method Room Air Room Air Room Air 07/27/23 20:27 07/27/23 21:26 Temperature Temperature Source Pulse Rate 90 Respiratory Rate 18 Respiratory Effort Normal Respiratory Pattern Normal Blood Pressure 114/79 Blood Pressure Mean 90 Pulse Ox 95 Oxygen Delivery Method Weight Weight: 142.519 kg Body Mass Index (BMI) 42.6 Physical Exam Const alert and no apparent distress Constitutional Narrative: Sitting up in bed. No acute respiratory distress. Appears very comfortable. HEENT normocephalic and hearing grossly normal bilaterally Resp normal respiratory effort, no retractions, no use of accessory muscles and clear to auscultation bilaterally Cardio regular rate, regular rhythm, S1 normal heart sound and S2 normal heart sound GI normal to inspection, nondistended, normoactive bowel sounds, soft to palpation, non-distended and hepatosplenomegaly GI Narrative: Obese Extremity Extremity Narrative: Chronic lymphedematous changes lower extremities. Increased redness of the right lower extremity as compared to the left without any significant warmth. Does have a tinea pedis. Neuro Sensorium / Orientation: awake and alert Psych affect normal Results Lab / Micro Data Attestation: I reviewed the patient's lab results. 07/27/23 20:20 07/27/23 20:20 Labs: Laboratory Results - last 24 hr 07/27/23 20:20: WBC 8.0, RBC 4.98, Hgb 14.1, Hct 42.3, MCV 84.9, MCH 28.3, MCHC 33.3, RDW Std Deviation 41.3, RDW Coeff of Amaya 13.2, Plt Count 208, MPV 9.7, Immature Gran % (Auto) 1.600 H, Neut % (Auto) 66.7, Lymph % (Auto) 20.7, [place] % (Auto) 8.8, Eos % (Auto) 1.6, Baso % (Auto) 0.6, Absolute Neuts (auto) 5.3, Absolute Lymphs (auto) 1.65, Nucleated RBC % 0, PT 12.8, INR 1.0, Sodium 127 L, Potassium 4.5, Chloride 97 L, Carbon Dioxide 20.0 L, Anion Gap 10, BUN 49 H, Creatinine 2.05 H, Estim Creat Clear Calc 38.91, Est GFR (MDRD) Af Amer 42 L, Est GFR (MDRD) Non-Af 35 L, BUN/Creatinine Ratio 23.9 H, Glucose 404 H, Calcium 9.2, Troponin I High Sens 4790 H* Rhythm Strip Rhythm Strip: Sinus Rhythm Rate: 94 Ectopy: None EKG Initial EKG: Attestation: I personally reviewed and interpreted this EKG as follows: Prior EKG tracings: available for review EKG Rhythm Intrepretation: Sinus Rhythm Imagaing Radiology Impression Chest X-Ray 07/27/23 20:10 IMPRESSION: Bibasilar airspace disease. Left lower lobe nodular density. Differential considerations include infectious, inflammatory, neoplastic etiologies. Recommend follow-up nonemergent CT chest. Electronically Signed: Keshawn Loving MD at 21:11 EST , Assessment & Plan Assessment/Plan (1) Non-ST elevated myocardial infarction: PLAN: Asymptomatic at this time. Patient has some weakness several days ago. Unclear if this may have been related with the heart attack at this time. Patient has had prior coronary intervention performed by Dr. Smith at [facility]. Patient was inquiring if he would need to have a CABG while he was here. I told him that he certainly would not want to have a CABG. I told him that we are able to perform heart catheterizations in our institution and if the patient had a complex anatomy or did require bypass surgery then he would need to be transferred. It was seen that the patient's preference would be [facility] as he has had much of his work done there that becomes necessary. He is comfortable remaining here to have a cardiac catheterization and possible stent if indicated at our institution. Will continue with his home medications of aspirin, atorvastatin and clear ticagrelor. Consult cardiology. Check echocardiogram. (2) Tinea pedis: PLAN: Likely source of his cellulitis of his right lower extremity. Unfortunately do not have in our formulary terbinafine or butenafine topical ointments. Will give the patient one-time dose of fluconazole 150 mg. Can be continued weekly for the next 2 to 4 weeks. (3) Cellulitis of right leg: PLAN: Patient was recently prescribed antibiotic. Will continue with the doxycycline for now. PLAN: Plan Diabetes mellitus type 2: [id number]. Continue with metformin. Sliding scale insulin. Hypertension: Continue lisinopril, hydrochlorothiazide Hyperlipidemia: Continue statin VTE prophylaxis not indicated as patient is already anticoagulated with heparin drip. Charges/Coding Visit Charges Inpatient E&M: 93569 Init Hosp L3
[2023-07-27 22:33] VITALS: BP 126/92; PULSE 92; RESP 18; O2SAT 94
[2023-07-27] MEDS: Ondansetron 4 MG/2 ML Vial IV (22:45)
[2023-07-27] MEDS: Morphine 4 MG/ML Syringe IV (22:45)
--- NOTE | 2023-07-27 23:52 | ECHOCS_ITS ---
Version 2 Reason For Study: NSTEMI Procedure This was a 2D Doppler, Color Flow transthoracic echocardiogram. The study was technically difficult. D/T BODY HABITUS. Contrast injection was performed. Exam performed portable in patient room. S/P HEART CATHERIZATION. Left Ventricle Normal LV size. Mild concentric left ventricular hypertrophy. The estimated ejection fraction is 50 %. Left ventricular systolic function is lower limits of normal. Stage 1 diastolic dysfunction. No regional wall motion abnormalities noted. Right Ventricle Normal RV size. Normal systolic function. Atria The left atrium is not well visualized. The right atrium is not well visualized. Mitral Valve There is mild to moderate mitral annular calcification. Tricuspid Valve The tricuspid valve is not well visualized. Aortic Valve The aortic valve is not well visualized. Pulmonic Valve The pulmonic valve is not well visualized. Great Vessels Normal aortic root. Pericardium/Pleural No pericardial effusion. Medication Diluted definity 3.0ml given slow IV push to enhance endocardial definition. MMode/2D Measurements & Calculations LVIDd: 6.1 cm IVSd: 1.3 cm Ao root diam: 3.4 cm LVIDs: 4.7 cm LVPWd: 1.3 cm RVDd: 3.8 cm FS: 24.2 % LAV(MOD-bp): 112.0 ml LVAd ap4: 38.7 cm2 LVAd ap2: 28.5 cm2 LAV(MOD-bp) Indexed: 43.4 ml/m2 LVLd ap4: 8.4 cm LVLd ap2: 8.6 cm LAV(MOD-sp2): 112.3 ml EDV(MOD-sp4): 147.5 ml EDV(MOD-sp2): 85.9 ml LAV(MOD-sp4): 112.8 ml EDV(sp4-el): 151.4 ml EDV(sp2-el): 80.4 ml LVAs ap4: 26.6 cm2 LVAs ap2: 20.5 cm2 LVLs ap4: 7.1 cm LVLs ap2: 7.1 cm ESV(MOD-sp4): 84.3 ml ESV(MOD-sp2): 50.3 ml ESV(sp4-el): 84.9 ml ESV(sp2-el): 50.0 ml EF(MOD-sp4): 42.8 % EF(MOD-sp2): 41.4 % EF(sp4-el): 43.9 % SV(MOD-sp4): 63.2 ml SV(MOD-sp2): 35.6 ml SV(sp4-el): 66.5 ml LA A4 area: 29.4 cm2 LA dimension(2D): 4.9 cm TAPSE: 2.5 cm Time Measurements MV dec time: 0.20 sec Doppler Measurements & Calculations MV E max felipe: 94.9 cm/sec Lat Peak E' Felipe: 6.9 cm/sec Med Peak E' Felipe: 6.9 cm/sec MV A max felipe: 112.2 cm/sec E/E' lat: 13.7 E/E' med: 13.8 MV E/A: 0.85 MV V2 max: 133.1 cm/sec MV P1/2t max felipe: 111.7 cm/sec Ao V2 max: 205.0 cm/sec MV max P.1 mmHg MV P1/2t: 67.6 msec Ao max P.8 mmHg MV V2 mean: 86.2 cm/sec Ao V2 mean: 151.6 cm/sec MV mean P.3 mmHg MV dec slope: 484.3 cm/sec2 Ao mean P.2 mmHg MV V2 VTI: 29.1 cm MVA(P1/2t): 3.3 cm2 Ao V2 VTI: 46.5 cm AV (velocity ratio): 0.39 LV V1 max: 81.5 cm/sec PA V2 max: 67.7 cm/sec LV V1 max P.7 mmHg PA V2 mean: 52.4 cm/sec LV V1 mean P.5 mmHg LV V1 mean: 57.8 cm/sec LV V1 VTI: 18.0 cm ECHO/Echo Complete W/ Contrast Interpretation Summary Normal LV size. Mild concentric left ventricular hypertrophy. The estimated ejection fraction is 50 %. Left ventricular systolic function is lower limits of normal. Stage 1 diastolic dysfunction. Contrast injection was performed. Ordering Physician: Reinaldo Jackson Referring Physician: Pete Perez Performed By: Hannah Sharma RDCS, RVT
--- NOTE | 2023-07-27 23:52 | EKG12_ITS ---
Test Reason : CP ADMIT Blood Pressure : / mmHG Vent. Rate : 086 BPM Atrial Rate : 086 BPM P-R Int : 172 ms QRS Dur : 112 ms QT Int : 402 ms P-R-T Axes : 028 032 037 degrees QTc Int : 481 ms Normal sinus rhythm Possible Left atrial enlargement Nonspecific ST abnormality Prolonged QT Abnormal ECG When compared with ECG of 27-JUL-2023 19:14, MANUAL COMPARISON REQUIRED, DATA IS UNCONFIRMED Confirmed by NATHAN LI, HEBER ([id number]), editor sound PK MOSQUEDA ([id number]) on 07/28/2023 1:20:47 PM Referred By: KOREY Confirmed By:HEBER EVANS MD
[2023-07-27 23:57] LABS: Troponin-I HS 5197 pg/mL (3.0-78.0)
[2023-07-28] VITALS (12 sets, daily range): BP systolic 106–217; BP diastolic 45–97; PULSE 72–89; RESP 16–18; TEMP 36–36.7; O2SAT 94–100; BMI 42.2
[2023-07-28] MEDS: FLUCONAZOLE 150 MG TABLET PO (00:18)
[2023-07-28 03:25] LABS: Absolute Lymphocyte Count 1.86 X10^3/uL (0.83-4.51); Absolute Neutrophil Count 4.1 X10^3/uL (2.0-7.7); Basophil# 0.06 X10^3/uL; Basophil% 0.9 % (0-1); Eosinophil# 0.19 X10^3/uL; Eosinophils% 2.7 % (0-5); Hematocrit 40.2 % (40-54); Hemoglobin 13.1 g/dL (13.0-16.5); Lymphocyte # 1.86 X10^3/ul (0.83-4.51); Lymphocyte % 26.8 % (19-41); Mean Corp Hgb Conc 32.6 g/dL (32-36); Mean Corpuscular Hgb 28.9 pg (27.0-32.0); Mean Corpuscular Volume 88.5 fL (80-94); Mean Platelet Vol. 9.7 fl (6.2-12.0); Monocyte# 0.59 X10^3/uL; Monocyte% 8.5 % (0-10); NRBC Flagged by Analyzer 0 % (0-5); Neutrophil % 59.1 % (47-70); Platelet Count 173 K/mm3 (150-450); RBC Distribution Width CV 13.3 % (11.6-14.6); Red Blood Count 4.54 M/mm3 (4.6-6.2); White Blood Count 6.9 K/mm3 (4.4-11.0)
[2023-07-28 03:34] LABS: Partial Thromboplast Time 34.9 Seconds (24.1-36.2)
[2023-07-28 03:41] LABS: Anion Gap 12 (5-15); BUN 48 mg/dL (7-18); BUN/Creat Ratio 22.9 RATIO (10-20); Calcium,Total 8.3 mg/dL (8.5-10.1); Chloride 96 mmol/L (98-107); EST Glomerular Filtration Rate 34 mL/min (>60); Est Glom Filt Rate - Afr Amer 41 mL/min (>60); Estimated Creatinine Clearance 37.98 ml/min; Glucose 416 mg/dL (74-106); Potassium 4.8 mmol/L (3.5-5.1); Sodium Level 132 mmol/L (136-145)
[2023-07-28 03:54] LABS: Troponin-I HS 3964 pg/mL (3.0-78.0)
[2023-07-28] MEDS: Aspirin 81 MG TAB.CHEW PO (04:43)
[2023-07-28] MEDS: Metoprolol(XL)Succ 50 MG Tablet PO (04:43)
[2023-07-28] MEDS: dexAMETHasone 4 MG Tablet 6 MG PO (04:43)
[2023-07-28] MEDS: TICAGRELOR 90 MG TABLET PO ×2 (04:44→19:49)
[2023-07-28] MEDS: Doxycycline 100 MG CAPSULE PO (04:44)
[2023-07-28] MEDS: Fenofibrate 145 MG Tablet PO (04:44)
[2023-07-28] MEDS: Lisinopril 20 MG Tablet PO (04:44)
[2023-07-28] MEDS: Heparin Injection (Vial) 5,000 UNIT/ML VIAL IV (05:12)
[2023-07-28 05:15] LABS: Bedside Glucose 379 mg/dL (74-106)
--- NOTE | 2023-07-28 07:38 | PCM.CONS.C ---
Assessment & Plan Assessment/Plan (1) Non-ST elevated myocardial infarction: PLAN: He has a non-ST elevation myocardial infarction. With his risk factors with previous coronary disease, diabetes mellitus, renal insufficiency I would recommend that we perform a limited cardiac catheterization without left ventriculogram. Depending on the findings further recommendations will be made. The risk benefits and alternatives have been explained to him he understands and agrees to proceed. Adequate hydration will be undertaken. Addendum: Cardiac catheterization demonstrated severe triple-vessel disease. Echocardiogram is pending. At this juncture it appears that the patient will be referred for coronary artery bypass surgery electively after his leg infection is completely cured. I discussed this with him and his . Thank you for allowing me to participate in the care of your patient. Please don't hesitate to call if any issues arise. HPI Consult Data Date of Consult: 07/28/23 HPI Narrative HPI Narrative: MEGAN CLEARY, is a 67 M who presents because of abnormal lab findings. Last week, patient just felt very weak was having difficulty getting out of the bed noted that his arms are weak as well. The symptoms did improve but is also noted that he developed an infection on his right leg. Saw his primary care doctor yesterday and received a prescription for an antibiotic and also had some lab work done including troponin. The lab work came back with an abnormal troponin though patient had denied any chest pain or shortness of breath or paroxysmal nocturnal dyspnea or pedal edema. He was seen in the emergency room his EKG did not demonstrate any changes but his troponin dontrell up to over 4000. He was admitted with a consult to cardiology. He does have a history of known coronary artery disease with previous stenting remotely. [facility] Medical History (Updated 07/28/23 @ 08:[address] Rachel Duran MD) CAD (coronary artery disease) Diabetes mellitus, type 2 High cholesterol HTN (hypertension) Morbid obesity Non-ST elevated myocardial infarction Stage 3b chronic kidney disease Home Medications aspirin 81 mg tablet 81 mg PO DAILY heart health 04/14/21 [History Last Taken Unknown] atorvastatin 80 mg tablet 80 mg PO DAILY cholesterol 04/14/21 [History Last Taken Unknown] fenofibrate 160 mg tablet 160 mg PO DAILY triglycerides 04/14/21 [History Last Taken Unknown] hydrochlorothiazide 12.5 mg tablet 12.5 mg PO DAILY diuretic 04/14/21 [History Last Taken Unknown] metoprolol succinate 50 mg tablet,extended release 24 hr 50 mg PO DAILY blood pressure 04/14/21 [History Last Taken Unknown] ramipril 10 mg capsule 10 mg PO DAILY blood pressure 04/14/21 [History Last Taken Unknown] spironolactone 25 mg tablet 25 mg PO DAILY diuretic 04/14/21 [History Last Taken Unknown] ticagrelor 90 mg tablet (Brilinta) 90 mg PO BID anti platelet 04/14/21 [History Last Taken Unknown] dexamethasone 6 mg tablet 6 mg PO DAILY #2 tabs 04/22/21 [Rx Last Taken Unknown] needle (disp) #500 ea 04/22/21 [Rx Last Taken Unknown] lisinopril 20 mg tablet 20 mg PO .once a day 07/27/23 [History Last Taken Unknown] metformin 1,000 mg tablet 1,000 mg PO BID 07/27/23 [History Last Taken Unknown] nitroglycerin 0.4 mg sublingual tablet 0.4 mg sublingual Q5M PRN chest pain 07/27/23 [History Last Taken Unknown] Allergy/AdvReac Type Severity Reaction Status Date / Time No Known Allergies Allergy Verified 07/27/23 19:06 Family History Other CAD (coronary artery disease) Surgical History Stented coronary artery Social History Smoking Status: Never smoker ROS Constitutional Constitutional: Denies fever(s) or weight loss Eyes Eyes: Reports systems reviewed and no addt'l complaints, except as documented ENT HEENT: Reports systems reviewed and no addt'l complaints, except as documented Cardiovascular Cardiovascular: Denies chest pain at rest, chest pain with activity, dyspnea at rest, dyspnea on exertion, edema, palpitations or paroxysmal nocturnal dyspnea Respiratory/Chest Respiratory/Chest: Denies dyspnea on exertion, productive cough, shortness of breath at rest or shortness of breath with exertion Gastrointestinal Gastrointestinal: Denies change in bowel habits, nausea, vomiting or weight changes Genitourinary Genitourinary: Denies difficulty urinating Musculoskeletal Musculoskeletal: Denies joint stiffness or muscle weakness Integumentary Integumentary: Denies lesions Neurologic Neurologic: Denies dizziness or syncope Psychiatric Psychiatric: Denies anxiety Endocrine Endocrinology: Denies excessive sweating or fatigue Hematologic/Lymphatic Hematologic/Lymphatic: Denies anemia Allergic/Immunologic Allergic/Immunologic: Denies seasonal rhinorrhea Physical Exam Const alert, oriented x3 and no apparent distress General Appearance: cooperative HEENT hearing grossly normal bilaterally Head and Scalp: atraumatic Eyes EOMs intact bilaterally Neck General: normal visual inspection Chest inspection of chest normal and palpation of chest normal Resp normal respiratory effort Auscultation: clear to auscultation bilaterally Cardio regular rate, regular rhythm, S1 normal heart sound and S2 normal heart sound Jugular Venous Distention: JVD GI normal to inspection, nondistended, normoactive bowel sounds Extremity normal capillary refill Extremity Narrative: Both extremities noted to be reddened suggestive of cellulitis. Peripheral Pulses: Yes pulses 2+ throughout and femoral pulses present Skin no rashes or lesions noted Neuro oriented x3 and CN's II-XII intact bilaterally Psych Appearance: grossly normal and appropriate Risk Stratification Risk Stratification Applicable: Yes Age >/= 65: Yes >/= 3 CAD Risk Factors (HTN, HLD, DM, family hx of CAD, or current smoker): Yes Aspirin Use in the Past 7 Days: No Severe Angina (>/= episodes in 24 hours): No EKG ST Changes >/= 0.5mm: No Positive Cardiac Marker: Yes TAMEKA Risk Stratification Score: 3 TAMEKA % Risk: 13% Risk Objective Data Vital Signs: Vital Signs Temp Pulse Resp BP Pulse Ox O2 Del Method 96.8 F L 83 16 138/77 H 98 Room Air 07/28/23 00:27 07/28/23 04:43 07/28/23 00:27 07/28/23 00:27 07/28/23 00:27 07/28/23 00:27 Oxygen Delivery Method Room Air Weight: 311 lb 1.156 oz Body Mass Index (BMI) 42.2 Intake & Output: Intake and Output for Last 24 Hours 07/26/23 07/27/23 07/28/23 23:59 23:59 23:59 Intake Total 74.33 / 74.33 Balance 74.33 / 74.33 Lab / Micro Data 07/28/23 02:48 07/28/23 02:48 Labs: Laboratory Results - last 24 hr 07/27/23 20:20: WBC 8.0, RBC 4.98, Hgb 14.1, Hct 42.3, MCV 84.9, MCH 28.3, MCHC 33.3, RDW Std Deviation 41.3, RDW Coeff of Amaya 13.2, Plt Count 208, MPV 9.7, Immature Gran % (Auto) 1.600 H, Neut % (Auto) 66.7, Lymph % (Auto) 20.7, [place] % (Auto) 8.8, Eos % (Auto) 1.6, Baso % (Auto) 0.6, Absolute Neuts (auto) 5.3, Absolute Lymphs (auto) 1.65, Nucleated RBC % 0, PT 12.8, INR 1.0, Sodium 127 L, Potassium 4.5, Chloride 97 L, Carbon Dioxide 20.0 L, Anion Gap 10, BUN 49 H, Creatinine 2.05 H, Estim Creat Clear Calc 38.91, Est GFR (MDRD) Af Amer 42 L, Est GFR (MDRD) Non-Af 35 L, BUN/Creatinine Ratio 23.9 H, Glucose 404 H, Calcium 9.2, Troponin I High Sens 4790 H* 07/27/23 23:00: Troponin I High Sens 5197 H* 07/28/23 02:48: WBC 6.9, RBC 4.54 L, Hgb 13.1, Hct 40.2, MCV 88.5, MCH 28.9, MCHC 32.6, RDW Std Deviation 43.0, RDW Coeff of Amaya 13.3, Plt Count 173, MPV 9.7, Immature Gran % (Auto) 2.000 H, Neut % (Auto) 59.1, Lymph % (Auto) 26.8, Reeves % (Auto) 8.5, Eos % (Auto) 2.7, Baso % (Auto) 0.9, Absolute Neuts (auto) 4.1, Absolute Lymphs (auto) 1.86, Nucleated RBC % 0, APTT 34.9, Sodium 132 L, Potassium 4.8, Chloride 96 L, Carbon Dioxide 24.0, Anion Gap 12, BUN 48 H, Creatinine 2.10 H, Estim Creat Clear Calc 37.98, Est GFR (MDRD) Af Amer 41 L, Est GFR (MDRD) Non-Af 34 L, BUN/Creatinine Ratio 22.9 H, Glucose 416 H, Calcium 8.3 L, Troponin I High Sens 3964 H* 07/28/23 04:42: POC Glucose 379 H Rhythm Strip Rhythm Strip: Sinus Rhythm Rate: 94 Ectopy: None Cardiology Labs/Tests 07/27/23 20:20: WBC 8.0, RBC 4.98, Hgb 14.1, Hct 42.3, MCV 84.9, MCH 28.3, MCHC 33.3, Plt Count 208, MPV 9.7, Immature Gran % (Auto) 1.600 H, Neut % (Auto) 66.7, Lymph % (Auto) 20.7, Reeves % (Auto) 8.8, Eos % (Auto) 1.6, Baso % (Auto) 0.6, Absolute Neuts (auto) 5.3, Nucleated RBC % 0, PT 12.8, INR 1.0, Sodium 127 L, Potassium 4.5, Chloride 97 L, Carbon Dioxide 20.0 L, Anion Gap 10, BUN 49 H, Creatinine 2.05 H, Est GFR (MDRD) Af Amer 42 L, Est GFR (MDRD) Non-Af 35 L, BUN/Creatinine Ratio 23.9 H, Glucose 404 H, Calcium 9.2 07/28/23 02:48: WBC 6.9, RBC 4.54 L, Hgb 13.1, Hct 40.2, MCV 88.5, MCH 28.9, MCHC 32.6, Plt Count 173, MPV 9.7, Immature Gran % (Auto) 2.000 H, Neut % (Auto) 59.1, Lymph % (Auto) 26.8, Reeves % (Auto) 8.5, Eos % (Auto) 2.7, Baso % (Auto) 0.9, Absolute Neuts (auto) 4.1, Nucleated RBC % 0, APTT 34.9, Sodium 132 L, Potassium 4.8, Chloride 96 L, Carbon Dioxide 24.0, Anion Gap 12, BUN 48 H, Creatinine 2.10 H, Est GFR (MDRD) Af Amer 41 L, Est GFR (MDRD) Non-Af 34 L, BUN/Creatinine Ratio 22.9 H, Glucose 416 H, Calcium 8.3 L Rhythm: EKG: ECHO: Stress Test: Cardiac Cath: PCI: CT Surgery: Holter monitor: EPS: PPM: CXR: Chest CT Scan: Radiography Diagnostic Testing: Radiology Impression Chest X-Ray 07/27/23 20:10 IMPRESSION: Bibasilar airspace disease. Left lower lobe nodular density. Differential considerations include infectious, inflammatory, neoplastic etiologies. Recommend follow-up nonemergent CT chest. Electronically Signed: Keshawn Loving MD at 21:11 EST ,
[2023-07-28] MEDS: 0.9% Normal Saline (1000mL) 1,000 ML 15 ML IV (08:09)
--- NOTE | 2023-07-28 08:44 | PCM.PN.HOSP ---
Reason for Visit Reason for Visit: Diagnoses Tinea pedis (07/27/23) Non-ST elevation (NSTEMI) myocardial infarction (07/27/23) Cellulitis of right lower limb (07/27/23) Subjective Subjective Patient denies chest pain or shortness of breath, still reports his right lower extremity is somewhat painful and erythematous. Objective Data Objective Data Vital Signs: Vital Signs Temp Pulse Resp BP Pulse Ox O2 Del Method 97.7 F L 84 16 140/97 H 100 Room Air 07/28/23 08:00 07/28/23 08:00 07/28/23 08:00 07/28/23 08:00 07/28/23 08:00 07/28/23 08:00 Oxygen Delivery Method Room Air Weight: 141.1 kg Body Mass Index (BMI) 42.2 Intake & Output: Intake and Output for Last 24 Hours 07/26/23 07/27/23 07/28/23 23:59 23:59 23:59 Intake Total 101.53 / 101.53 Balance 101.53 / 101.53 Lab / Micro Data 07/28/23 02:48 07/28/23 02:48 Labs: Laboratory Results - last 24 hr 07/27/23 20:20: WBC 8.0, RBC 4.98, Hgb 14.1, Hct 42.3, MCV 84.9, MCH 28.3, MCHC 33.3, RDW Std Deviation 41.3, RDW Coeff of Amaya 13.2, Plt Count 208, MPV 9.7, Immature Gran % (Auto) 1.600 H, Neut % (Auto) 66.7, Lymph % (Auto) 20.7, [place] % (Auto) 8.8, Eos % (Auto) 1.6, Baso % (Auto) 0.6, Absolute Neuts (auto) 5.3, Absolute Lymphs (auto) 1.65, Nucleated RBC % 0, PT 12.8, INR 1.0, Sodium 127 L, Potassium 4.5, Chloride 97 L, Carbon Dioxide 20.0 L, Anion Gap 10, BUN 49 H, Creatinine 2.05 H, Estim Creat Clear Calc 38.91, Est GFR (MDRD) Af Amer 42 L, Est GFR (MDRD) Non-Af 35 L, BUN/Creatinine Ratio 23.9 H, Glucose 404 H, Calcium 9.2, Troponin I High Sens 4790 H* 07/27/23 23:00: Troponin I High Sens 5197 H* 07/28/23 02:48: WBC 6.9, RBC 4.54 L, Hgb 13.1, Hct 40.2, MCV 88.5, MCH 28.9, MCHC 32.6, RDW Std Deviation 43.0, RDW Coeff of Amaya 13.3, Plt Count 173, MPV 9.7, Immature Gran % (Auto) 2.000 H, Neut % (Auto) 59.1, Lymph % (Auto) 26.8, [place] % (Auto) 8.5, Eos % (Auto) 2.7, Baso % (Auto) 0.9, Absolute Neuts (auto) 4.1, Absolute Lymphs (auto) 1.86, Nucleated RBC % 0, APTT 34.9, Sodium 132 L, Potassium 4.8, Chloride 96 L, Carbon Dioxide 24.0, Anion Gap 12, BUN 48 H, Creatinine 2.10 H, Estim Creat Clear Calc 37.98, Est GFR (MDRD) Af Amer 41 L, Est GFR (MDRD) Non-Af 34 L, BUN/Creatinine Ratio 22.9 H, Glucose 416 H, Calcium 8.3 L, Troponin I High Sens 3964 H* 07/28/23 04:42: POC Glucose 379 H Radiography Diagnostic Testing: Radiology Impression Chest X-Ray 07/27/23 20:10 IMPRESSION: Bibasilar airspace disease. Left lower lobe nodular density. Differential considerations include infectious, inflammatory, neoplastic etiologies. Recommend follow-up nonemergent CT chest. Electronically Signed: Keshawn Loving MD at 21:11 EST , Rhythm Strip Rhythm Strip: Sinus Rhythm Rate: 94 Ectopy: None Physical Exam Narrative General: Alert, oriented, no apparent distress HEENT: Atraumatic, normocephalic Eyes: Anicteric, normal conjunctiva, extraocular movements grossly intact Neck: Supple Respiratory: Clear to auscultation bilaterally, normal respiratory effort Cardiovascular: Regular rate and rhythm GI: Soft, nontender, nondistended Extremities: Right lower extremity erythema and 1+ edema Musculoskeletal: Moving all extremities Neuro: No overt focal neurological deficits Skin: No rashes appreciated Psych: Cooperative Assessment & Plan Assessment/Plan (1) Elevated troponin: (2) Tinea pedis: (3) Cellulitis of right leg: PLAN: Plan #Elevated Troponin w/ hx CAD and triple-vessel disease -Found incidentally to be 3000's on outpt basis -Peaked at 5197 and downtrended to 3964 -No chest pain or SOB at this time -Was placed on heparin drip and had heart cath with cardiology which shows severe triple-vessel disease -Patient will likely need CABG but given his active infection and lack of cardiac symptoms this can likely be done on an outpatient basis after optimized -Continue aspirin, statin, Brilinta, beta-nhung -Echo pending #Right lower extremity cellulitis -Was started on Doxy as outpatient however on evaluation feel patient warrants at least 24 hours of IV antibiotics -Given his diabetes we will start Zosyn, also obtain MRSA surveillance -We will obtain right lower extremity duplex as well -Patient on IV fluids -We will check ESR and CRP as well #Type 2 diabetes mellitus -Glucose checks and sliding scale insulin -Holding metformin -We will check A1c -Dexamethasone was on home med list however it appears it was for 2 days back in 2020 so this has been stopped, anticipate this may be helpful for patient's glucose now that this is discontinued #CKD stage IIIb -Appears to be at or close to baseline, did have heart cath today so we will continue IV fluids at this time -Awaiting echo #Chronic hyponatremia -Unclear etiology but patient is on hydrochlorothiazide -We will hold hydrochlorothiazide #Hypertension -Holding hydrochlorothiazide due to hyponatremia -Optimize other medications #DVT ppx: Has been on heparin drip Rachel Duran MD Time spent in the patient's overall evaluation,decision-making process, review of diagnostic data, adjustment of management, discussion with other providers, nursing nursing and ancillary staff involved in patient's care documentation, 35 Minutes Charges/Coding Visit Charges Inpatient E&M: 15988 Subs Hosp L2
--- NOTE | 2023-07-28 08:45 | VDLE_ITS ---
Reason For Study: RLE Pain RIGHT LEFT GSV is normal. CFV is compressible, spontaneous, phasic, CFV is compressible, spontaneous, phasic, competent, and demonstrates normal competent and demonstrates normal augmentation. augmentation. FV is compressible, spontaneous, phasic, competent and demonstrates normal augmentation. POP V is compressible, spontaneous, phasic, competent and demonstrates normal augmentation. T/P Trunk is compressible. PTV is compressible. RT PerV is compressible. Procedure This is a venous duplex using B-mode, color flow and spectral Doppler. Exam performed portable in patient room. The exam was diagnostic. A preliminary report was called and/or faxed to PCU trauma program manager. VL/Venous Duplex US, Unilateral Interpretation Summary There is no evidence of right lower extremity deep vein thrombosis. Normal flow patterns left common femoral vein Ordering Physician: Rachel Duran Referring Physician: Pete Perez Performed By: Srini Holm RVT
--- NOTE | 2023-07-28 08:45 | CASEMGMT ---
Tertiary facilities in-network with patient's insurance: [facility], [facility], [facility]ina Burch, , [facility], [facility], [facility], [facility] Moscoso
[2023-07-28] MEDS: 0.9% Normal Saline (1000mL) 1,000 ML 150 ML IV (09:00)
--- NOTE | 2023-07-28 09:00 | CL.D_ITS ---
Patient Name: MEGAN CLEARY Study Date: 07/28/2023 Performing: Luc Goodman MD Ht: 72 inches 182.88 cm : 1955 Wt: 311.07 lbs 141.1 kg Age: 67 Gender: male BSA: 2.57 PROCEDURE(S) PERFORMED [id number])[facility] CLINICAL PROFILE AND INDICATIONS Indications: Other Heart Failure: None Stress/Imaging Stress/Image Study Performed: No CAD Presentations: Non-STEMI. Symptom onset Date/Time: 07/27/23 Time Not Available CONCLUSIONS Severe triple-vessel disease involving previously stented vessels in the LAD, left circumflex artery, right coronary artery all with in-stent stenosis. RECOMMENDATIONS Surgery consult for coronary revascularization DESCRIPTION OF PROCEDURE The patient arrived to the procedure lab. The risks and benefits of the procedure as well as a full description of our services here and current unavailability of surgical backup were fully explained to the patient and/or their significant other prior to the catheterization. The Timeout was completed, verifying the correct patient and procedure. The patient's procedural site was prepped and draped in the usual fashion. Local anesthetic was given subcutaneously to right radial region with Lidocaine 2%. Using a modified Seldinger technique, arterial access was obtained via the right radial artery, a 6Fr sheath was inserted. Left Coronary Artery selective angiography was performed in multiple views using a 5 Fr. 4.0 Cresco catheter. Right Coronary Artery selective angiography was then performed in multiple views using a 5 Fr. 4.0 Cresco catheter.The arterial sheath was pulled and a TR Band was applied for hemostasis w/ 10ml air CORONARY ANGIOGRAPHY DOMINANCE: Right Dominant LEFT HEART ASSESSMENT LV wall motion not assessed LEFT MAIN: Mild calcification LEFT ANTERIOR DESCENDING ARTERY: Proximal LAD with long 50 to 60% stenosis followed by a previous area of stenting with a long 80% in-stent stenosis in the first diagonal vessel which was previously stented and is noted to be occluded with a distal diagonal filling via ghost collaterals. CIRCUMFLEX ARTERY: Proximal circumflex with previous stent with mild disease and a first obtuse marginal branch which is large with a proximal 90% in-stent stenosis, AV groove branch with mid 70% stenosis, second obtuse marginal branch with mild diffuse disease in distal left to right collaterals. RIGHT CORONARY ARTERY: Previously stented vessel is noted to be totally occluded proximally with a conus branch filling an acute marginal branch. Distal right coronary artery is noted. The lateral filling via collaterals. COLLATERAL FLOW: Collateral flow from Left to Left Collateral flow from Left to Right COMPLICATIONS No Complications PROCEDURE MEDICATIONS Versed 1 mg IV Fentanyl 50 mcg IV Oxygen: 2 L/min via nasal cannula Heparin given IA 07/28/2023 08:25:00 Verapamil 2.5mg, Ntg 100mcgs, 3000 units of Heparin given IA 07/28/2023 08:25:00 SUMMARY OF HEMODYNAMIC DATA Time AIR REST ECG 08:10:32 Art 111/67 (83) 08:25:46 AO 105/70 (87) SA 08:36:33 AIR REST 08:56:09 Signed By Luc Goodman MD On 07/28/2023 08:59:06 Luc Goodman MD
[2023-07-28] MEDS: Spironolactone 25 MG Tablet PO (10:08)
[2023-07-28] MEDS: Insulin Lispro 100 UNIT/ML INSULN.PEN SC ×3 (10:16→19:50)
[2023-07-28] MEDS: Piperacil/Tazobactam 4.5 GM in 0.9% Normal Saline (100mL MB+) 100 ML IV (10:20)
[2023-07-28 10:43] LABS: Erythrocyte Sedimentation Rate 49 mm/hr (0-20)
[2023-07-28 10:44] LABS: Bedside Glucose 414 mg/dL (74-106)
[2023-07-28 12:32] LABS: M R Staph aureus DNA By PCR Negative (Negative); Probe Check PASS; Specimen Processing Control PASS; Staph aureus DNA By PCR NEGATIVE (Negative)
[2023-07-28] MEDS: Piperacil/Tazobactam 3.375 GM in 0.9% Normal Saline (50mL MB+) 50 ML IV ×2 (14:06→19:48)
[2023-07-28] MEDS: oxyCODONE 5 MG Tablet PO (14:12)
--- NOTE | 2023-07-28 16:15 | CASEMGMT ---
RN CM Face to Face with patient for initial transition planning/care coordination assessment. RN CM introduced self and role at [facility]. Patient sitting in chair, alert and oriented. Patient willing to participate in assessment and is able to answer all questions appropriately. Care providers, pharmacy, and demographics verified. Patient wishes to discharge home, denies need for home health at this time. Patient states he has no further needs or concerns at this time. CM to follow for discharge planning needs that may arise. PCP: Chris Specialists: Phuong Buck Training Specialist Preferred Pharmacy: [facility] Insurance: [employer] Prescription Benefit: yes Living Will/HPOA: yes, Laura Harding LNOK: Living Arrangements: Patient lives with in a 3 story home. Patient is independent and able to ambulate stairs. Transportation: slef, DME/HHC: Patient has shower chair, raised toilet, cane, crutches, and walker at home. Patient would benefit from Glucometer at discharge. No previous HHC or SNF Disposition Plan: Patient to discharge home with family support and follow-up plans in place. Tasia YEH, RN, CM
[2023-07-28 16:39] LABS: Bedside Glucose > 500 mg/dL (74-106)
[2023-07-28 17:24] LABS: Glucose 602 mg/dL (74-106)
[2023-07-28 19:10] LABS: Bedside Glucose 478 mg/dL (74-106)
[2023-07-28] MEDS: Insulin Glargine-YFGN 100 UNIT/ML Pen SC (19:22)
[2023-07-28] MEDS: Atorvastatin Calcium 80 MG Tablet PO (19:49)
[2023-07-29] MEDS: oxyCODONE 5 MG Tablet PO ×2 (00:50→12:25)
[2023-07-29 04:27] VITALS: BP 121/74; PULSE 71; RESP 16; TEMP 36.1; O2SAT 96
[2023-07-29] MEDS: Insulin Lispro 100 UNIT/ML INSULN.PEN SC ×2 (05:47→11:49)
[2023-07-29] MEDS: Piperacil/Tazobactam 3.375 GM in 0.9% Normal Saline (50mL MB+) 50 ML IV (05:47)
[2023-07-29 06:00] LABS: Bedside Glucose 380 mg/dL (74-106)
--- NOTE | 2023-07-29 06:50 | PCM.PN.CARD ---
Subjective Subjective Patient seen and evaluated. Appears to be doing well. Objective Data Vital Signs: Vital Signs Temp Pulse Resp BP Pulse Ox O2 Del Method 97 F L 71 16 121/74 H 96 Room Air 07/29/23 04:27 07/29/23 04:27 07/29/23 04:27 07/29/23 04:27 07/29/23 04:27 07/29/23 04:27 Oxygen Delivery Method Room Air Weight: 311 lb 1.156 oz Body Mass Index (BMI) 42.2 Intake & Output: Intake and Output for Last 24 Hours 07/27/23 07/28/23 07/29/23 23:59 23:59 23:59 Intake Total 3482.50 / 3722.50 530 / 530 Balance 3482.50 / 3722.50 530 / 530 Lab / Micro Data 07/28/23 02:48 07/28/23 16:33 Labs: Laboratory Results - last 24 hr 07/28/23 02:48: ESR 49 H, C-React Prot Ext Range 111.00 H 07/28/23 10:07: POC Glucose 414 H 07/28/23 10:30: S.aureus Protein A PCR NEGATIVE, MRSA (PCR) Negative 07/28/23 16:17: POC Glucose > 500 H* 07/28/23 16:33: Glucose 602 H* 07/28/23 18:48: POC Glucose 478 H* 07/29/23 05:34: POC Glucose 380 H Rhythm Strip Rhythm Strip: Sinus Rhythm Rate: 94 Ectopy: None Cardiology Labs/Tests 07/28/23 16:33: Glucose 602 H* Rhythm: EKG: ECHO: Stress Test: Cardiac Cath: PCI: CT Surgery: Holter monitor: EPS: PPM: CXR: Chest CT Scan: Radiography Diagnostic Testing: Radiology Impression Echocardiogram 07/27/23 23:52 Interpretation Summary Normal LV size. Mild concentric left ventricular hypertrophy. The estimated ejection fraction is 50 %. Left ventricular systolic function is lower limits of normal. Stage 1 diastolic dysfunction. Contrast injection was performed. Ordering Physician: Reinaldo Jackson Referring Physician: Pete Perez Performed By: Hannah Sharma RDCS, RVT Venous Doppler Study 07/28/23 08:45 Interpretation Summary There is no evidence of right lower extremity deep vein thrombosis. Normal flow patterns left common femoral vein Ordering Physician: Rachel Duran Referring Physician: Pete Perez Performed By: Srini Holm, RVT Physical Exam Const alert, oriented x3 and no apparent distress General Appearance: cooperative HEENT hearing grossly normal bilaterally Head and Scalp: atraumatic Eyes EOMs intact bilaterally Neck General: normal visual inspection Chest inspection of chest normal and palpation of chest normal Resp normal respiratory effort Auscultation: clear to auscultation bilaterally Cardio regular rate, regular rhythm, S1 normal heart sound and S2 normal heart sound Jugular Venous Distention: JVD GI normal to inspection, nondistended, normoactive bowel sounds Extremity normal capillary refill Extremity Narrative: Both extremities noted to be reddened suggestive of cellulitis. Peripheral Pulses: Yes pulses 2+ throughout and femoral pulses present Skin no rashes or lesions noted Neuro oriented x3 and CN's II-XII intact bilaterally Psych Appearance: grossly normal and appropriate Assessment & Plan Assessment/Plan (1) Non-ST elevated myocardial infarction: PLAN: He has a non-ST elevation myocardial infarction. Cardiac catheterization demonstrated severe triple-vessel disease. His echocardiogram demonstrated low normal ejection fraction. He appears to be stable. My recommendation be to continue him on the current medical therapy without the ticagrelor. He can be discharged for outpatient follow-up to see the surgeon so that outpatient coronary bypass surgery can be scheduled. He prefers to go to [facility] and his papers will be sent there and they will contact him. In the meantime his leg infection will be treated. Thank you for allowing me to participate in the care of your patient. Please don't hesitate to call if any issues arise.
[2023-07-29 07:26] VITALS: O2SAT 97
[2023-07-29 08:46] LABS: Erythrocyte Sedimentation Rate 83 mm/hr (0-20)
[2023-07-29 08:48] LABS: Absolute Lymphocyte Count 1.68 X10^3/uL (0.83-4.51); Basophil# 0.06 X10^3/uL; Basophil% 0.7 % (0-1); Eosinophil# 0.07 X10^3/uL; Eosinophils% 0.8 % (0-5); Hematocrit 41.6 % (40-54); Hemoglobin 13.7 g/dL (13.0-16.5); Lymphocyte # 1.68 X10^3/ul (0.83-4.51); Mean Corp Hgb Conc 32.9 g/dL (32-36); Mean Corpuscular Hgb 29.2 pg (27.0-32.0); Mean Corpuscular Volume 88.7 fL (80-94); Mean Platelet Vol. 9.4 fl (6.2-12.0); Monocyte# 0.71 X10^3/uL; NRBC Flagged by Analyzer 0 % (0-5); Neutrophil # 6.03 X10^3/uL (2.7-7.7); Neutrophil % 68.1 % (47-70); Platelet Count 200 K/mm3 (150-450); RBC Distribution Width CV 13.5 % (11.6-14.6); RBC Distribution Width SD 44.1 fl (35.1-43.9); Red Blood Count 4.69 M/mm3 (4.6-6.2); White Blood Count 8.9 K/mm3 (4.4-11.0)
[2023-07-29 09:16] LABS: Anion Gap 9 (5-15); BUN 45 mg/dL (7-18); BUN/Creat Ratio 23.4 RATIO (10-20); Calcium,Total 8.7 mg/dL (8.5-10.1); Chloride 100 mmol/L (98-107); Creatinine, Serum 1.92 mg/dL (0.70-1.30); EST Glomerular Filtration Rate 37 mL/min (>60); Est Glom Filt Rate - Afr Amer 45 mL/min (>60); Estimated Creatinine Clearance 41.54 ml/min; Glucose 353 mg/dL (74-106); Potassium 4.1 mmol/L (3.5-5.1); Sodium Level 130 mmol/L (136-145)
[2023-07-29 10:38] VITALS: BP 104/72; PULSE 76; RESP 16; TEMP 36; O2SAT 97
[2023-07-29 10:40] LABS: Hemoglobin A1c 13.6 % (3.8-5.6)
[2023-07-29] MEDS: Aspirin 81 MG TAB.CHEW PO (10:40)
[2023-07-29] MEDS: Lisinopril 20 MG Tablet PO (10:41)
[2023-07-29] MEDS: Spironolactone 25 MG Tablet PO (10:41)
[2023-07-29] MEDS: Fenofibrate 145 MG Tablet PO (10:41)
[2023-07-29] MEDS: Insulin Glargine-YFGN 100 UNIT/ML Pen 10 UNIT SC (11:47)
[2023-07-29] MEDS: Acetaminophen 325 MG Tablet 650 MG PO (12:25)
[2023-07-29 12:38] LABS: Bedside Glucose 399 mg/dL (74-106)
--- NOTE | 2023-07-29 13:49 | DCINST_ITS ---
Discharge Instructions Diet Discharge Diet: Carb Control Diet Activity Discharge Activity: - (Elevate feet) Follow Up Care Test Results: Test results from this visit will be discussed in further detail at your follow- up appointment, if applicable. Discharge Plan Admission Admit Date/Time: 07/27/23 22:20 Primary Reason for Your Visit: Weakness and elevated troponin Attending Provider: Rachel Duran Primary Care Provider: Pete Perez Consulting Providers: Luc Goodman; Reinaldo Jackson Instructions Patient Instructions: DASH Plan Eat Heart Healthy Food, Insulin and Type 2 Diabetes, ED Heart Disease Risk Factors, ED Using an Injection Pen Additional Instructions / Restrictions: DISCHARGE INSTRUCTIONS PLEASE READ *Please take this with you to your next doctors appointment* -You will be discharged on 10 days of Augmentin 875 mg twice daily. It is also advised you elevate your feet when possible -You will continue aspirin but hold home Brilinta while awaiting your surgery evaluation as continuing this medication could potentially delay surgery -You will be discharged on 15 units of long-acting insulin which you will need to use daily and short acting insulin with meals. Check your glucose daily and with meals. If your glucose continues to be elevated over 200 please call your primary care physician for further adjustments -Sliding scale as follows: 150-199 = 3 units 200-259 = 6 units 260-324 = 9 units 325-374 = 12 units 375-409 = 14 units 410-449 = 16 units Greater than 449 please call your physician -You will need to follow-up with cardiology upon discharge, please call the office of Dr. Goodman upon discharge to schedule your hospital follow-up appointment (ph [phone]). In regards to surgery evaluation a referral has been sent to a heart surgeon and you will be contacted for further scheduling and information, if you are not contacted within several business days you can call the cardiology office to inquire about referral -You have had both ramipril and lisinopril on your home medication list, you should only take 1 of these, we will continue lisinopril at 10 mg to avoid low blood pressure your hydrochlorothiazide was held for this reason as well -Please call your primary care provider's office upon discharge to schedule a hospital follow up within 1 week. -For any concerning signs or symptoms please call 911 or proceed to the nearest emergency department Discharge Orders/Prescriptions Prescriptions: New insulin glargine-yfgn 100 unit/mL (3 mL) Insulin Pen 15 unit subcut DAILY Qty: 15 0RF insulin lispro [Humalog KwikPen Insulin] 100 unit/mL Insulin Pen See Protocol subcut ACHS Qty: 15 0RF Protocol: 5. Sliding Scale Insulin High Dosing Condition: 150-209 mg/dl = 3 units Condition: 210-259 mg/dl = 6 units Condition: 260-324 mg/dl = 9 units Condition: 325-374 mg/dl = 12 units Condition: 375-409 mg/dl = 14 units Condition: 410-449 mg/dl = 16 units Condition: Greater than 449 call physician Protocol Text: - Use for Total Daily Dose of Insulin 81-120 units - Very insulin resistant or septic patients HIGH DOSING ALGORITHM Rx Instructions: Max units 50 daily amoxicillin-pot clavulanate 875-125 mg tablet 1 tab PO BID 10 Days Qty: 20 0RF (DME) pen needle, diabetic [BD Ultra-Fine Short Pen Needle] 31 gauge x 5/16 needle See Rx Instructions .Route Qty: 100 3RF Rx Instructions: As directed Continued atorvastatin 80 mg Tablet 80 mg PO DAILY metoprolol succinate 50 mg Tablet Extended Release 24 Hr 50 mg PO DAILY spironolactone 25 mg Tablet 25 mg PO DAILY aspirin 81 mg Tablet 81 mg PO DAILY fenofibrate 160 mg Tablet 160 mg PO DAILY (DME) needle (disp) Needle See Rx Instructions .ROUTE .MEDSUPPLY Qty: 500 0RF Rx Instructions: As directed nitroglycerin 0.4 mg tablet, sublingual 0.4 mg sublingual Q5M PRN (Reason: chest pain) Patient Comments: PLEASE SEE ATTACHED FOR DETAILED DIRECTIONS Changed lisinopril 20 mg tablet 10 mg PO DAILY 30 Days Qty: 0 0RF Held metformin 1,000 mg tablet 1,000 mg PO BID Hold Instructions: Resume on 07/30/23. Patient Comments: TAKE 1 TABLET BY MOUTH TWICE A DAY Discontinued ramipril 10 mg Capsule 10 mg PO DAILY hydrochlorothiazide 12.5 mg Tablet 12.5 mg PO DAILY Brilinta 90 mg Tablet 90 mg PO BID dexamethasone 6 mg tablet 6 mg PO DAILY Qty: 2 0RF Referrals / Follow Up: Luc Goodman MD [Med Staff - Active Staff] - (You will need to follow-up with cardiology upon discharge, please call the office of Dr. Maxine upon discharge to schedule your hospital follow-up appointment ( [phone]). In regards to surgery evaluation a referral has been sent to a heart surgeon and you will be contacted for further scheduling and information, if you are not contacted within several business days you can call the cardiology office to inquire about referral) Pete Perez MD [Primary Care Provider] - Within 1 Week Disposition Disposition (needs filled in before D/C Order can be placed): Home, Self Care
--- NOTE | 2023-07-29 14:15 | DS.PCM_ITS ---
Providers Date of Admission: 07/27/23 Date of Discharge: 07/29/23 Primary Care Physician: Dr. Pete Perez MD Consultations 07/27/23 23:52 Consult: Cardiology Routine Consulting Provider: Luc Goodman Reason for Consult: NSTEMI EMERGENT Consult: No MD Notified: Yes Date Notified: 07/27/23 Time Notified: 22:30 Method of Notification: Text Reason For Visit: NSTEMI Diagnosis Discharge Diagnosis (1) Elevated troponin: Status: Acute Code(s): R79.89 - Other specified abnormal findings of blood chemistry (2) Chronic kidney insufficiency: Status: Chronic Code(s): N18.9 - Chronic kidney disease, unspecified (3) Hyponatremia: Status: Acute Code(s): E87.1 - Hypo-osmolality and hyponatremia (4) Hyperglycemia due to diabetes mellitus: Status: Acute Code(s): E11.65 - Type 2 diabetes mellitus with hyperglycemia (5) Hx of heart artery stent: Status: Acute Code(s): Z95.5 - Presence of coronary angioplasty implant and graft (6) History of coronary artery disease: Status: Acute Code(s): Z86.79 - Personal history of other diseases of the circulatory system Plan #Elevated troponin 2/2 demand from underlying illness w/ hx CAD and triple- vessel disease #Hx CAD w/ stenting and active triple vessel dz #Right lower extremity cellulitis #Type 2 diabetes mellitus #CKD stage IIIb #Chronic hyponatremia #Hypertension #Morbid obesity Medications at Discharge Home Medications aspirin 81 mg tablet 81 mg PO DAILY heart health 04/14/21 atorvastatin 80 mg tablet 80 mg PO DAILY cholesterol 04/14/21 fenofibrate 160 mg tablet 160 mg PO DAILY triglycerides 04/14/21 metoprolol succinate 50 mg tablet,extended release 24 hr 50 mg PO DAILY blood pressure 04/14/21 spironolactone 25 mg tablet 25 mg PO DAILY diuretic 04/14/21 needle (disp) #500 ea 04/22/21 metformin 1,000 mg tablet 1,000 mg PO BID 07/27/23 nitroglycerin 0.4 mg sublingual tablet 0.4 mg sublingual Q5M PRN chest pain 07/27/23 amoxicillin 875 mg-potassium clavulanate 125 mg tablet 1 tab PO BID 10 days #20 tabs 07/29/23 insulin glargine-yfgn 100 unit/mL (3 mL) subcutaneous pen 15 unit (0.15 mL) subcut DAILY #15 mL 07/29/23 insulin lispro 100 unit/mL subcutaneous pen (Humalog KwikPen (U-100) Insulin) Se e Protocol subcut ACHS #15 mL 07/29/23 lisinopril 20 mg tablet 10 mg (1/2 x 20 mg) PO DAILY 30 days #0 tabs 07/29/23 pen needle, diabetic 31 gauge x 5/16 (BD Ultra-Fine Short Pen Needle) #100 ea 07/29/23 Hospital Course Procedures Cardiac catheterization and Transthoracic echo Summary of Care Provided Minutes Spent on Discharge: 35 Hospital Course: 67-year-old male history of hypertension, diabetes, coronary artery disease, CKD, morbid obesity who presented to [facility] 07/27/2023 at the urging of his PCP due to abnormal labs. The week prior he had been feeling very weak all over and symptoms did not improve and he also developed right leg infection so he saw his primary care physician and was prescribed doxycycline and broad lab work-up including troponin. Troponin came back greater than 3000 and he was advised to go to the emergency room. Subsequent troponin was 4790 and he was started on heparin drip and hospitalist contacted for admission. Patient taken to [facility] and was found to have severe triple-vessel disease w ith recommendation for CABG evaluation however given acute infection and lack of cardiac symptoms it was felt this could be done on a close but outpatient basis after patient better medically optimized. He was given IV antibiotics and CRP down trended and patient significantly clinically improved from a cellulitis perspective. Was found to have a hemoglobin A1c of greater than 13 and also required insulin to be started and titrated. Overall patient did well and was anxious to go home and follow-up with heart surgeon for outpatient evaluation. On day of discharge patient reports feeling much better and feels his legs are also doing much better, discharged home in stable condition with the following discharge instructions: -You will be discharged on 10 days of Augmentin 875 mg twice daily. It is also advised you elevate your feet when possible -You will continue aspirin but hold home Brilinta while awaiting your surgery evaluation as continuing this medication could potentially delay surgery -You will be discharged on 15 units of long-acting insulin which you will need to use daily and short acting insulin with meals. Check your glucose daily and with meals. If your glucose continues to be elevated over 200 please call your primary care physician for further adjustments -Sliding scale as follows: 150-199 = 3 units 200-259 = 6 units 260-324 = 9 units 325-374 = 12 units 375-409 = 14 units 410-449 = 16 units Greater than 449 please call your physician -You will need to follow-up with cardiology upon discharge, please call the office of Dr. Goodman upon discharge to schedule your hospital follow-up appointment ). In regards to surgery evaluation a referral has been sent to a heart surgeon and you will be contacted for further scheduling and information, if you are not contacted within several business days you can call the cardiology office to inquire about referral -You have had both ramipril and lisinopril on your home medication list, you s hould only take 1 of these, we will continue lisinopril at 10 mg to avoid low blood pressure your hydrochlorothiazide was held for this reason as well -Please call your primary care provider's office upon discharge to schedule a hospital follow up within 1 week. -For any concerning signs or symptoms please call 911 or proceed to the nearest emergency department Physical Exam Narrative General: Alert, oriented, no apparent distress HEENT: Atraumatic, normocephalic Eyes: Anicteric, normal conjunctiva, extraocular movements grossly intact Neck: Supple Respiratory: Clear to auscultation bilaterally, normal respiratory effort Cardiovascular: Regular rate and rhythm GI: Soft, nontender, nondistended Extremities: Edema in legs improving Musculoskeletal: Moving all extremities Neuro: No overt focal neurological deficits Skin: Right lower extremity edema significantly improving Psych: Cooperative Weight / BMI Weight Weight: 141.1 kg Body Mass Index (BMI) 42.2 ABG / Lab / Microbiology Data 07/29/23 07:40 07/29/23 07:40 Laboratory: Laboratory Results - last 24 hr 07/28/23 16:17: POC Glucose > 500 H* 07/28/23 16:33: Glucose 602 H* 07/28/23 18:48: POC Glucose 478 H* 07/29/23 05:34: POC Glucose 380 H 07/29/23 07:40: WBC 8.9, RBC 4.69, Hgb 13.7, Hct 41.6, MCV 88.7, MCH 29.2, MCHC 32.9, RDW Std Deviation 44.1 H, RDW Coeff of Amaya 13.5, Plt Count 200, MPV 9.4, Immature Gran % (Auto) 3.400 H, Neut % (Auto) 68.1, Lymph % (Auto) 19.0, [place] % (Auto) 8.0, Eos % (Auto) 0.8, Baso % (Auto) 0.7, Absolute Neuts (auto) 6.0, Absolute Lymphs (auto) 1.68, Nucleated RBC % 0, ESR 83 H, Sodium 130 L, Potassium 4.1, Chloride 100, Carbon Dioxide 21.0, Anion Gap 9, BUN 45 H, Creatinine 1.92 H, Estim Creat Clear Calc 41.54, Est GFR (MDRD) Af Amer 45 L, Est GFR (MDRD) Non-Af 37 L, BUN/Creatinine Ratio 23.4 H, Glucose 353 H, Hemogl obin A1c 13.6 H, Calcium 8.7, C-React Prot Ext Range 59.40 H 07/29/23 11:46: POC Glucose 399 H Radiography Diagnostic Testing: Radiology Impression Echocardiogram 07/27/23 23:52 Interpretation Summary Normal LV size. Mild concentric left ventricular hypertrophy. The estimated ejection fraction is 50 %. Left ventricular systolic function is lower limits of normal. Stage 1 diastolic dysfunction. Contrast injection was performed. Ordering Physician: Reinaldo Jackson Referring Physician: Pete Perez Performed By: Hannah Sharma, JOEL, RVT D/C Instructions Discharge Diet: Carb Control Diet Meaningful Use Info Meaningful Use Diagnoses (Choose all that apply): None applicable Discharge Plan Admission Admit Date/Time: 07/27/23 22:20 Primary Reason for Your Visit: Weakness and elevated troponin Attending Provider: Rachel Duran Primary Care Provider: Pete Perez Consulting Providers: Luc Goodman; Reinaldo Jackson Instructions Patient Instructions: DASH Plan Eat Heart Healthy Food, Insulin and Type 2 Diabetes, ED Heart Disease Risk Factors, ED Using an Injection Pen Additional Instructions / Restrictions: DISCHARGE INSTRUCTIONS PLEASE READ *Please take this with you to your next doctors appointment* -You will be discharged on 10 days of Augmentin 875 mg twice daily. It is also advised you elevate your feet when possible -You will continue aspirin but hold home Brilinta while awaiting your surgery evaluation as continuing this medication could potentially delay surgery -You will be discharged on 15 units of long-acting insulin which you will need to use daily and short acting insulin with meals. Check your glucose daily and with meals. If your glucose continues to be elevated over 200 please call your primary care physician for further adjustments -Sliding scale as follows: 150-199 = 3 units 200-259 = 6 units 260-324 = 9 units 325-374 = 12 units 375-409 = 14 units 410-449 = 16 units Greater than 449 please call your physician -You will need to follow-up with cardiology upon discharge, please call the office of Dr. Goodman upon discharge to schedule your hospital follow-up appoint ment ( [phone]). In regards to surgery evaluation a referral has been sent to a heart surgeon and you will be contacted for further scheduling and information, if you are not contacted within several business days you can call the cardiology office to inquire about referral -You have had both ramipril and lisinopril on your home medication list, you should only take 1 of these, we will continue lisinopril at 10 mg to avoid low blood pressure your hydrochlorothiazide was held for this reason as well -Please call your primary care provider's office upon discharge to schedule a hospital follow up within 1 week. -For any concerning signs or symptoms please call 911 or proceed to the nearest emergency department Discharge Orders/Prescriptions Prescriptions: New insulin glargine-yfgn 100 unit/mL (3 mL) Insulin Pen 15 unit subcut DAILY Qty: 15 0RF insulin lispro [Humalog KwikPen Insulin] 100 unit/mL Insulin Pen See Protocol subcut ACHS Qty: 15 0RF Protocol: 5. Sliding Scale Insulin High Dosing Condition: 150-209 mg/dl = 3 units Condition: 210-259 mg/dl = 6 units Condition: 260-324 mg/dl = 9 units Condition: 325-374 mg/dl = 12 units Condition: 375-409 mg/dl = 14 units Condition: 410-449 mg/dl = 16 units Condition: Greater than 449 call physician Protocol Text: - Use for Total Daily Dose of Insulin 81-120 units - Very insulin resistant or septic patients HIGH DOSING ALGORITHM Rx Instructions: Max units 50 daily amoxicillin-pot clavulanate 875-125 mg tablet 1 tab PO BID 10 Days Qty: 20 0RF (DME) pen needle, diabetic [BD Ultra-Fine Short Pen Needle] 31 gauge x 5/16 needle See Rx Instructions .Route Qty: 100 3RF Rx Instructions: As directed Continued atorvastatin 80 mg Tablet 80 mg PO DAILY metoprolol succinate 50 mg Tablet Extended Release 24 Hr 50 mg PO DAILY spironolactone 25 mg Tablet 25 mg PO DAILY aspirin 81 mg Tablet 81 mg PO DAILY fenofibrate 160 mg Tablet 160 mg PO DAILY (DME) needle (disp) Needle See Rx Instructions .ROUTE .MEDSUPPLY Qty: 500 0RF Rx Instructions: As directed nitroglycerin 0.4 mg tablet, sublingual 0.4 mg sublingual Q5M PRN (Reason: chest pain) Patient Comments: PLEASE SEE ATTACHED FOR DETAILED DIRECTIONS Changed lisinopril 20 mg tablet 10 mg PO DAILY 30 Days Qty: 0 0RF Held metformin 1,000 mg tablet 1,000 mg PO BID Hold Instructions: Resume on 07/30/23. Patient Comments: TAKE 1 TABLET BY MOUTH TWICE A DAY Discontinued ramipril 10 mg Capsule 10 mg PO DAILY hydrochlorothiazide 12.5 mg Tablet 12.5 mg PO DAILY Brilinta 90 mg Tablet 90 mg PO BID dexamethasone 6 mg tablet 6 mg PO DAILY Qty: 2 0RF Referrals / Follow Up: Luc Goodman MD [Med Staff - Active Staff] - (You will need to follow-up with cardiology upon discharge, please call the office of Dr. Goodman upon discharge to schedule your hospital follow-up appointment (ph [phone]). In regards to surgery evaluation a referral has been sent to a heart surgeon and you will be contacted for further scheduling and information, if you are not contacted within several business days you can call the cardiology office to inquire about referral) Pete Perez MD [Primary Care Provider] - Within 1 Week Disposition Disposition (needs filled in before D/C Order can be placed): Home, Self Care Charges/Coding Visit Charges Inpatient E&M: 26348 Disch Hosp >30min
[2023-07-29 14:28] VITALS: BP 95/58; PULSE 86; RESP 16; TEMP 36.4; O2SAT 98
--- NOTE | 2023-07-29 15:07 | CASEMGMT ---
Patient has order to discharge. RN CM in to discuss discharge needs with patient. Patient denies needs at discharge. Glucometer script received and provided in discharge paper work, julianne updated. Patient had no further questions or concerns at this time.
--- NOTE | 2023-07-29 17:07 | PHA.DC.MC.R ---
Pharmacy [facility] Pharmacy Service has performed discharge medication reconciliation and counseling for this patient. 1. AUGMENTIN 875/125MG 1 TABLET PO BID X 10 DAYS 2. INSULIN GLARGINE 15UNITS SC DAILY 3. INSULIN LISPRO PER PROTOCOL The patient's discharge medication list was reviewed for discrepancies and discrepancies were resolved. The patient was counseled on the following discharge medications and changes in medications for homegoing were reviewed. The Reason for Use, instructions for use, and potential side effects were reviewed for all new medications. The patient's questions regarding all of their medications were answered. The patient was able to verbally demonstrate an understanding of their discharge medications. Patient counseled by student support counselorPerry. Medications at Discharge Home Medications aspirin 81 mg tablet 81 mg PO DAILY heart health 04/14/21 atorvastatin 80 mg tablet 80 mg PO DAILY cholesterol 04/14/21 fenofibrate 160 mg tablet 160 mg PO DAILY triglycerides 04/14/21 metoprolol succinate 50 mg tablet,extended release 24 hr 50 mg PO DAILY blood pressure 04/14/21 spironolactone 25 mg tablet 25 mg PO DAILY diuretic 04/14/21 needle (disp) #500 ea 04/22/21 metformin 1,000 mg tablet 1,000 mg PO BID 07/27/23 nitroglycerin 0.4 mg sublingual tablet 0.4 mg sublingual Q5M PRN chest pain 07/27/23 amoxicillin 875 mg-potassium clavulanate 125 mg tablet 1 tab PO BID 10 days #20 tabs 07/29/23 insulin glargine-yfgn 100 unit/mL (3 mL) subcutaneous pen 15 unit (0.15 mL) subcut DAILY #15 mL 07/29/23 insulin lispro 100 unit/mL subcutaneous pen (Humalog KwikPen (U-100) Insulin) See Protocol subcut ACHS #15 mL 07/29/23 lisinopril 20 mg tablet 10 mg (1/2 x 20 mg) PO DAILY 30 days #0 tabs 07/29/23 pen needle, diabetic 31 gauge x 5/16 (BD Ultra-Fine Short Pen Needle) #100 ea 07/29/23
== END 2023-07-29 16:28 | disposition home or self-care (01) | DRG 287 ==
LOC: ED 20:43 → PCU 22:33
PROVIDERS: Emergency Provider Emergency Medicine; PCP Family Medicine; Visit Provider Internal Medicine
DX: I25.10 Atherosclerotic heart disease of native coronary artery without angina pectoris (principal); T82.855A Stenosis of coronary artery stent, initial encounter; E87.1 Hypo-osmolality and hyponatremia; L03.115 Cellulitis of right lower limb; Z68.41 Body mass index [BMI] 40.0-44.9, adult; B35.3 Tinea pedis; E11.22 Type 2 diabetes mellitus with diabetic chronic kidney disease; N18.32 Chronic kidney disease, stage 3b; E11.65 Type 2 diabetes mellitus with hyperglycemia; E66.01 Morbid (severe) obesity due to excess calories; Z79.4 Long term (current) use of insulin; I12.9 Hypertensive chronic kidney disease with stage 1 through stage 4 chronic kidney disease, or unspecified chronic kidney disease; E78.00 Pure hypercholesterolemia, unspecified; R79.89 Other specified abnormal findings of blood chemistry; Y71.2 Prosthetic and other implants, materials and accessory cardiovascular devices associated with adverse incidents; Z79.02 Long term (current) use of antithrombotics/antiplatelets; Z79.82 Long term (current) use of aspirin; Z79.84 Long term (current) use of oral hypoglycemic drugs; Z79.899 Other long term (current) drug therapy; Z95.5 Presence of coronary angioplasty implant and graft
CPT/HCPCS: 36415; 71045; 80048; 82947; 82962; 83036; 84484; 85025; 85610; 85652; 85730; 86140; 87640; 93005; 93306; 93454; 93971; 99152; 99153; 99285; J7030; Q9957; Q9967; A4216; C1769; C1894; C8929; J2405

== ENCOUNTER → 2023-07-27 | Outpatient (CLI) | payer BC, SELFPAY ==
[2023-07-27 17:45] LABS: Absolute Lymphocyte Count 1.05 X10^3/uL (0.83-4.51); Absolute Neutrophil Count 4.6 X10^3/uL (2.0-7.7); Basophil# 0.03 X10^3/uL; Basophil% 0.5 % (0-1); Eosinophil# 0.11 X10^3/uL; Eosinophils% 1.7 % (0-5); Hematocrit 42.9 % (40-54); Hemoglobin 13.9 g/dL (13.0-16.5); Lymphocyte # 1.05 X10^3/ul (0.83-4.51); Lymphocyte % 16.4 % (19-41); Mean Corp Hgb Conc 32.4 g/dL (32-36); Mean Corpuscular Hgb 28.5 pg (27.0-32.0); Mean Corpuscular Volume 87.9 fL (80-94); Mean Platelet Vol. 10.1 fl (6.2-12.0); Monocyte% 7.8 % (0-10); NRBC Flagged by Analyzer 0 % (0-5); Neutrophil # 4.64 X10^3/uL (2.7-7.7); Neutrophil % 72.4 % (47-70); Platelet Count 199 K/mm3 (150-450); RBC Distribution Width CV 13.2 % (11.6-14.6); RBC Distribution Width SD 42.8 fl (35.1-43.9); Red Blood Count 4.88 M/mm3 (4.6-6.2); White Blood Count 6.4 K/mm3 (4.4-11.0)
[2023-07-27 17:50] LABS: D-Dimer Quantitative (DVT/PE) 0.45 FEU/ug/m (0.27-0.49)
[2023-07-27 17:58] LABS: BNP,B-Type NATRIURETIC PEPTIDE 113.7 pg/mL (0-100)
[2023-07-27 18:35] LABS: Anion Gap 14 (5-15); BUN 46 mg/dL (7-18); BUN/Creat Ratio 22.3 RATIO (10-20); Calcium,Total 8.9 mg/dL (8.5-10.1); Chloride 95 mmol/L (98-107); Creatinine, Serum 2.06 mg/dL (0.70-1.30); EST Glomerular Filtration Rate 34 mL/min (>60); Est Glom Filt Rate - Afr Amer 42 mL/min (>60); Glucose 432 mg/dL (74-106); Potassium 4.6 mmol/L (3.5-5.1); Sodium Level 128 mmol/L (136-145); Troponin-I HS 3998 pg/mL (3.0-78.0)
[2023-07-28 13:18] LABS: AST(SGOT) 49 U/L (15-37); Alanine Aminotransfer ALT/SGPT 50 U/L (16-61); Alkaline Phosphatase 60 U/L (45-117); Bilirubin, Direct 0.13 mg/dL (0.00-0.30); Globulin 4.6 g/dL (2.2-4.2); Protein, Total 7.6 g/dL (6.4-8.2)
== END | disposition home or self-care (01) ==
LOC: MFPLAB 15:51
PROVIDERS: PCP Family Medicine; Visit Provider Family Medicine
DX: R60.0 Localized edema (principal); L03.90 Cellulitis, unspecified
CPT/HCPCS: 36415; 80048; 80076; 83880; 84484; 85025; 85379

== ENCOUNTER → 2023-08-13 | Outpatient (CLI) | payer BC, SELFPAY ==
--- NOTE | 2023-08-13 07:37 | VDLE_ITS ---
Reason For Study: Pre-OP RIGHT LEFT GSV Prox Thigh - 0.76cm x 0.77cm GSV Prox Thigh - 0.67cm x 0.77cm GSV Mid Thigh - 0.72cm x 0.73cm GSV Mid Thigh - 0.68cm x 0.76cm GSV Dist Thigh - 0.67cm x 0.68cm GSV Dist Thigh - 0.65cm x 0.74cm GSV Knee - 0.71cm x 0.70cm GSV Knee - 0.66cm x 0.62cm GSV Prox Calf - 0.56cm x 0.51cm GSV Prox Calf - 0.56cm x 0.54cm GSV Mid Calf - 0.25cm x 0.29cm GSV Mid Calf - 0.32cm x 0.42cm GSV Dist Calf - 0.36cm x 0.37cm GSV Dist Calf - 0.43cm x 0.46cm ASV Prox Calf - 0.20cm x 0.25cm ASV Prox Thigh - 0.41cm x 0.40cm ASV Mid Calf - 0.26cm x 0.26cm ASV Mid Thigh - 0.37cm x 0.31cm ASV Dist Thigh - 0.34cm x 0.34cm SSV Prox Calf - 0.18cm x 0.20cm SSV Mid Calf - 0.23cm x 0.27cm (vein wall SSV - multiple branches and varicosities thickening) throughout calf. SSV Dist Calf - 0.29cm x 0.30cm Unable to visualize large portions due to dry and mottled skin. GSV - ASV - SSV all appear compressible. Multiple branches noted throughout GSV and GSV - ASV - SSV all appear compressible. SSV. Multiple branches noted throughout GSV and Multiple Varicosities noted below the knee. SSV. Procedure Multiple Varicosities noted below the knee. This is a venous duplex using B-mode, color flow and spectral Doppler. Exam performed in department. The exam was diagnostic. VL/Saphenous Vein Mapping, Bilat Interpretation Summary Right great saphenous, accessory saphenous, and small saphenous vein patent wit h measurements above. Left great saphenous, accessory saphenous, and small saphenous vein patent with measurements above. Multiple branches and varicosities bilateral Ordering Physician: Reinaldo Diallo Referring Physician: Pete Perez Performed By: Srini Holm RVT
--- NOTE | 2023-08-13 07:37 | ART_ITS ---
Reason For Study: Pre-OP Procedure A bilateral upper extremity continuous wave Doppler with analog waveform analysis and segmental pressures. Left Segmental Pressures Left brachial= 118mmHg. Left radial= 154mmHg. Left ulnar= 161mmHg. Left digit = 126 mmHg. The left brachial waveforms are triphasic. The left radial waveforms are triphasic. The left ulnar waveforms are triphasic. Right Segmental Pressures Right brachial= 119mmHg. Right radial= 138mmHg. Right ulnar= 151mmHg. Right digit = 120 mmHg. The right brachial waveforms are triphasic. The right radial waveforms are triphasic. The right ulnar waveforms are triphasic. Indices The right wrist-brachial index is 1.27. The right digital-brachial index is 1.01. The left wrist- brachial index is 1.35. The left digital-brachial index is 1.06. VL/Upper Extremity Arterial Study Interpretation Summary Right wrist-brachial index 1.27, normal. Digit index, PVR and Doppler waveforms normal throughout. Left wrist-brachial index 1.35, normal. Digit index, PVR and Doppler waveforms normal throughout. Ordering Physician: Reinaldo Diallo Referring Physician: Pete Perez Performed By: Srini Holm, RVEliud
--- NOTE | 2023-08-13 07:37 | CDU_ITS ---
Reason For Study: Pre-Op / Neck Bruit Rt. Velocities/BP Lt. Velocities/BP Prox CCA 84.6/22.5 cm/sec. Prox CCA 96.1/30.3 cm/sec. Mid CCA 69.6/22.3 cm/sec. Mid CCA 81.5/24.8 cm/sec. Dist CCA 87.2/24.2 cm/sec. Dist CCA 79.8/19.3 cm/sec. Prox ICA 79.2/19.8 cm/sec. Prox ICA 111.3/35.1 cm/sec. Mid ICA 59.9/12.3 cm/sec. Mid ICA 77.1/32.7 cm/sec. Dist ICA 80.6/34.4 cm/sec. Dist ICA 65.8/27.0 cm/sec. Rt. ICA/CCA = 0.9. Lt. ICA/CCA = 1.4. Prox ECA 104.1/21.7 cm/sec. Prox ECA 150.1/23.1 cm/sec. Unable to visualize. Lt. Vert. 73.3/31.7 cm/sec. Right Extracranial There is homogeneous, smooth atherosclerotic plaque noted in the right common carotid artery. There is intimal thickening but no significant atherosclerotic plaque noted in the right internal carotid artery. There is homogeneous, smooth atherosclerotic plaque noted in the right external carotid artery. The right vertebral artery could not be visualized. Left Extracranial There is homogeneous, smooth atherosclerotic plaque noted in the left common carotid artery. There is heterogeneous, irregular atherosclerotic plaque noted in the left internal carotid artery. The atherosclerotic plaque causes acoustic shadowing. There is heterogeneous, irregular atherosclerotic plaque noted in the left external carotid artery. Antegrade flow is noted in the left vertebral artery. Procedure Carotid Duplex 33399. This is a Carotid Duplex examination using B-mode, color flow and specral Doppler. The exam was diagnostic. Exam performed in department. VL/Carotid Duplex Ultrasound Interpretation Summary Normal right extracranial internal carotid. Mild (<50%) stenosis left extracranial internal carotid. Some limitation due to calcific shadowing, alternative imaging may be beneficial. The right vertebral artery could not be visualized. The left vertebral is patent and antegrade. Ordering Physician: Reinadlo Diallo Referring Physician: Pete Perez Performed By: Srini Holm RVT
== END | disposition home or self-care (01) ==
LOC: CVS 07:34
PROVIDERS: PCP Family Medicine; Referring Provider Family Medicine; Visit Provider Thoracic Surgery (Cardiothoracic Vascular Surgery)
DX: Z01.818 Encounter for other preprocedural examination (principal); R09.89 Other specified symptoms and signs involving the circulatory and respiratory systems; I25.810 Atherosclerosis of coronary artery bypass graft(s) without angina pectoris; I35.0 Nonrheumatic aortic (valve) stenosis
CPT/HCPCS: 93880; 93923; 93970

== ENCOUNTER → 2023-09-12 | Outpatient (CLI) | payer BC, SELFPAY ==
--- OUTSIDE RECORDS SUMMARY | 2023-09-12 08:12 | XMS RPT_ITS | CCD ---
Author Name Unknown Address [facility] [address] [place] [address] Organization [facility] Care Team Providers Care Broadcast Systems Engineer Name Role Phone Pete Hutchison Primary Care Provider DIALLO, NERY Attending Unavailable DIALLO, NERY Admitting Unavailable HUTCHISON, PETE Primary Care Unavailable HUTCHISNO, PETE Primary Care Unavailable ROBI, JAVIER Referring Unavailable ROBI, JAVIER Attending Unavailable HUTCHISON, PETE Primary Care Unavailable ROBI, JAVIER Attending Unavailable DIALLO, NERY Attending Unavailable HUTCHISON, PETE Primary Care Unavailable ROBI, JAVIER Attending Unavailable HUTCHISON, PETE Primary Care Unavailable HUTCHISON, PETE Primary Care Unavailable CARO MALONEY Referring Unavailable RODRIGO MALONEYBETH Attending Unavailable HUTCHISON, PETE Primary Care Unavailable DIALLO, NERY Attending Unavailable HUTCHISON, PETE Primary Care Unavailable DIALLO, NERY Attending Unavailable YOLY PERLA Referring Unavailable HUTCHISON, PETE Primary Care Unavailable HUTCHISON, PETE Primary Care Unavailable DIALLO, NERY Referring Unavailable DIALLO, NERY Attending Unavailable Medications Current Medications Medication Drug Class(es) Dates Sig (Normalized) Sig (Original) acetaminophen 325 mg oral tablet (1 source) Start: 02-06-2020 acetaminophen (TYLENOL) tablet 650 mg aspirin 81 mg delayed release oral tablet (20 sources) Platelet Aggregation Inhibitor, Nonsteroidal Anti-inflammatory Drug Start: 03-19-2023 take 1 tablet by mouth once daily aspirin ([facility] Aspirin Low Dose) 81 MG EC tablet Indications: Atherosclerotic heart disease of [place] coronary artery without angina pectoris Take 1 tablet (81 mg) by mouth daily. 90 tablet 3 03/19/2023 Active Completed/Discontinued Medications Medication Drug Class(es) Dates Sig (Normalized) Sig (Original) clopidogrel 75 mg oral tablet (3 sources) P2Y12 Platelet Inhibitor Start: 9 End: 0 take 75 mg by mouth once daily 75 mg, Oral, DAILY, First dose on Thu02/06/20 at 1215 hydroCHLOROthiazide 12.5 mg oral capsule (20 sources) Thiazide Diuretic Start: 3 End: 3 take 1 capsule by mouth once daily hydroCHLOROthiazide (Microzide) 12.5 MG capsule Indications: Essential (primary) hypertension Take 1 capsule (12.5 mg) by mouth daily. 90 capsule 3 03/19/2023 08/04/2023 Discontinued (Discontinued by another clinician) Problems Active Problems Problem Classification Problem Date Documented Date Episodic/Chronic Complication of device; implant or graft (1 source) Arteriosclerosis of coronary artery bypass graft; Translations: [Atherosclerosis of coronary artery bypass graft(s) without angina pectoris] 09-01-2023 Chronic Congestive heart failure; nonhypertensive (20 sources) Chronic systolic heart failure; Translations: [Chronic systolic (congestive) heart failure] Onset: 02-23-2020 Chronic Coronary atherosclerosis and other heart disease (20 sources) Coronary arteriosclerosis; Translations: [Coronary atherosclerosis] Onset: 04-03-2017 04-03-2017 Chronic Coronary atherosclerosis and other heart disease (4 sources) Recurrent coronary arteriosclerosis after percutaneous transluminal coronary angioplasty; Translations: [Coronary angioplasty status] Onset: 02-06-2020 02-06-2020 Episodic Diabetes mellitus without complication (1 source) Type 2 diabetes mellitus; Translations: [Type 2 diabetes mellitus without complications] 03-24-2023 Chronic Disorders of lipid metabolism (20 sources) Hyperlipidemia; Translations: [Mixed hyperlipidemia] Onset: 04-03-2017 04-03-2017 Chronic Essential hypertension (20 sources) Hypertensive disorder; Translations: [Essential hypertension] Onset: 04-03-2017 04-03-2017 Chronic Other and ill-defined heart disease (20 sources) Heart disease; Translations: [Heart disease, unspecified] Onset: 02-06-2020 02-06-2020 Chronic Other nutritional; endocrine; and metabolic disorders (20 sources) Morbid obesity; Translations: [Morbid (severe) obesity due to excess calories] Onset: 02-23-2020 06-13-2022 Chronic Peripheral and visceral atherosclerosis (6 sources) 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; Translations: [Atherosclerosis of [place] arteries of extremities with intermittent claudication, other extremity] Onset: 09-02-2023 09-02-2023 Chronic Residual codes; unclassified (20 sources) Obstructive sleep apnea syndrome; Translations: [Obstructive sleep apnea (adult) (pediatric)] Onset: 02-23-2020 06-13-2022 Chronic Unclassified (2 sources) History of cardiac catheterization; Translations: [Status post left heart catheterization] Onset: 02-06-2020 02-06-2020 Unclassified (2 sources) New Patient; Translations: [New Patient] Onset: 08-04-2023 Past or Other Problems Problem Classification Problem Date Documented Date Episodic/Chronic Residual codes; unclassified (20 sources) History of cardiac catheterization; Translations: [Other specified postprocedural states] Onset: 02-06-2020 06-13-2022 Episodic Residual codes; unclassified (2 sources) Other specified postprocedural states; Translations: [Other specified postprocedural states] Onset: 06-13-2022 Episodic Results Test Name Value Interpretation Reference Range Facil ity Vital Signs Date Time Vital Sign Value Performing Clinician Faci lity 08-04-2023 12:05-0500 Body height 182.9 cm Javier Smith MD Work Phone: [facility] 08-04-2023 12:05-0500 Body mass index (BMI) [Ratio] 42.21 kg/m2 Javier Smith MD Work Phone: [facility] 08-04-2023 12:05-0500 Body weight 141.16 kg Javier Smith MD Work Phone: [facility] 08-04-2023 12:05-0500 Diastolic blood pressure 72 mm[Hg] Javier Smith MD Work Phone: [facility] 08-04-2023 12:05-0500 Heart rate 87 /min Javier Smith MD Work Phone: [facility] 08-04-2023 12:05-0500 SaO2% (BldA) [Mass fraction] 95 % Javier Smith MD Work Phone: [facility] 08-04-2023 12:05-0500 Systolic blood pressure 112 mm[Hg] Javier Smith MD Work Phone: [facility] 04-20-2023 10:07-0400 Body height 182.9 cm Javier Smith MD Work Phone: [facility] 04-20-2023 10:07-0400 Body mass index (BMI) [Ratio] 44.48 kg/m2 Javier Smith MD Work Phone: [facility] 04-20-2023 10:07-0400 Body weight 148.78 kg Javier Smith MD Work Phone: [facility] 04-20-2023 09:18-0400 Diastolic blood pressure 70 mm[Hg] Javier Smith MD Work Phone: [facility] 04-20-2023 09:18-0400 Heart rate 83 /min Javier Smith MD Work Phone: [facility] 04-20-2023 09:18-0400 Systolic blood pressure 121 mm[Hg] Javier Smith MD Work Phone: [facility] 02-07-2020 07:08-0400 Body Temperature 96.69 [degF] [facility] 02-07-2020 07:08-0400 BP Diastolic 75 mm[Hg] [facility] , [place] 02-07-2020 07:08-0400 BP Systolic 132 mm[Hg] [facility] , [place] 02-07-2020 07:08-0400 Pulse (Heart Rate) 64 /min [facility], [place] 02-07-2020 07:08-0400 Pulse Oximetry 95 % [facility] , [place] 02-07-2020 07:08-0400 Respiratory Rate 20 /min [facility] 02-06-2020 09:01-0400 BMI (Body Mass Index) 40.69 kg/m2 [facility] [place] [facility]-06-2020 09:01-0400 Body weight 136.08 kg [facility] , [place] 02-06-2020 09:01-0400 Height 182.9 cm [place], [place] Encounters Encounter Date Encounter Type Care Provider Facility Start: 09-08-2023 Evaluation and management of inpatient NERY DIALLO [facility] Start: 09-07-2023 End: 09-08-2023 ambulatory PETE HUTCHISON [facility] Start: 09-07-2023 End: 09-07-2023 Subsequent hospital visit by physician Nery Diallo MD Work Phone: [facility] Procedures Date Procedure Procedure Detail Performing Clinician Start: 09-07-2023 Non-invas physiologi c std extremity art 2 level Nery Diallo MD Work Phone: Start: 09-07-2023 Antibody screen NERY NIX ZORAN Plan of Treatment Date Care Activity Detail Author Start: 02-06-2025 Lipid panel Lipid Panel [facility] Start: 09-07-2024 Creatinine measurement Creatinine Le [facility] Start: 09-07-2024 Hemoglobin A1c measurement Diabetes: Hemoglobin A1C [facility] Start: 09-07-2024 Potassium measurement Potassium Leve l [facility] Start: 03-19-2024 Creatinine measurement Creatinine Le [facility] Start: 03-19-2024 Lipid panel Lipid Panel [facility] Start: 03-19-2024 Potassium measurement Potassium Leve l [facility] Start: 09-16-2023 End: 09-16-2023 Admission to same day surgery center 09/16/2023 7:00 AM EST - 09/16/2023 12:00 PM EST Surgery [facility] [address] [facility] [place] [facility] [place] [address] Nery Diallo MD [address] [place] [address], [address] [place] [address] CORONARY ARTERY BYPASS GRAFT, POSSIBLE RADIAL ARTERY, TRANSESOPHAGEAL ECHOCARDIOGRAM [33772 (CPT )] [facility] Immunizations Immunization Date Immunization Notes Care Provider Fa cility 06-20-2017 influenza virus vacc ine, unspecified formulation Javier Smith MD Work Phone: [facility] Payers Date Payer Category Payer Unknown DEVIKA ROBERTSON S DEVIKA GAN CROSS [id number] 2021-Present [address] [place] [address] Commercial [id number] 2021 Unknown [id number] 2016 Unknown BCBS [place] - [place] P PO xxxxxxxxxxxx 2016-Present [address] [place] [address] xxxxxxxxxxxx [id number] Social History Date Type Detail Facility Start: 05-23-2019 End: 02-03-2020 Tobacco smoking status NHIS Never smoker [facility] Start: 05-23-2019 End: 09-07-2023 Alcohol intake Yes [place], [place] Start: 1955 Sex Assigned At Not on file [place] Start: 02-03-2020 End: 09-07-2023 Alcohol intake Current drinker of alcohol (finding) [place] Exposure to SARS-CoV -2 (event) Unable to assess [place] Start: 03-19-2023 End: 09-07-2023 History of Social function [facility] Start: 03-09-2023 End: 04-20-2023 Exposure to SARS-CoV-2 (event) Not sure [facility] Start: 08-04-2023 Alcohol Comment occ [facility] Clinical Notes 12-22-2022 to 09-07-2023 Telephone Encounter - JOANA Monroy CNP - 09/02/2023 1:56 PM ESTTelephone Encounter - JOANA Monroy CNP - 09/02/2023 1:56 PM EST Note Date & Type Note Facility 09-07-2023 Note Patient: Aldo de anda Procedure Information Date/Time: 09/16/23 0700 Procedures: CORONARY ARTERY BYPASS GRAFT, POSSIBLE RADIAL ARTERY, TRANSESOPHAGEAL ECHOCARDIOGRAM (Chest) Echocardiography transesophageal real-time Location: [facility] OR Operating Room Surgeons: Nery Diallo MD Past Medical History: Past Medical History: No date: CAD (coronary artery disease) No date: Diabetes mellitus (HCC) No date: Hyperlipidemia No date: Hypertension No date: JOSÉ ANTONIO (obstructive sleep apnea) Past Surgical History: Past Surgical History: 07/2023: CARDIAC CATHETERIZATION Comment: guy 11/2014: CORONARY ANGIOPLASTY Comment: RACHID to prox LCx & SUBSTATION MECHANIC to mid RCA 08/2012: CORONARY ANGIOPLASTY Comment: RACHID to prox-mid 1st OM & mid RCA 07/2012: CORONARY ANGIOPLASTY Comment: RACHID to prox LAD 02/06/2020: CORONARY ANGIOPLASTY WITH STENT PLACEMENT; Left Comment: RACHID to Prox LAD, Mid LAD, Prox 1st Diagonal, prox LCx EF 65-70 Social History: TOBACCO: reports that he has never smoked. He has never used smokeless tobacco. ETOH: reports current alcohol use. Social History Substance and Sexual Activity Drug Use Never Family History: Family History Problem Relation Name Age of Onset ? Heart attack Mother Screening: unknown Clinical information reviewed: Tobacco Allergies Meds Med Hx Surg Hx Physical Exam Airway Mallampati: I TM distance: >3 FB Neck ROM: full Mouth Open: normalendotracheal tube not in place Cardiovascular Dental Comments: Left lower bridge Pulmonary Abdominal Anesthesia Plan Any family history or previous problems with anesthesia ASA 4 general The patient is not a current smoker. Blood Glucose Insulin Sliding Scale: medium JOSÉ ANTONIO Screening ALREADY DIAGNOSED WITH JOSÉ ANTONIO AND PATIENT IS NOT COMPLIANT WITH CPAP Labs: Lab Results Component Value Date WBC 7.0 02/07/2020 HGB 13.7 02/07/2020 MCV 85.5 02/07/2020 Lab Results Component Value Date NA 135 03/19/2023 K 5.6 (H) 03/19/2023 CL 101 03/19/2023 CO2 20 (L) 03/19/2023 BUN 51 (H) 03/19/2023 CREATININE 1.50 (H) 03/19/2023 GLUCOSE 287 (H) 03/19/2023 CALCIUM 9.6 03/19/2023 PROT 7.9 03/19/2023 ALKPHOS 56 03/19/2023 AST 28 03/19/2023 ALT 22 03/19/2023 EGFR 51.0 (L) 03/19/2023 Stress test 04/20/2023 changes identified, atttention anterolateral wall. Limited by artifact. ? Stress?Function: Left ventricular function post-stress is abnormal. Global function is mildly reduced. Post-stress ejection fraction is 47%. No wall motion abnormality seen. ? Stress?ECG: Conclusion: The Lexiscan stress EKG is negative for ischemia. ? Stress?Test: A pharmacological stress test was performed using regadenoson. Hemodynamics are adequate for diagnosis. Blood pressure demonstrated a normal response and heart rate demonstrated a normal response to stress. The patient's heart rate recovery was normal. The patient reported dyspnea and no chest pain during the stress test. echo completed on 07/28/23 that demonstrated an EF of 50% and some mild to moderate annular calcification, and all other valves were not well visualized. Patient had cardiac cath on 07/28/23 that showed severe triple vessel disease involving previously stented vessels in the LAD, left circumflex artery, right coronary artery all with in -stent stenosis 09/07/23 ECG 12-LEAD (Preliminary) This result has not been signed. Information might be incomplete. Impression Sinus rhythm Probable left atrial enlargement Consider anteroseptal infarct [facility] 09-07-2023 Note Comprehensive Pre Dyer rgical History and Physical ? Name: Aldo Cleary : 1955 (Age-67 y.o.) Date of Service: Pt seen/examined on 09/07/2023 Procedure Information Date/Time: 09/16/23 0700 Procedures: CORONARY ARTERY BYPASS GRAFT, POSSIBLE RADIAL ARTERY, TRANSESOPHAGEAL ECHOCARDIOGRAM (Chest) Echocardiography transesophageal real-time Location: [facility] OR Operating Room Surgeons: Nery Diallo MD Chief Complaint: Atherosclerotic heart disease of [place] coronary artery without angina pectoris [I25.10] ASSESSMENT/PLAN: Patient is considered high risk for this high risk procedure/surgery. 1) Atherosclerotic heart disease of [place] coronary artery without angina pectoris [I25.10] - Managed per surgery - Hx of stent placed 2011,2012,2014,2019 - Managed on aspirin, statin, Zetia, Triglide, metoprolol, lisinopril, {nitroglycerin PRN (used last week) - Patient instructed to continue aspirin uninterrupted. Discontinuation of aspirin in the presence of a coronary stent has been associated with nina-operative stent thrombosis, myocardial infarction and . Patient verbalized understanding. - Reports compliance to medication - Follows OP back end web developer - Ordered per PAT protocol - CBC, CMP, PT/INR & PTT, UA, T&S, T&C, MRSA, A1c, EKG, CXR - CHG shower kit - ADDENDUM 09/07/23: Lab results came back abnormal, including A1c and potassium, these were forwarded to Nathaniel Chew for further review and management 2) HTN - Lisinopril, metoprolol BP Readings from Last 3 Encounters: 09/07/23 137/85 08/04/23 (!) 143/75 08/04/23 112/72 3) CHF - Aldactone - 2019 echo The estimated ejection fraction is 50%. 4) IDDM - Metformin, Semglee Lab Results Component Value Date HGBA1C 6.2 05/14/2020 - BS less than 250 DOS per PAT protocol 5) JOSÉ ANTONIO - Noncompliant with mask 6) Morbid obesity - Body mass index is 43.41 kg/m?. 7) HLD - Statin, Zetia, Triglide Visit Type: Pre-Admission Testing Visit Labs Ordered: YES - PER PAT PROTOCOL Sleep Referral Ordered: NO - ALREADY DIAGNOSED WITH JOSÉ ANTONIO AND PATIENT IS NOT COMPLIANT WITH CPAP Total time spent (which include face to face and non face to face encounters) : 35 minutes Toxic drug monitoring/narrow therapeutic index drug monitoring : # Drug name : aldactone, metformin, lisinopril # Route administered : oral # Method of monitoring : cmp, a1c PAT Protocol referenced includes: 1. Anesthesia Lab Protocol Orders 2. Perioperative Cardiovascular Risk Assessment 3. Anesthesia Assessment 4. Pain Assessment and Acute Pain Service Consult (if appropriate) 5. Medical Clearance/Consult from Internal Medicine (IMS) 6. Shower/Wash Order (for designated surgeries) 7. JOSÉ ANTONIO Screen and Sleep Clinic Referral (if appropriate) History Of Present Illness: 67 y.o. male who we are asked to see/evaluate by Dr. Diallo for pre-operative evaluation prior to the above procedure. OV with Dr. Diallo on 08/04/23 Aldo Cleary is a 67 y.o. male referred by Dr. Goodman for multivessel disease. Per notes, patient saw Dr. Smith for his annual cardiology appointment. Patient was experiencing some SOB as well as some significant indigestion at night. Dr. Smith ordered a stress echo given his long history with coronary artery disease and previous stents. Patient completed his stress test on 04/20/23 that was negative for ischemia and Dr. Smith said there was no further testing or change in patient treatment at this time. patient saw his PCP after Thanksgiving because he was feeling weak, SOB and having heart burn. Patient had some labs drawn and his PCP sent him to the ER to be evaluated and admitted due to his troponin coming back at 3964 on 07/28/23. Patient has a history of CAD with stents on Brilinta and ASA, diabetic, and HTN. While admitted patient had an echo completed on 07/28/23 that demonstrated an EF of 50% and some mild to moderate annular calcification, and all other valves were not well visualized. Patient had cardiac cath on 07/28/23 that showed severe triple vessel disease involving previously stented vessels in the LAD, left circumflex artery, right coronary artery all with in -stent stenosis. It was recommended patient have a CABG but first take care of his infection. ? Denies history of TIA, CVA Past Medical History: Past Medical History: No date: CAD (coronary artery disease) No date: Diabetes mellitus (HCC) No date: Hyperlipidemia No date: Hypertension No date: JOSÉ ANTONIO (obstructive sleep apnea) Past Surgical History: Past Surgical History: 07/2023: CARDIAC CATHETERIZATION Comment: guy 11/2014: CORONARY ANGIOPLASTY Comment: RACHID to prox LCx & SUBSTATION MECHANIC to mid RCA 08/2012: CORONARY ANGIOPLASTY Comment: RACHID to prox-mid 1st OM & mid RCA 07/2012: CORONARY ANGIOPLASTY Comment: RACHID t (more content not included)... [facility] 09-02-2023 Telephone encounter Note Surg proc orders placed Bactroban & Peridex e-scribed JOANA Monroy CNP 09/02/23 [facility] 09-02-2023 Miscellaneous Notes Surg proc orders placed Bactroban & Peridex e-scribed JOANA Monroy CNP 09/02/23 Prep for Procedure Order Request: 09/02/23 Surgeon: Dr. Diallo Surgery/Procedure: CABG, possible radial artery, JUAN Diagnosis: CAD Plan Admit: yes PAT Appointment: yes Date if yes: 09/07/23 Date of Surgery/Procedure: 09/16/23 at 7am Medication needed held: [] None [x] Other: Per PAT protocol Medication needed prescribed: [] None [x] Nasal ointment and mouth rinse [] Other: documented in this encounter [facility] 09-02-2023 Note Prep for Procedure O rder Request: 09/02/23 Surgeon: Dr. Diallo Surgery/Procedure: CABG, possible radial artery, JUAN Diagnosis: CAD Plan Admit: yes PAT Appointment: yes Date if yes: 09/07/23 Date of Surgery/Procedure: 09/16/23 at 7am Medication needed held: [] None [x] Other: Per PAT protocol Medication needed prescribed: [] None [x] Nasal ointment and mouth rinse [] Other: [facility] 09-02-2023 Telephone encounter Note Prep for Procedure Order Request: 09/02/23 Surgeon: Dr. Diallo Surgery/Procedure: CABG, possible radial artery, JUAN Diagnosis: CAD Plan Admit: yes PAT Appointment: yes Date if yes: 09/07/23 Date of Surgery/Procedure: 09/16/23 at 7am Medication needed held: [] None [x] Other: Per PAT protocol Medication needed prescribed: [] None [x] Nasal ointment and mouth rinse [] Other: [facility] 09-01-2023 History of Presen t illness Narrative Images from the original note were not included. [facility]ARD[facility]ORAC[facility] SURGERY [address] [facility] [address] Dept: [phone] Dept Loc: [phone] Patient was identified and seen today via Telehealth by agreement and consent. I used the following Telehealth technology: Audio capability only. Total length of call 20 minutes. The patient was offered and advised video for a more comprehensive evaluation, but the patient declined or was unable to use video. Patient location: Patient Location: Home. This patient encounter is appropriate and reasonable under the circumstances: transportation issues . The patient has been advised of the potential risks and limitations of this mode of treatment (including but not limited to the absence of in-person examination) and has agreed to be treated in a remote fashion in spite of them. Any and all of the patient's/patient's family's questions on this issue have been answered and I have made no promises or guarantees to the patient. The patient has also been advised to contact this office for worsening conditions or problems, and seek emergency medical treatment and/or call 911 if the patient deems either necessary. The patient stated that they are currently in the [facility]. If the patient is a minor, permission has been obtained by the parent or guardian for the patient to receive medical care at this visit. Visit type: Established Reason for Visit: Discuss potential coronary bypass surgery Assessment and plan The vein mapping studies show that adequate vein is available for coronary revascularization. I would recommend using a left internal mammary artery grafted to the LAD and vein graft to the circumflex and right coronary artery distributions. We did do noninvasive radial artery studies to evaluate patency of the palmar arch in the event that radial arteries needed to be harvested. The report does not demonstrate palmar flow with occlusion of the radial artery. Will call to see if that part of the test was performed. However, it does appear that coronary revascularization is possible with an internal mammary artery and the greater saphenous veins. The risk benefits and alternatives were discussed in detail with the patient. He has mildly increased risk because of body habitus, lower extremity edema, and likely some difficulty ambulating after surgery. However, I do believe that surgical revascularization would offer the most durable solution to his restenosis. The risk benefits and alternatives were discussed with his as well. They wish to proceed with surgical intervention. History of Present Illness Aldo Cleary is a 67 y.o. male known to Dr. Diallo for multivessel CAD. Dr. Diallo Note 08/04/23 Assessment and plan This 67-year-old gentleman with a long history of multivessel coronary artery disease with multiple indwelling stents within all 3 coronary artery systems was found to have multivessel coronary artery disease. Patient has had some shortness of breath and vague indigestion a stress test and March 2023 was negative for ischemia. However, continued vague symptoms prompted lab work and there was marked elevation in his troponin level. Cardiac catheterization was subsequently performed and demonstrated multivessel coronary artery disease. The nondominant right coronary artery is chronically occluded without significant reconstitution distally. Additionally, there is disease within the LAD and circumflex systems which appeared to be significant in nature. The patient does have chronic venous stasis of his lower extremities and there is concern about harvesting vein from the lower part of his legs. There may be availability proximally, however, vein mapping will be required. Given his BMI and presence of diabetes, I am reticent to use bilateral BOB's. I believe a skeletonized left internal mammary artery graft to the LAD would be appropriate. We will evaluate his radial artery anatomy to determine whether a left radial artery might be available for grafting to the circumflex system. We had a long discussion regarding various options including medical therapy, PCI, and surgery. We will make a final decision following the radial artery and vein mapping studies as well as his carotid ultrasounds. The overall risks benefits and alternatives to surgery were discussed in detail with the patient. I also discussed this case with Dr. Smith on 2 occasions. We will render a final decision regarding our strategy in the very near future. Carotid ultrasound was completed on 08/13/23 and showed normal right extracranial internal carotid, mild (<50%) stenosis left extracranial internal carotid. Vein mapping and upper extremity radial artery was also completed same day. Pt is here now to discuss results. Past Medical History Past Medical History: Diagnosis Date CAD (coronary artery disease) Diabetes mellitus (HCC) Hyperlipidemia Hypertension JOSÉ ANTONIO (obstructive sleep apnea) Past Surgical History Past Surgical History: Procedure Laterality Date CARDIAC CATHETERIZATION 07/2023 guy CORONARY ANGIOPLASTY 11/2014 RACHID to prox LCx & SUBSTATION MECHANIC to mid RCA CORONARY ANGIOPLASTY 08/2012 RACHID to prox-mid 1st OM & mid RCA CORONARY ANGIOPLASTY 07/2012 RACHID to prox LAD CORONARY ANGIOPLASTY WITH STENT PLACEMENT Left 02/06/2020 RACHID to Prox LAD, Mid LAD, Prox 1st Diagonal, prox LCx EF 65-70 Family History Family History Problem Relation Name Age of Onset Heart attack Mother Social History Social History Tobacco Use Smoking status: Never Smokeless tobacco: Never Substance Use Topics Alcohol use: Yes Comment: occ Drug use: Never Allergies No Known Allergies Medications Current Outpatient Medications: aspirin ([employer] Aspirin Low Dose) 81 MG EC tablet, Take 1 tablet (81 mg) by mouth daily., Disp: 90 tablet, Rfl: 3 atorvastatin (Lipitor) 80 MG tablet, Take 1 tablet (80 mg) by mouth Nightly., Disp: 90 tablet, Rfl: 3 ezetimibe (Zetia) 10 MG tablet, Take 1 tablet (10 mg) by mouth daily., Disp: 90 tablet, Rfl: 3 fenofibrate (Triglide) 160 MG tablet, Take 1 tablet (160 mg) by mouth daily., Disp: 90 tablet, Rfl: 3 lisinopril 20 MG tablet, Take 1 tablet (20 mg) by mouth every morning., Disp: 90 tablet, Rfl: 3 metFORMIN (Glucophage) 1000 MG tablet, Take 1,000 mg by mouth 2 times daily., Disp: , Rfl: metoprolol succinate XL (Toprol-XL) 50 MG 24 hr tablet, Take 1 tablet (50 mg) by mouth daily., Disp: 90 tablet, Rfl: 3 nitroglycerin (Nitrostat) 0.4 MG SL tablet, Place 1 tablet (0.4 mg) under the tongue every 5 minutes as needed for chest pain. May repeat dose every 5 minutes for up to 3 doses total., Disp: 100 tablet, Rfl: 11 spironolactone (Aldactone) 25 MG tablet, Take 1 tablet (25 mg) by mouth daily., Disp: 90 tablet, Rfl: 3 Review of Systems Review of Systems Constitutional: Positive for fatigue. Cardiovascular: Positive for leg swelling. Physical Exam Virtual visit Labs Auto WBC Date/Time Value Ref Range Status 02/07/2020 05:22 AM 7.0 3.6 - 10.7 10*3/uL Final 02/06/2020 08:56 AM 6.4 3.6 - 10.7 10*3/uL Final Hemoglobin Date/Time Value Ref Range Status 02/07/2020 05:22 AM 13.7 13.0 - 18.0 g/dL Final 02/06/2020 08:56 AM 14.4 13.0 - 18.0 g/dL Final SODIUM Date/Time Value Ref Range Status 03/19/2023 03:05 PM 135 135 - 145 mmol/L Final 02/07/2020 05:22 AM 138 135 - 145 mmol/L Final POTASSIUM Date/Time Value Ref Range Status 03/19/2023 03:05 PM 5.6 (H) 3.5 - 5.1 mmol/L Final 02/07/2020 05:22 AM 4.1 3.5 - 5.1 mmol/L Final CREATININE Date/Time Value Ref Range Status 03/19/2023 03:05 PM 1.50 (H) 0.66 - 1.25 mg/dL Final 02/07/2020 05:22 AM 1.03 0.52 - 1.25 mg/dL Final 02/06/2020 08:56 AM 1.20 0.52 - 1.25 mg/dL Final Imaging Carotid Ultrasound 08/13/23 Upper Extremity Radial Artery 08/13/23 Vein Mapping 08/13/23 Patient Care Team: PCP: Pete Hutchison MD Cardiology: Javier Smith MD Disclaimer INFORMED CONSENT:The nature and purpose of the proposed treatment or procedure have been discussed. The risks and benefits of the proposed treatment or procedures have been reviewed. Alternatives have been reviewed in addition to the risks and benefits of not receiving treatments or undergoing procedures. Pursuant to this discussion, the patient agrees to undergo the proposed treatment or procedure. Captured images seen in this note from are not a substitute for a comprehensive interpretation of the entire data set as reflected by the interpreting physician with regard to radiology, echocardiography, and other diagnostic images. This note may have been dictated using [employer] Edition 2.6 and/or [employer] Voice Recognition Feature. The document was proofread, however unrecognized voice recognition cryptography teacher errors may be present. documented in this encounter [facility] 08-04-2023 Note Orders Placed This E ncounter Procedures Vascular US upper extremity arterial PVR Standing Status: Future Standing Expiration Date: 08/04/2025 Vascular US lower extremity vein mapping for bypass bilateral Standing Status: Future Standing Expiration Date: 08/04/2025 Vascular US carotid artery duplex bilateral Standing Status: Future Standing Expiration Date: 08/04/2025 [facility] 08-04-2023 History of Presen t illness Narrative [facility] Cardiology [facility] [address] [facility] [address] Dept: [phone] Dept Visit type: Established : 1955 Chief Complaint: Chief Complaint Patient presents with Hospital Follow-up History of Present Illness: Aldo Cleary is a 67 y.o. male Today I had the opportunity to see this gentleman for reevaluation. The patient had his usual Thanksgiving dinner in the morning after he was weak tired and feeling sick. He went to his family doctor ordered some blood tests. One of the blood test was a serum troponin level. This was elevated so he was instructed to go to the emergency room. In the emergency room he was admitted. During his hospital stay he had cellulitis of his right lower extremity which improved with antibiotics. He underwent cardiac catheterization because of the elevated troponin level this likely was a type II related to his cellulitis. He has chronic venous stasis of both lower extremities. He has had no angina. Past when he has had stenting he has had fairly classic angina he reports no angina although he does have shortness of breath with activity. Past Medical History: Past Medical History: Diagnosis Date CAD (coronary artery disease) Diabetes mellitus (HCC) Hyperlipidemia Hypertension JOSÉ ANTONIO (obstructive sleep apnea) Past Surgical History Past Surgical History: Procedure Laterality Date CARDIAC CATHETERIZATION 07/2023 guy CORONARY ANGIOPLASTY 11/2014 RACHID to prox LCx & SUBSTATION MECHANIC to mid RCA CORONARY ANGIOPLASTY 08/2012 RACHID to prox-mid 1st OM & mid RCA CORONARY ANGIOPLASTY 07/2012 RACHID to prox LAD CORONARY ANGIOPLASTY WITH STENT PLACEMENT Left 02/06/2020 RACHID to Prox LAD, Mid LAD, Prox 1st Diagonal, prox LCx EF 65-70 Family History Family History Problem Relation Name Age of Onset Heart attack Mother Social History Social History Tobacco Use Smoking status: Never Smokeless tobacco: Never Substance Use Topics Alcohol use: Yes Allergies: No Known Allergies Medications: Current Outpatient Medications: aspirin ([employer] Aspirin Low Dose) 81 MG EC tablet, Take 1 tablet (81 mg) by mouth daily., Disp: 90 tablet, Rfl: 3 atorvastatin (Lipitor) 80 MG tablet, Take 1 tablet (80 mg) by mouth Nightly., Disp: 90 tablet, Rfl: 3 ezetimibe (Zetia) 10 MG tablet, Take 1 tablet (10 mg) by mouth daily., Disp: 90 tablet, Rfl: 3 fenofibrate (Triglide) 160 MG tablet, Take 1 tablet (160 mg) by mouth daily., Disp: 90 tablet, Rfl: 3 lisinopril 20 MG tablet, Take 1 tablet (20 mg) by mouth every morning., Disp: 90 tablet, Rfl: 3 metFORMIN (Glucophage) 1000 MG tablet, Take 1,000 mg by mouth 2 times daily., Disp: , Rfl: metoprolol succinate XL (Toprol-XL) 50 MG 24 hr tablet, Take 1 tablet (50 mg) by mouth daily., Disp: 90 tablet, Rfl: 3 nitroglycerin (Nitrostat) 0.4 MG SL tablet, Place 1 tablet (0.4 mg) under the tongue every 5 minutes as needed for chest pain. May repeat dose every 5 minutes for up to 3 doses total., Disp: 100 tablet, Rfl: 11 spironolactone (Aldactone) 25 MG tablet, Take 1 tablet (25 mg) by mouth daily., Disp: 90 tablet, Rfl: 3 hydroCHLOROthiazide (Microzide) 12.5 MG capsule, Take 1 capsule (12.5 mg) by mouth daily., Disp: 90 capsule, Rfl: 3 ticagrelor (Brilinta) 60 MG tablet, TAKE 1 TABLET BY MOUTH 2 TIMES DAILY, Disp: 60 tablet, Rfl: 11 ticagrelor (Brilinta) 60 MG tablet, TAKE 1 TABLET BY MOUTH 2 TIMES DAILY, Disp: 180 tablet, Rfl: 3 Review of Systems: Review of Systems Constitutional: Positive for activity change and fatigue. HENT: Negative for nosebleeds and trouble swallowing. Eyes: Negative for discharge and visual disturbance. Respiratory: Positive for apnea (no C-pap) and shortness of breath. Negative for cough and wheezing. Cardiovascular: Positive for leg swelling (towards the end of work day). Negative for chest pain and palpitations. Recent admit and LHC at [place] Gastrointestinal: Negative for abdominal distention, abdominal pain, blood in stool, diarrhea and nausea. Burning in throat will take water Endocrine: Negative for cold intolerance and heat intolerance. Genitourinary: Negative for hematuria. Musculoskeletal: Negative for gait problem and myalgias. Skin: Negative for color change and rash. Neurological: Negative for dizziness, syncope, weakness, light-headedness and numbness. Hematological: Does not bruise/bleed easily. Psychiatric/Behavioral: Negative for dysphoric mood. Physical Examination: Vitals: Vitals: 08/04/23 1205 BP: 112/72 BP Location: Left arm Patient Position: Sitting BP Cuff Size: Large adult Pulse: 87 SpO2: 95% Weight: (!) 311 lb 3.2 oz (141 kg) Height: 6' (1.829 m) Body mass index is 42.21 kg/m . Physical Exam Vitals reviewed. Constitutional: Appearance: He is obese. HENT: Head: Normocephalic. Cardiovascular: Rate and Rhythm: Normal rate and regular rhythm. Heart sounds: Normal heart sounds. No murmur heard. No gallop. Pulmonary: Effort: Pulmonary effort is normal. Breath sounds: Normal breath sounds. Musculoskeletal: General: Swelling present. Cervical back: Neck supple. Skin: General: Skin is warm and dry. Findings: Erythema present. Neurological: General: No focal deficit present. Mental Status: He is alert and oriented to person, place, and time. Psychiatric: Mood and Affect: Mood normal. Behavior: Behavior normal. The electrocardiogram today demonstrates a sinus rhythm with an anteroseptal infarct pattern noted similar to his previous EKGs. The cardiac cath was reviewed. The right coronary artery is a nondominant vessel there is a stent in the proximal segment. This vessel is chronically occluded as noted on multiple previous cath procedures. The left coronary artery is a dominant vessel. There is a 90% stenosis at the origin of a large obtuse marginal branch. Distal to this stenosis there is a patent stent with mild degree of in-stent restenosis the AV groove branch of the circumflex artery has a new stenosis that was not present on the last procedure. This is a 90% stenosis. The proximal circumflex artery demonstrates a moderate degree of in-stent restenosis. Both the obtuse marginal as well as the posterior lateral branch appear suitable targets for revascularization. The LAD has a diffuse in-stent restenosis pattern proximally. This is within a previous stent. The mid LAD has a moderate degree of narrowing. The mid diagonal artery is occluded and fills by collaterals. The nuclear stress test which was performed earlier this year demonstrated no evidence of ischemia. The anterior lateral segment was questionable artifact which in retrospect may represent the diagonal territory. The LV function was preserved. Laboratory Tests: Lab Results Component Value Date WBC 7.0 02/07/2020 HGB 13.7 02/07/2020 MCV 85.5 02/07/2020 Lab Results Component Value Date GLUCOSE 287 (H) 03/19/2023 CALCIUM 9.6 03/19/2023 NA 135 03/19/2023 K 5.6 (H) 03/19/2023 CO2 20 (L) 03/19/2023 CL 101 03/19/2023 BUN 51 (H) 03/19/2023 CREATININE 1.50 (H) 03/19/2023 @LASTCMP@ Lab Results Component Value Date CHOL 239 (H) 03/19/2023 CHOL 198 02/07/2020 CHOL 228 (A) 02/06/2020 Lab Results Component Value Date TRIG 2,974 (H) 03/19/2023 TRIG 668 (A) 02/07/2020 TRIG 787 (A) 02/06/2020 Lab Results Component Value Date HDL 22 (L) 03/19/2023 HDL 29 (L) 02/07/2020 HDL 35 (L) 02/06/2020 Lab Results Component Value Date LDLCALC 03/19/2023 Comment: Calculated LDL invalid, triglycerides >400 mg/dl No results found for: BNP Assessment and Plan: 1. Hypertension, unspecified type 2. Coronary artery disease involving [place] coronary artery of [place] heart without angina pectoris 3. Chronic systolic congestive heart failure (HCC) 4. CAD S/P percutaneous coronary angioplasty 5. Other hyperlipidemia My summary and recommendation is to proceed with a cardiovascular evaluation with Dr. Diallo the LAD is certainly a good target for CAMARA graft and the 2 branches of the circumflex artery are also good targets. The right coronary artery is nondominant. The diagonal artery is not a large vessel. Given his chronic venous disease in his lower extremities conduit using vein graft may be an issue. A hybrid procedure certainly would be an option with stenting of the circumflex artery and a CAMARA graft to the LAD. I discussed these issues with the patient and his today here in the office I will discuss this further with Dr. Diallo asked after he has a chance to review the cath and to speak with the patient. documented in this encounter [facility] 07-29-2023 Telephone encounter Note Spoke with [facility] - they are pushing images of cath to PACS. [facility] 07-29-2023 Miscellaneous Notes Spoke with [facility] - they are pushing images of cath to PACS. Phone call to patient, he is still in [facility]. He reports that 2 days prior to going to see his PCP for a right leg infection, he had a day where he felt poorly and weak. Thus a troponin level was drawn, and per the patient was elevated at 4000. Today he underwent a LHC with Dr. Young who recommended CABG, but not urgently, He is being treated with IV ATB's for cellulitis. He also underwent an ECHO today. Results are pending. He does not believe that they are planning on an urgent transfer. I discussed with Dr. Smith. Will obtain a copy of the LHC, ( CD) and records. Arrange an OV next week with WB. Advised patient, if Dr. Young is recommending more urgent procedures, that he follow his recommendations, since we do not have access to the records yet. He agrees with this. Currently he is pain free and feeling good. Patient called stating he had a cath completed today. No stents were placed and he was informed that CABG would be needed. He would like to discuss details with our office. I spoke with [facility] medical records, once reports have been completed she will fax them to our office. Will need to get notes from [facility]. Was paged by CAC that patient had called and was asking for some recommendations. Called the patient back. According to him, patient saw his PCP earlier today and had some blood work done. Later on patient received a call saying that he should go to the ED for evaluation as his blood work was abnormal. When I called him, he had just walked in to [facility]. Patient denies any anginal symptoms at the moment and states he has been doing fine. He was asking if he should just stay there or come to [facility]. I advised him that since he is there, it would be ideal for him to at least get the evaluation done. Furthermore, [facility] does have cardiology as well if he does get admitted and have any other further workup, Dr. Smith will be able to follow-up on it if needed. Further management recs per ER and cardiology over at [facility]. I also advised that once he has his evaluation done, if you would like to come to [facility] he can after he is deemed stable. All questions were answered. Patient was appreciative of the call. Denis Shipman DO De[employer], PGY-5 Name of caller requesting page:Aldo Phone Number of caller: [phone] Facility requesting page: Patient Reason for Page: patient question regarding being referred to ER Provider paged: [facility] Name of paged provider: RODNEY Page Placed to #: Time Page was sent or provider contacted: 6:55pm Page Content : patient states he was referred to [facility] for evaluation , they felt he had a heart attack. patient is asking for a call back because he is concerned he should be going to [facility] which is an hour away. documented in this encounter [facility] 07-28-2023 Telephone encounter Note Phone call to patient, he is still in [facility]. He reports that 2 days prior to going to see his PCP for a right leg infection, he had a day where he felt poorly and weak. Thus a troponin level was drawn, and per the patient was elevated at 4000. Today he underwent a LHC with Dr. Young who recommended CABG, but not urgently, He is being treated with IV ATB's for cellulitis. He also underwent an ECHO today. Results are pending. He does not believe that they are planning on an urgent transfer. I discussed with Dr. Smith. Will obtain a copy of the [facility], ( CD) and records. Arrange an OV next week with WB. Advised patient, if Dr. Young is recommending more urgent procedures, that he follow his recommendations, since we do not have access to the records yet. He agrees with this. Currently he is pain free and feeling good. [facility] 07-28-2023 Miscellaneous Notes Phone call to patient, he is still in [facility]. He reports that 2 days prior to going to see his PCP for a right leg infection, he had a day where he felt poorly and weak. Thus a troponin level was drawn, and per the patient was elevated at 4000. Today he underwent a LHC with Dr. Young who recommended CABG, but not urgently, He is being treated with IV ATB's for cellulitis. He also underwent an ECHO today. Results are pending. He does not believe that they are planning on an urgent transfer. I discussed with Dr. Smith. Will obtain a copy of the [facility], ( CD) and records. Arrange an OV next week with WB. Advised patient, if Dr. Young is recommending more urgent procedures, that he follow his recommendations, since we do not have access to the records yet. He agrees with this. Currently he is pain free and feeling good. Patient called stating he had a cath completed today. No stents were placed and he was informed that CABG would be needed. He would like to discuss details with our office. I spoke with [facility], once reports have been completed she will fax them to our office. Will need to get notes from [facility]. Was paged by PRAVEEN that patient had called and was asking for some recommendations. Called the patient back. According to him, patient saw his PCP earlier today and had some blood work done. Later on patient received a call saying that he should go to the ED for evaluation as his blood work was abnormal. When I called him, he had just walked in to [facility]. Patient denies any anginal symptoms at the moment and states he has been doing fine. He was asking if he should just stay there or come to [facility]. I advised him that since he is there, it would be ideal for him to at least get the evaluation done. Furthermore, [facility] does have cardiology as well if he does get admitted and have any other further workup, Dr. Smith will be able to follow-up on it if needed. Further management recs per ER and cardiology over at [facility]. I also advised that once he has his evaluation done, if you would like to come to [facility] he can after he is deemed stable. All questions were answered. Patient was appreciative of the call. Denis Shipman DO [employer], PGY-5 Name of caller requesting page:Aldo Phone Number of caller: [phone] Facility requesting page: Patient Reason for Page: patient question regarding being referred to ER Provider paged: [facility] Name of paged provider: RODNEY Page Placed to #: Time Page was sent or provider contacted: 6:55pm Page Content : patient states he was referred to [facility] for evaluation , they felt he had a heart attack. patient is asking for a call back because he is concerned he should be going to [facility] which is an hour away. documented in this encounter [facility] 07-28-2023 Telephone encounter Note Patient called stating he had a cath completed today. No stents were placed and he was informed that CABG would be needed. He would like to discuss details with our office. I spoke with [facility] medical records, once reports have been completed she will fax them to our office. [facility] 07-28-2023 Telephone encounter Note Will need to get notes from [place]. [facility] 07-27-2023 Telephone encounter Note Was paged by PRAVEEN that patient had called and was asking for some recommendations. Called the patient back. According to him, patient saw his PCP earlier today and had some blood work done. Later on patient received a call saying that he should go to the ED for evaluation as his blood work was abnormal. When I called him, he had just walked in to [facility] ER. Patient denies any anginal symptoms at the moment and states he has been doing fine. He was asking if he should just stay there or come to [facility]. I advised him that since he is there, it would be ideal for him to at least get the evaluation done. Furthermore, [facility] does have cardiology as well if he does get admitted and have any other further workup, Dr. Smith will be able to follow-up on it if needed. Further management recs per ER and cardiology over at [facility]. I also advised that once he has his evaluation done, if you would like to come to [facility] he can after he is deemed stable. All questions were answered. Patient was appreciative of the call. Denis Shipman DO De[employer], PGY-5 [facility] Work Phone: 07-27-2023 Miscellaneous Notes Was paged by PRAVEEN that patient had called and was asking for some recommendations. Called the patient back. According to him, patient saw his PCP earlier today and had some blood work done. Later on patient received a call saying that he should go to the ED for evaluation as his blood work was abnormal. When I called him, he had just walked in to [facility] ER. Patient denies any anginal symptoms at the moment and states he has been doing fine. He was asking if he should just stay there or come to [facility]. I advised him that since he is there, it would be ideal for him to at least get the evaluation done. Furthermore, [facility] does have cardiology as well if he does get admitted and have any other further workup, Dr. Smith will be able to follow-up on it if needed. Further management recs per ER and cardiology over at [place]. I also advised that once he has his evaluation done, if you would like to come to [facility] he can after he is deemed stable. All questions were answered. Patient was appreciative of the call. Denis Shipman DO Deck Mate, PGY-5 Name of caller requesting page:Aldo Phone Number of caller: [phone] Facility requesting page: Patient Reason for Page: patient question regarding being referred to ER Provider paged: Umberto Hernandez Name of paged provider: RODNEY Page Placed to #: Time Page was sent or provider contacted: 6:55pm Page Content : patient states he was referred to [facility] for evaluation , they felt he had a heart attack. patient is asking for a call back because he is concerned he should be going to [facility] which is an hour away. documented in this encounter [facility] 07-27-2023 Telephone encounter Note Name of caller requesting page:Aldo Phone Number of caller: [phone] Facility requesting page: Patient Reason for Page: patient question regarding being referred to ER Provider paged: Umberto Hernandez Name of paged provider: RODNEY Page Placed to #: Time Page was sent or provider contacted: 6:55pm Page Content : patient states he was referred to [place] [facility] for evaluation , they felt he had a heart attack. patient is asking for a call back because he is concerned he should be going to [facility] which is an hour away. [facility] 04-20-2023 Nurse Note Left voicemail instructions for nuclear stress test. [facility] 04-20-2023 Nurse Note Left voicemail instructions for nuclear stress test. documented in this encounter [facility] 04-02-2023 Telephone encounter Note Last seen 03/19/23 [facility] 04-02-2023 Miscellaneous Notes Last seen 03/19/23 documented in this encounter [facility] 03-25-2023 Note I called and left an d message regarding an appointment and faxed the referral to Dr. Park's office. [facility] 03-25-2023 Note I put referral order in for Endocrinology [facility] 03-25-2023 Telephone encounter Note PC to patient, provided phone number for Dr. Park. His new orders for blood work have been mailed. [facility] 03-25-2023 Miscellaneous Notes PC to patient, provided phone number for Dr. Park. His new orders for blood work have been mailed. I called and left and message regarding an appointment and faxed the referral to Dr. Park's office. I put referral order in for Endocrinology Lab orders mailed to patient. PC to patient. Discussed his CMP and lipid results. He will have them redrawn , but be fasting this time. He is agreeable to a visit with Endocrinology. He lives in [place]. Dr.Toni King [place], has an office down there, I left a message on their office voice mail for a referral. Orders for repeat labs placed. P)lease mail to patient. He denies any abdominal pain. Phone number for Dr. Shine Park in [phone]. Since he was not fasting for lab work should repeat Lipids with HBG A 1 C. Order placed. PC to patient, to review labs, LMOVM to call office. Dr. Smith would like him referred to endocrinology, ( please ask if he is seeing one now). Also need to verify that he is taking all his meds. Needs to get an HBG A1C drawn as well. documented in this encounter [facility] 03-25-2023 Telephone encounter Note I called and left and message regarding an appointment and faxed the referral to Dr. Park's office. [facility] 03-25-2023 Telephone encounter Note I put referral order in for Endocrinology T [facility] 03-25-2023 Telephone encounter Note Lab orders mailed to patient. T [facility] 03-25-2023 Telephone encounter Note PC to patient. Discussed his CMP and lipid results. He will have them redrawn , but be fasting this time. He is agreeable to a visit with Endocrinology. He lives in [place]. Dr.Toni King [place], has an office down there, I left a message on their office voice mail for a referral. Orders for repeat labs placed. P)lease mail to patient. He denies any abdominal pain. Phone number for Dr. Shine Park in [phone]. [facility] 03-25-2023 Telephone encounter Note Since he was not fasting for lab work should repeat Lipids with HBG A 1 C. Order placed. [facility] 03-24-2023 Telephone encounter Note PC to patient, to review labs, LMOVM to call office. Dr. Smith would like him referred to endocrinology, ( please ask if he is seeing one now). Also need to verify that he is taking all his meds. Needs to get an HBG A1C drawn as well. [facility] 02-12-2023 Telephone encounter Note LM for pt to call office to schedule annual [facility] 02-12-2023 Miscellaneous Notes LM for pt to call office to schedule annual documented in this encounter [facility] 12-30-2022 Telephone encounter Note Lm for pt to call office to schedule appt today as well as leaving a message on 09/10/22 which is previously noted. [facility] 12-30-2022 Miscellaneous Notes Lm for pt to call office to schedule appt today as well as leaving a message on 09/10/22 which is previously noted. Last OV [facility] 08/15/21. Message was left for pt by Miri Feliz on 09/10/22 to schedule annual follow up. Labs also ordered on that date but not completed. Miri please notify the pt that he needs to schedule follow up and do labs in order to get these refilled. documented in this encounter [facility] 12-22-2022 Miscellaneous Notes Last OV [facility]BB 08/15/21. Message was left for pt by Miri Feliz on 09/10/22 to schedule annual follow up. Labs also ordered on that date but not completed. Miri please notify the pt that he needs to schedule follow up and do labs in order to get these refilled. documented in this encounter [facility] 12-22-2022 Telephone encounter Note Last OV [facility]BB 08/15/21. Message was left for pt by Miri Feliz on 09/10/22 to schedule annual follow up. Labs also ordered on that date but not completed. Miri please notify the pt that he needs to schedule follow up and do labs in order to get these refilled. [facility] documented in this encounter [facility] Diagnosis Essential (primary) hypertension Unspecified essential hypertension Mixed hyperlipidemia Atherosclerotic heart disease of [place] coronary artery without angina pectoris Chronic systolic (congestive) heart failure (HCC) documented in this encounter [facility]* Diagnosis Essential (primary) hypertension Unspecified essential hypertension Chronic systolic (congestive) heart failure (HCC) Mixed hyperlipidemia Atherosclerotic heart disease of [place] coronary artery without angina pectoris documented in this encounter [facility] Diagnosis Essential (primary) hypertension Unspecified essential hypertension Chronic systolic (congestive) heart failure (HCC) Mixed hyperlipidemia Atherosclerotic heart disease of [place] coronary artery without angina pectoris documented in this encounter [facility] Diagnosis Atherosclerotic heart disease of [place] coronary artery without angina pectoris Essential (primary) hypertension Unspecified essential hypertension Chronic systolic (congestive) heart failure (HCC) Mixed hyperlipidemia [facility] Diagnosis Diabetes mellitus type II, non insulin dependent (HCC)- Primary Type II or unspecified type diabetes mellitus without mention of complication, not stated as uncontrolled Mixed hyperlipidemia documented in this encounter [facility] Diagnosis CAD (coronary artery disease) Coronary atherosclerosis of unspecified type of vessel, [place] or graft Atherosclerotic heart disease of [place] coronary artery without angina pectoris documented in this encounter [facility] Diagnosis Hypertension, unspecified type Coronary artery disease involving [place] coronary artery of [place] heart without angina pectoris Chronic systolic congestive heart failure (HCC) CAD S/P percutaneous coronary angioplasty Other hyperlipidemia documented in this encounter [facility]* Diagnosis Coronary artery disease involving coronary bypass graft of [place] heart without angina pectoris- Primary JOSÉ ANTONIO (obstructive sleep apnea) Obstructive sleep apnea (adult) (pediatric) Coronary artery disease involving [place] coronary artery of [place] heart without angina pectoris documented in this encounter [facility]* Diagnosis CAD in [place] artery- Primary Atherosclerotic heart disease of [place] coronary artery without angina pectoris documented in this encounter [facility] Diagnosis Coronary artery disease involving [place] coronary artery of [place] heart without angina pectoris Atherosclerotic heart disease of [place] coronary artery without angina pectoris [facility] Consultation (Urgent) - Pending Review Specialty Diagnoses / Procedures Referred By Contac t Referred To Contact Endocrinology Diagnoses Diabetes mellitus type II, non insulin dependent (HCC) Mixed hyperlipidemia Procedures [place] OFFICE/OUTPATIENT [facility] 60-74 MINUTES Caro Maloney APRN - CNP [address] [facility] [address] [place] [address] Shine Park MD [address] [facility] [address] [place] [address] Referral ID Status Reason Start Date Expiration Date Visits Requested Visits Authorized [id number] Pending Review Specialty Services Required 03/25/2023 03/24/2024 1 1 [facility] Advance Directives No Advanced Directives Records FoundDocuments on File Type Date 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 If you are unable to fill your medications, please call your Procedure Writer immediately. The office number is located with your follow-up appointment information. Call your doctor if any redness or drainage from the wound site. DO NOT stop taking your medication unless instructed to do so by your doctor. Read the drug information material that were given to you and take medications as instructed by your doctor. New drugs may have been added to your medications, that will strengthen your heart and prevent re-stenosis of the coronary arteries. Drink 6 glasses of water (8 ounces each) over the next 24 hours. Water helps clear the dye from your body. No alcoholic beverages for 24 hours. It may interfere with healing. No exercise or sex for 5 days. Call 911 for chest pain, arm pain, nausea, neck pain, dizziness or unusual sweating AND your pain has not relieved with 2 doses of Nitroglycerin. Call your doctor if a lump at the puncture site enlarges or is larger than marble size. Call your doctor for numbness, tingling, or swelling of the fingers, hand or wrist. Call your doctor for increased area or bruising with discoloration extending into the arm. If bleeding occurs, hold pressure with your thumb against the puncture site and your finger againstthe back of the wrist for 10 minutes, if BLEEDING continues CALL 911. OK to shower. No tub baths, swimming pools or hot tub soaking for three days. Wash site daily with soap and water, dry gently. The healing wound should remain soft and dry. Keepsite clean and dry, no soaking of wrist for three days (no cleaning or dish washing). Remove band aid the day after procedure and leave open to air. No bending of affected wrist for 24 hours. DO NOT lift more than three pounds for 3-5 days[address] driving for 24 hours. GIVE PCI PACKET (FROM [facility]) TO PATIENT Give Coronary Artery Discharge Booklet PLEASE CALL YOUR HEART DOCTOR IF YOU CANNOT GET YOUR MEDICATIONS. THE NUMBER IS LISTED WITH YOUR FOLLOW-UP APPOINTMENT. Procedure Sedation Instructions 1. If you have received sedation: you must have someone drive you home 2. You should not drive a car, operate machinery, drink alcohol or perform any activity that requires alertness for the rest of the day. The effects of the sedative should be gone by tomorrow. Blood work in 5-7 days, see orders Cardiac Rehab The Cardiac Rehabilitation Team at [facility] consists of highly skilled healthcare professionals, including nurses, physicians, and exercise physiologists all working together to help you return to a healthy, and active lifestyle. As a survivor of heart disease the program is designed to answer all of your questions about the disease through education, activity, monitored exercise, diet modification, and medication adherence. This program is proven to reduce reoccurrence of heart disease and reduce readmission. It is important for you to enroll in the program by attending orientation. For any questions regarding this valuable service please call # [phone] Orientation is available on all Wednesdays at 11:30 am location in the [address] * Attachments The following attachments cannot be sent through Care Everywhere. * CAD (Coronary Artery Disease): General Info (Israeli) * PCI (Percutaneous Coronary Intervention): Post-op (Israeli) documented in this encounter History of Present Illness * Robi, Javier B, MD - 02/07/2020 8:20 AM EDT INTERVENTIONAL CARDIOLOGY PROGRESS NOTE Chart and interval events reviewed. Reason for Visit s./p PCI complex SUBJECTIVE: Aldo Cleary states he feels well. No angina SCHEDULEDMEDICATIONS: sodium chloride flush 10 mL Intravenous 2 times per day aspirin 81 mg Oral Daily atorvastatin 80 mg Oral Nightly clopidogrel 75 mg Oral Daily fenofibrate 160 mg Oral Daily metoprolol succinate 50 mg Oral Daily ramipril 10 mg Oral Daily spironolactone 25 mg Oral Daily Active Problems: Status post left heart catheterization Cardiac disease CAD S/P percutaneous coronary angioplasty Resolved Problems: * No resolved hospital problems. * Review of Systems: Review of Systems Constitutional: Negative for chills, diaphoresis and fever. HENT: Negative for nosebleeds. Eyes: Negative for visual disturbance. Respiratory: Negative for cough, shortness of breath and wheezing. Cardiovascular: Negative for chest pain, palpitations and leg swelling. Gastrointestinal: Negative for abdominal pain, blood in stool, constipation, diarrhea, nausea and vomiting. Genitourinary: Negative for hematuria. Musculoskeletal: Negative for myalgias. Skin: Negative for rash. Neurological: Negative for dizziness and syncope. Hematological: Does not bruise/bleed easily. Psychiatric/Behavioral: Negative for dysphoric mood and suicidal ideas. Denies Depression SIGNS: Vitals: 02/06/20 1957 02/06/20 2304 02/07/20 0233 02/07/20 0708 BP: 119/69 125/76 124/73 132/75 Pulse: 62 63 67 64 Resp: Temp: 97 F (36.1 C) 96.9 F (36.1 C) 97.2 F (36.2 C) 96.7 F (35.9 C) TempSrc: Temporal Temporal Temporal Temporal SpO2: 96% 95% 97% 95% Weight: Height: No intake or output data in the 24 hours ending 02/07/20 0820 Patient Vitals for the past 96 hrs (Last 3 readings): Weight 02/06/20 0901 300 lb (136.1 kg) Physical Exam: Physical Exam Vitals signs reviewed. Constitutional: Appearance: Normal appearance. HENT: Head: Normocephalic. Eyes: Conjunctiva/sclera: Conjunctivae normal. Neck: Musculoskeletal: Neck supple. Cardiovascular: Rate and Rhythm: Normal rate and regular rhythm. Heart sounds: Murmur present. Pulmonary: Effort: Pulmonary effort is normal. Breath sounds: Normal breath sounds. Abdominal: Palpations: Abdomen is soft. Musculoskeletal: General: No swelling. Skin: General: Skin is warm and dry. Neurological: General: No focal deficit present. Mental Status: He is alert and oriented to person, place, and time. Psychiatric: Mood and Affect: Mood normal. Behavior: Behavior normal. Data: Scheduled Meds:Reviewed Continuous Infusions: CBC: Recent Labs 02/06/20 0856 02/07/20 05 WBC 6.4 7.0 HGB 14.4 13.7 HCT 41.8 39.7* PLT 186 159 BMP: Recent Labs 02/06/20 0856 02/07/20521 NA 136 138 K 4.5 4.1 CL 106 107 CO2 14* 18* BUN 38* 29* CREATININE 1.20 1.03 INR: No results for input(s): INR in the last 72 hours. No results for input(s): BNP in the last 72 hours. TSH: No results found for: TSH Cardiac InjuryProfile: No results for input(s): CKTOTAL, CKMB, TROPONINI in the last 72 hours. Lipid Profile: Lab Results Component Value Date TRIG 668 02/07/2020 HDL 29 02/07/2020 CHOL 198 02/07/2020 CHOL 504 06/04/2019 EKG: See Report Telemetry Reviewed: Echo: not done this visit Cath; LAD / CIRC proximal stents and LAD/DIAG bifurcation stents LV function normal Lipids elevated TG IMPRESSIONS/RECOMMENDATIONS: 1. Home today 2. Brilinta now, DC Plavix * Laura Trammell APRN - MANAGER PAPER - 02/06/2020 1:51 PM EDT Mr. Cleary states he is feeling well. No chest pain. He doesn't feel shortness of breath. States he feels better than he has for awhile. Right radial cath site with vasc band still in place. No hematoma. Slight ooze. +2 radial pulse palp. Mr. Cleary was given home going instructions that included site care. He verbalizes understanding. documented in this encounter Assessments Diagnosis Cardiac disease Heart disease, unspecified CAD S/P percutaneous coronary angioplasty Coronary atherosclerosis of [place] coronary artery Status post left heart catheterization Summary Purpose Family History No Family History Records FoundNo Family History Records Found Hospital Course Note PATIENT: ALDO CLEARY [facility] RECORD #: [id number] ADMISSION DATE: 02/06/2020 DISCHARGE DATE: 02/07/2020 DATE OF : 1955 AGE: 64 ADMITTING PHYSICIAN: Javier Smith MD ATTENDING PHYSICIAN: Javier Smith MD DICTATING PHYSICIAN: Javier Smith MD DISCHARGE SUMMARY Clinical history: The patient is a 64-year-old man, who is admitted for cardiac catheterization. Over the last few weeks, he has developed effort-related angina. The patient has a long history of coronary artery disease with stenting on at least 3 occasions. Hospital Course and Significant Findings: The right coronary artery is a nondominant vessel. There is a stent in the proximal to mid portion which is occluded. This is similar to his last procedure. The left coronary artery demonstrates no significant left main obstruction. The origin of the left anterior descending artery demonstrates a new stenosis of 80%. The proximal circumflex artery which is a dominant vessel has a 9 (more content not included)... Reason for Referral Specialty Diagnoses / Procedures Referred By Nathanael lozano Referred To Contact Cardiology Diagnoses CAD (coronary artery disease) Atherosclerotic heart disease of [place] coronary artery without angina pectoris Procedures Nuclear REG[place]ON stress test with myocardial perfusion Javier Smith MD [address] [facility] [facility] [address] [place] [address] Referral ID Status Reason Start Date Expiration Date Visits Re quested Visits Authorized [id number] Closed 03/19/2023 09/15/2023 1 1 Specialty Diagnoses / Procedures Referred By Nathanael lozano Referred To Contact Cardiology Diagnoses Coronary artery disease involving [place] coronary artery of [place] heart without angina pectoris Procedures Vascular US palmar arch evaluation Vascular US upper extremity arterial PVR Nery Diallo MD [address] [place] [address] Referral ID Status Reason Start Date Expiration Date Visits Re quested Visits Authorized [id number] Closed 09/02/2023 09/01/2024 1 1 Additional Source Comments (unrecognized sect ion and content) No Status Records FoundNo Status Records Found INFORMATION SOURCE (unrecogn ized section and content) DATE CREATED AUTHOR AUTHOR'S ORGANIZ ATION 09/11/2023 [facility] Reason for Visit (unrecogniz ed section and content) Specialty Diagnoses / Procedures Referred By Contac t Referred To Contact Cardiology Diagnoses CAD (coronary artery disease) Atherosclerotic heart disease of [place] coronary artery without angina pectoris Procedures Nuclear [place] stress test with myocardial perfusion Javier Smith MD [address] [facility] [address] [place] [address] Referral ID Status Reason Start Date Expiration Date Visits Re quested Visits Authorized [id number] Closed 03/19/2023 09/15/2023 1 1 Reason Onset Date Comments Other 07/27/2023 Reason Comments Hospital Follow-up Reason Comments Follow-up Reason Onset Date Comments Surgery Scheduling 09/02/2023 Specialty Diagnoses / Procedures Referred By Contac t Referred To Contact Cardiology Diagnoses Coronary artery disease involving [place] coronary artery of [place] heart without angina pectoris Procedures Vascular US palmar arch evaluation Vascular US upper extremity arterial PVR Nery Diallo MD [address] [facility] [place] [address] Referral ID Status Reason Start Date Expiration Date Visits Re quested Visits Authorized [id number] Closed 09/02/2023 09/01/2024 1 1 Care Teams (unrecognized sec tion and content) Broadcast Systems Engineer Relationship Specialty Start Date End Date Pete Hutchison MD [address] [place] [phone] PCP - General 10/15/17 Broadcast Systems Engineer Relationship Specialty Start Date End Date Pete Hutchison MD [address] [place] [address] PCP - General 10/15/17 Broadcast Systems Engineer Relationship Specialty Start Date End Date Pete Hutchison MD [address] [place] [address] PCP - General 10/15/17 Broadcast Systems Engineer Relationship Specialty Start Date End Date Pete Hutchison MD [address] [place] [address] PCP - General 10/15/17 Broadcast Systems Engineer Relationship Specialty Start Date End Date Pete Hutchison MD [address] [place] [address] PCP - General 10/15/17 Broadcast Systems Engineer Relationship Specialty Start Date End Date Pete Hutchison MD [address] [place] [address] PCP - General 10/15/17 Broadcast Systems Engineer Relationship Specialty Start Date End Date Pete Hutchison MD [address] [place] [address] PCP - General 10/15/17 Broadcast Systems Engineer Relationship Specialty Start Date End Date Pete Hutchison MD [address] [place] [address] PCP - General 10/15/17 Broadcast Systems Engineer Relationship Specialty Start Date End Date Pete Hutchison MD [address] [place] [address] PCP - General 10/15/17 Broadcast Systems Engineer Relationship Specialty Start Date End Date Pete Hutchison MD [address] [place] [phone] PCP - General 10/15/17 Broadcast Systems Engineer Relationship Specialty Start Date End Date Pete Hutchison MD [address] [place] [address] PCP - General 10/15/17 Broadcast Systems Engineer Relationship Specialty Start Date End Date Pete Hutchison MD [address] [place] [address] PCP - General 10/15/17 Broadcast Systems Engineer Relationship Specialty Start Date End Date Pete Hutchison MD [address] [facility] [address] [place] [phone] [facility] 10/15/17 FOR RECORDS PERTAINING TO PATIENTS WHO ARE OR HAVE BEEN ENROLLED IN A CHEMICAL DEPENDENCY/SUBSTANCEABUSE PROGRAM, SOME INFORMATION MAY BE OMITTED. This clinical summary was aggregated from multiple sources. Caution should be exercised in using it in the provision of clinical care. This summary normalizes information from multiple sources, and as a consequence, information in this document may materially change the coding, format and clinical context of patient data. In addition, data may be omitted in some cases. CLINICAL DECISIONS SHOULD BE BASED ON THE PRIMARY CLINICAL RECORDS. [facility] [employer] [facility]. provides no warranty or guarantee of the accuracy or completeness of information in this document.
[2023-09-12 08:25] LABS: Absolute Lymphocyte Count 2.01 X10^3/uL (0.83-4.51); Absolute Neutrophil Count 5.4 X10^3/uL (2.0-7.7); Basophil# 0.04 X10^3/uL; Basophil% 0.5 % (0-1); Eosinophil# 0.25 X10^3/uL; Hematocrit 42.5 % (40-54); Hemoglobin 13.9 g/dL (13.0-16.5); Lymphocyte # 2.01 X10^3/ul (0.83-4.51); Lymphocyte % 24.2 % (19-41); Mean Corp Hgb Conc 32.7 g/dL (32-36); Mean Corpuscular Hgb 28.1 pg (27.0-32.0); Mean Corpuscular Volume 85.9 fL (80-94); Mean Platelet Vol. 9.5 fl (6.2-12.0); Monocyte# 0.59 X10^3/uL; Monocyte% 7.1 % (0-10); NRBC Flagged by Analyzer 0 % (0-5); Neutrophil # 5.35 X10^3/uL (2.7-7.7); Neutrophil % 64.4 % (47-70); Platelet Count 211 K/mm3 (150-450); RBC Distribution Width CV 13.3 % (11.6-14.6); RBC Distribution Width SD 41.6 fl (35.1-43.9); Red Blood Count 4.95 M/mm3 (4.6-6.2); White Blood Count 8.3 K/mm3 (4.4-11.0)
[2023-09-12 10:03] LABS: ALB/GLOB Ratio 0.8 RATIO (0.9-2.4); AST(SGOT) 15 U/L (15-37); Alanine Aminotransfer ALT/SGPT 29 U/L (16-61); Albumin, Serum 3.5 g/dL (3.2-5.0); Alkaline Phosphatase 47 U/L (45-117); Anion Gap 10 (5-15); BUN 42 mg/dL (7-18); BUN/Creat Ratio 24.7 RATIO (10-20); Calcium,Total 9.6 mg/dL (8.5-10.1); Chloride 106 mmol/L (98-107); Cholesterol 176 mg/dL (200); EST Glomerular Filtration Rate 43 mL/min (>60); Est Glom Filt Rate - Afr Amer 52 mL/min (>60); Globulin 4.2 g/dL (2.2-4.2); Glucose 259 mg/dL (74-106); High Density Lipoprotein 38 mg/dL; Potassium 4.9 mmol/L (3.5-5.1); Protein, Total 7.7 g/dL (6.4-8.2); Sodium Level 135 mmol/L (136-145); Thyroid Stim Hormone (TSH) 2.25 uIU/mL (0.358-3.74); Triglycerides 655 mg/dL
== END | disposition home or self-care (01) ==
LOC: LAB 08:05
PROVIDERS: PCP Family Medicine
DX: I25.10 Atherosclerotic heart disease of native coronary artery without angina pectoris (principal); E11.65 Type 2 diabetes mellitus with hyperglycemia
CPT/HCPCS: 36415; 80053; 80061; 84443; 85025

== ENCOUNTER → 2024-04-29 | Outpatient (CLI) | payer BC, SELFPAY ==
[2024-04-29 10:08] LABS: Cholesterol 125 mg/dL (200); High Density Lipoprotein 39 mg/dL; Triglycerides 232 mg/dL; Very Low Density Lipoprotein 46 mg/dL (5-40)
[2024-04-30 08:12] LABS: LDL, Direct 120295 51 mg/dL (0-99)
== END | disposition home or self-care (01) ==
LOC: LAB 08:20
PROVIDERS: PCP Family Medicine; Referring Provider Internal Medicine Cardiovascular Disease; Visit Provider Internal Medicine Cardiovascular Disease
DX: E78.2 Mixed hyperlipidemia (principal)
CPT/HCPCS: 36415; 80061; 83721

== ENCOUNTER 2024-05-28 12:38 | Emergency (ER) | payer BC, SELFPAY ==
[2024-05-28 12:39] VITALS: BP 106/61; PULSE 75; RESP 18; TEMP 36.6; O2SAT 97; BMI 39.0
[2024-05-28] MEDS: Diphth,Pertuss(Acell),Tet Vac 0.5 ML Vial IM (13:56)
[2024-05-28] MEDS: Lidocaine 1% (20 ml mdv) 20 ML Vial INFILT (13:56)
--- NOTE | 2024-05-28 15:18 | ED.VIS.LOWEX ---
HPI History of Present Illness Chief Complaint: Lower Extremity Injury Informant: patient Narrative Narrative: 68-year-old male was using a hammer to break apart a toilet today when a piece of the toilet splintered and causing laceration to his leg. He is unable to get the bleeding stopped. He has chronic leg swelling and venous stasis. He states he he takes a baby aspirin and Brilinta. Unknown last tetanus Tetanus Immunization: Unknown [facility] Medical History Elevated troponin Tinea pedis Non-ST elevated myocardial infarction Diabetes mellitus, type 2 Morbid obesity CAD (coronary artery disease) Stage 3b chronic kidney disease High cholesterol HTN (hypertension) Home Medications ?Medication ?Instructions ?Recorded ?Last Taken ?Type aspirin 81 mg tablet 81 mg PO DAILY heart health 04/14/21 Unknown History atorvastatin 80 mg tablet 80 mg PO DAILY cholesterol 04/14/21 Unknown History fenofibrate 160 mg tablet 160 mg PO DAILY triglycerides 04/14/21 Unknown History metoprolol succinate 50 mg 50 mg PO DAILY blood pressure 04/14/21 Unknown History tablet,extended release 24 hr spironolactone 25 mg tablet 25 mg PO DAILY diuretic 04/14/21 Unknown History needle (disp) #500 ea 04/22/21 Unknown Rx metformin 1,000 mg tablet 1,000 mg PO BID 07/27/23 Unknown History nitroglycerin 0.4 mg sublingual 0.4 mg sublingual Q5M PRN chest 07/27/23 Unknown History tablet pain insulin glargine-yfgn 100 unit/mL 15 unit (0.15 mL) subcut DAILY #15 07/29/23 Unknown Rx (3 mL) subcutaneous pen mL pen needle, diabetic 31 gauge x #100 ea 07/29/23 Unknown Rx 5/16 (BD Ultra-Fine Short Pen Needle) cephalexin 500 mg capsule 500 mg PO TID #15 CAPSULES 05/28/24 Unknown Rx ezetimibe 10 mg tablet 10 mg PO DAILY 05/28/24 Unknown History furosemide 20 mg tablet 20 mg PO DAILY 05/28/24 Unknown History losartan 50 mg tablet 50 mg PO DAILY 05/28/24 Unknown History ticagrelor 90 mg tablet (Brilinta) 90 mg PO BID 05/28/24 Unknown History Allergy/AdvReac Type Severity Reaction Status Date / Time No Known Allergies Allergy Verified 07/27/23 19:06 Family History Other CAD (coronary artery disease) Surgical History Stented coronary artery Social History Smoking Status: Never smoker ROS ROS ED Constitutional Constitutional ED: Denies chills, fever(s) or weight loss Eyes Eyes: Denies change in vision or diplopia ENT ENT ED: Denies ear pain, rhinorrhea or sore throat Cardiovascular Cardiovascular: Denies chest pain, orthopnea, palpitations or racing heartbeat Respiratory/Chest Respiratory/Chest: Denies cough, dyspnea or orthopnea Gastrointestinal Gastrointestinal: Denies abdominal pain, diarrhea, nausea or vomiting Genitourinary Genitourinary ED: Denies dysuria, hematuria or urinary frequency Musculoskeletal Musculoskeletal: Denies arthralgias or myalgias Integumentary Reports other Details: Laceration ; Denies abscess or rash Neurologic Neurologic: Denies headache(s) or weakness Psychiatric Psychiatric: Denies anxiety, depression, suicidal ideation or suicidal thoughts Endocrine Endocrinology: Denies polydipsia, polyphagia or polyuria Allergic/Immunologic Allergic/Immunologic ED: Denies mouth swelling, tongue swelling or urticaria EXAM Physical Exam Const Vital Signs: 05/28/24 12:39 Temperature 97.9 F Temperature Source Oral Pulse Rate 75 Respiratory Rate 18 Blood Pressure 106/61 Blood Pressure Mean 76 Pulse Ox 97 Oxygen Delivery Method Room Air Positive well nourished, well developed and obese General Appearance ED: well developed and NAD Nutritional Appearance: obese HEENT Reports normocephalic, head/scalp atraumatic and moist mucous membranes Eyes PERRL and EOMs intact bilaterally Neck no lymphadenopathy, supple and no JVD Resp normal respiratory effort and clear to auscultation bilaterally Cardio regular rate, regular rhythm and no murmurs GI normal to inspection, nondistended, normoactive bowel sounds and non-tender Palpation: soft Back/Spine no CVA tenderness and normal ROM Extremity Extremity Narrative: There is a 2.5 cm linear laceration of the medial aspect of the distal right leg. Mild venous bleeding is noted. Wound edges are approximated. General Extremety ED: Yes edema General Extremity: edema bilateral lower extremity Details: moderate Neuro oriented x3 and CN's II-XII intact bilaterally Sensorium / Orientation: alert Motor Exam: strength 5/5 throughout Psych mental status grossly normal Mood & Affect: Negative for depressed or tearful Skin no rashes or lesions noted and no wounds MDM MDM MDM Narrative Medical decision making narrative: 1% lidocaine was used to anesthetize the wound. A total of 4 simple erupted 3-0 Ethilon sutures were placed to close the wound and allowed good homeostasis. Wound was dressed. Tetanus was updated. Would recommend follow-up 10 days for suture removal. Because the patient has had prior cellulitis and has venous stasis I am going to place him on a antibiotic over the next couple days as a prophylaxis. Return if concerns History & Record Review Discussion w/independent historian: Patient Discharge Plan Triage Chief Complaint: Lower Extremity Injury ED Provider: Jaswant Méndez Dx/Rx/DC Orders Clinical Impression: Laceration of leg, Venous stasis Instructions: ED Laceration, All Closures Prescriptions: New cephalexin 500 mg capsule 500 mg PO TID Qty: 15 0RF No Action atorvastatin 80 mg Tablet 80 mg PO DAILY metoprolol succinate 50 mg Tablet Extended Release 24 Hr 50 mg PO DAILY spironolactone 25 mg Tablet 25 mg PO DAILY aspirin 81 mg Tablet 81 mg PO DAILY fenofibrate 160 mg Tablet 160 mg PO DAILY (DME) needle (disp) Needle See Rx Instructions .ROUTE .MEDSUPPLY Qty: 500 0RF Rx Instructions: As directed metformin 1,000 mg tablet 1,000 mg PO BID Patient Comments: TAKE 1 TABLET BY MOUTH TWICE A DAY nitroglycerin 0.4 mg tablet, sublingual 0.4 mg sublingual Q5M PRN (Reason: chest pain) Patient Comments: PLEASE SEE ATTACHED FOR DETAILED DIRECTIONS insulin glargine-yfgn 100 unit/mL (3 mL) Insulin Pen 15 unit subcut DAILY Qty: 15 0RF (DME) pen needle, diabetic [BD Ultra-Fine Short Pen Needle] 31 gauge x 5/16 needle See Rx Instructions .Route Qty: 100 3RF Rx Instructions: As directed losartan 50 mg tablet 50 mg PO DAILY furosemide 20 mg tablet 20 mg PO DAILY ezetimibe 10 mg tablet 10 mg PO DAILY Brilinta 90 mg tablet 90 mg PO BID Primary Care Provider: Pete Perez Referrals: Pete Perez MD [Primary Care Provider] - 10 Day for suture removal Print Language: Nepali Disposition Disposition: Home, Self Care Discharge Date/Time: 05/28/24 14:46
== END 2024-05-28 14:46 | disposition home or self-care (01) ==
PROVIDERS: Emergency Provider Emergency Medicine; PCP Family Medicine; Visit Provider Emergency Medicine
DX: S81.811A Laceration without foreign body, right lower leg, initial encounter (principal); E66.01 Morbid (severe) obesity due to excess calories; E11.22 Type 2 diabetes mellitus with diabetic chronic kidney disease; N18.32 Chronic kidney disease, stage 3b; I12.9 Hypertensive chronic kidney disease with stage 1 through stage 4 chronic kidney disease, or unspecified chronic kidney disease; I87.8 Other specified disorders of veins; E78.00 Pure hypercholesterolemia, unspecified; I25.10 Atherosclerotic heart disease of native coronary artery without angina pectoris; Z79.02 Long term (current) use of antithrombotics/antiplatelets; Z79.82 Long term (current) use of aspirin; Z23 Encounter for immunization; M79.89 Other specified soft tissue disorders; Z79.899 Other long term (current) drug therapy; W26.8XXA Contact with other sharp object(s), not elsewhere classified, initial encounter
CPT/HCPCS: 12001; 90471; 90715; 99282

== ENCOUNTER 2024-07-30 13:20 | Inpatient (IN) | payer BC, SELFPAY ==
[2024-07-30] VITALS (7 sets, daily range): BP systolic 99–120; BP diastolic 66–96; PULSE 78–87; RESP 10–17; TEMP 36.3–36.4; O2SAT 96–99; BMI 40.8; BMI 40.4
[2024-07-30 13:45] LABS: Absolute Neutrophil Count 8.9 X10^3/uL (2.0-7.7); Basophil# 0.06 X10^3/uL; Basophil% 0.5 % (0-1); Eosinophil# 0.23 X10^3/uL; Eosinophils% 1.9 % (0-5); Hematocrit 46.8 % (40-54); Hemoglobin 14.9 g/dL (13.0-16.5); Lymphocyte % 15.2 % (19-41); Mean Corp Hgb Conc 31.8 g/dL (32-36); Mean Corpuscular Hgb 27.7 pg (27.0-32.0); Mean Platelet Vol. 10.2 fl (6.2-12.0); Monocyte# 0.79 X10^3/uL; Monocyte% 6.7 % (0-10); NRBC Flagged by Analyzer 0 % (0-5); Platelet Count 247 K/mm3 (150-450); RBC Distribution Width CV 13.6 % (11.6-14.6); RBC Distribution Width SD 43.8 fl (35.1-43.9); Red Blood Count 5.38 M/mm3 (4.6-6.2); White Blood Count 11.9 K/mm3 (4.4-11.0)
[2024-07-30 13:54] LABS: International Normalized Ratio 1.1; Prothrombin Time (Protime)PT. 13.8 SECONDS (11.7-14.9)
[2024-07-30 13:55] LABS: Partial Thromboplast Time 27.3 Seconds (24.1-36.2)
[2024-07-30 14:02] LABS: Anion Gap 6 (5-15); BUN 40 mg/dL (7-18); BUN/Creat Ratio 23.4 RATIO (10-20); Calcium,Total 9.4 mg/dL (8.5-10.1); Chloride 108 mmol/L (98-107); Creatinine, Serum 1.71 mg/dL (0.70-1.30); EST Glomerular Filtration Rate 43 mL/min (>60); Est Glom Filt Rate - Afr Amer 52 mL/min (>60); Glucose 204 mg/dL (74-106); Potassium 4.7 mmol/L (3.5-5.1); Sodium Level 138 mmol/L (136-145); Troponin-I HS (w/2H Reflex) 382 pg/mL (3.0-78.0)
[2024-07-30] MEDS: Nitroglycerin Oint 1 INCH PACKET TD (14:19)
[2024-07-30] MEDS: Ondansetron 4 MG/2 ML Vial IV (14:58)
[2024-07-30] MEDS: Morphine 4 MG/ML Syringe IV (14:58)
[2024-07-30] MEDS: Heparin Injection (Vial) 5,000 UNIT/ML VIAL 11000 UNIT IV (15:14)
[2024-07-30 15:16] LABS: International Normalized Ratio 1.1; Partial Thromboplast Time 27.9 Seconds (24.1-36.2); Prothrombin Time (Protime)PT. 13.9 SECONDS (11.7-14.9)
[2024-07-30] MEDS: HEPARIN/D5w 25,000 UNITS 25,000 UNITS/250 ML IV.SOLN. 18 UNITS CONT INF (15:19)
[2024-07-30 15:35] LABS: Reflex Troponin-HS? (from REC) Y
[2024-07-30 16:54] LABS: Magnesium 2.1 mg/dL (1.6-2.6); Troponin-I HS 2214 pg/mL (3.0-78.0)
[2024-07-30] MEDS: Mag Hydrox/Al Hydrox/Simeth 30 ML UDC PO (17:09)
[2024-07-30] MEDS: 0.9% Normal Saline (1000mL) 1,000 ML 100 ML IV (17:10)
[2024-07-30] MEDS: HEPARIN/D5w 25,000 UNITS 25,000 UNITS/250 ML IV.SOLN. 10 UNITS CONT INF (17:11)
[2024-07-30 17:33] LABS: Bedside Glucose 135 mg/dL (74-106)
[2024-07-30] MEDS: Morphine 2 MG/ML Syringe IV (20:04)
[2024-07-30] MEDS: 0.9% Saline Lock 10 ML Syringe IV ×3 (20:06→23:45)
[2024-07-30] MEDS: HYDROmorphone 1 MG/ML Syringe IV (20:48)
[2024-07-30 20:54] LABS: Troponin-I HS 7347 pg/mL (3.0-78.0)
[2024-07-30] MEDS: TICAGRELOR 90 MG TABLET PO (20:57)
[2024-07-30 21:20] LABS: Bedside Glucose 147 mg/dL (74-106)
[2024-07-30 23:15] LABS: Partial Thromboplast Time 31.4 Seconds (24.1-36.2)
[2024-07-30] MEDS: Heparin Injection (Vial) 5,000 UNIT/ML VIAL IV (23:44)
[2024-07-31] VITALS (11 sets, daily range): BP systolic 100–121; BP diastolic 63–88; PULSE 78–116; RESP 18–20; TEMP 36–36.7; O2SAT 93–96; BMI 40.4
[2024-07-31 00:47] LABS: Troponin-I HS 19145 pg/mL (3.0-78.0)
[2024-07-31 06:06] LABS: Basophil# 0.05 X10^3/uL; Basophil% 0.5 % (0-1); Eosinophil# 0.26 X10^3/uL; Eosinophils% 2.4 % (0-5); Hematocrit 42.9 % (40-54); Hemoglobin 13.6 g/dL (13.0-16.5); Lymphocyte % 14.9 % (19-41); Mean Corp Hgb Conc 31.7 g/dL (32-36); Mean Corpuscular Hgb 27.6 pg (27.0-32.0); Mean Corpuscular Volume 87.2 fL (80-94); Monocyte# 0.79 X10^3/uL; Monocyte% 7.4 % (0-10); NRBC Flagged by Analyzer 0 % (0-5); Neutrophil # 7.98 X10^3/uL (2.7-7.7); Neutrophil % 74.3 % (47-70); Platelet Count 185 K/mm3 (150-450); RBC Distribution Width CV 13.7 % (11.6-14.6); RBC Distribution Width SD 43.8 fl (35.1-43.9); Red Blood Count 4.92 M/mm3 (4.6-6.2); White Blood Count 10.7 K/mm3 (4.4-11.0)
[2024-07-31 06:15] LABS: Partial Thromboplast Time 44.7 Seconds (24.1-36.2)
[2024-07-31 06:43] LABS: ALB/GLOB Ratio 1.1 RATIO (0.9-2.4); AST(SGOT) 169 U/L (15-37); Alanine Aminotransfer ALT/SGPT 36 U/L (16-61); Albumin, Serum 3.8 g/dL (3.2-5.0); Alkaline Phosphatase 49 U/L (45-117); Anion Gap 8 (5-15); BUN 35 mg/dL (7-18); BUN/Creat Ratio 22.6 RATIO (10-20); Calcium,Total 9.1 mg/dL (8.5-10.1); Chloride 108 mmol/L (98-107); Cholesterol 99 mg/dL (200); Creatinine, Serum 1.55 mg/dL (0.70-1.30); EST Glomerular Filtration Rate 48 mL/min (>60); Est Glom Filt Rate - Afr Amer 58 mL/min (>60); Estimated Creatinine Clearance 65.86 ml/min; Globulin 3.4 g/dL (2.2-4.2); Glucose 179 mg/dL (74-106); High Density Lipoprotein 37 mg/dL; Potassium 4.3 mmol/L (3.5-5.1); Protein, Total 7.2 g/dL (6.4-8.2); Sodium Level 136 mmol/L (136-145); Triglycerides 229 mg/dL; Very Low Density Lipoprotein 46 mg/dL (5-40)
[2024-07-31] MEDS: Insulin Lispro 100 UNIT/ML INSULN.PEN SC ×4 (06:56→21:34)
[2024-07-31 07:08] LABS: Bedside Glucose 191 mg/dL (74-106)
[2024-07-31 08:57] LABS: Hemoglobin A1c 6.8 % (3.8-5.6)
[2024-07-31] MEDS: TICAGRELOR 90 MG TABLET PO ×2 (09:25→21:34)
[2024-07-31] MEDS: Metoprolol(XL)Succ 50 MG Tablet PO (09:25)
[2024-07-31] MEDS: Aspirin 81 MG TAB.CHEW PO (09:25)
[2024-07-31] MEDS: Isosorbide Mononitrate 60 MG Tablet PO (09:25)
[2024-07-31] MEDS: Ezetimibe 10 MG Tablet PO (09:26)
[2024-07-31] MEDS: Atorvastatin Calcium 80 MG Tablet PO (09:26)
[2024-07-31] MEDS: Fenofibrate 145 MG Tablet PO (11:07)
[2024-07-31] MEDS: Spironolactone 25 MG Tablet PO (11:07)
[2024-07-31] MEDS: Furosemide 20 MG Tablet PO (11:07)
[2024-07-31] MEDS: Insulin Glargine-YFGN 100 UNIT/ML Pen 15 UNIT SC (11:08)
[2024-07-31] MEDS: Nitroglycerin Oint 1 INCH PACKET TD ×3 (11:08→23:46)
[2024-07-31 11:32] LABS: Bedside Glucose 152 mg/dL (74-106)
[2024-07-31] MEDS: HEPARIN/D5w 25,000 UNITS 25,000 UNITS/250 ML IV.SOLN. 14 UNITS CONT INF (14:13)
[2024-07-31 17:07] LABS: Bedside Glucose 159 mg/dL (74-106)
[2024-07-31 20:38] LABS: Partial Thromboplast Time 39.5 Seconds (24.1-36.2)
[2024-07-31] MEDS: Heparin Injection (Vial) 5,000 UNIT/ML VIAL IV (21:40)
[2024-07-31 22:09] LABS: Bedside Glucose 162 mg/dL (74-106)
[2024-08-01 03:49] LABS: Absolute Lymphocyte Count 1.76 X10^3/uL (0.83-4.51); Absolute Neutrophil Count 6.2 X10^3/uL (2.0-7.7); Basophil# 0.05 X10^3/uL; Basophil% 0.5 % (0-1); Eosinophil# 0.26 X10^3/uL; Eosinophils% 2.8 % (0-5); Hematocrit 40.6 % (40-54); Lymphocyte # 1.76 X10^3/ul (0.83-4.51); Lymphocyte % 19.1 % (19-41); Mean Corpuscular Hgb 27.6 pg (27.0-32.0); Mean Corpuscular Volume 86.2 fL (80-94); Monocyte# 0.93 X10^3/uL; Monocyte% 10.1 % (0-10); NRBC Flagged by Analyzer 0 % (0-5); Neutrophil # 6.18 X10^3/uL (2.7-7.7); Neutrophil % 67.1 % (47-70); Platelet Count 171 K/mm3 (150-450); RBC Distribution Width CV 13.5 % (11.6-14.6); RBC Distribution Width SD 42.9 fl (35.1-43.9); Red Blood Count 4.71 M/mm3 (4.6-6.2); White Blood Count 9.2 K/mm3 (4.4-11.0)
[2024-08-01 03:59] LABS: Partial Thromboplast Time 64.5 Seconds (24.1-36.2)
[2024-08-01 04:45] LABS: Anion Gap 8 (5-15); BUN 32 mg/dL (7-18); BUN/Creat Ratio 19.9 RATIO (10-20); Calcium,Total 9.2 mg/dL (8.5-10.1); Chloride 107 mmol/L (98-107); Creatinine, Serum 1.61 mg/dL (0.70-1.30); EST Glomerular Filtration Rate 46 mL/min (>60); Est Glom Filt Rate - Afr Amer 55 mL/min (>60); Estimated Creatinine Clearance 63.43 ml/min; Glucose 158 mg/dL (74-106); Potassium 4.2 mmol/L (3.5-5.1); Sodium Level 136 mmol/L (136-145)
[2024-08-01 06:00] VITALS: BP 106/76; PULSE 93; RESP 18; TEMP 36.6; O2SAT 95; BMI 40.5
[2024-08-01] MEDS: Nitroglycerin Oint 1 INCH PACKET TD (06:07)
[2024-08-01] MEDS: 0.9% Saline Lock 10 ML Syringe IV (06:07)
[2024-08-01 06:08] VITALS: PULSE 93
[2024-08-01] MEDS: TICAGRELOR 90 MG TABLET PO (06:08)
[2024-08-01] MEDS: Aspirin 81 MG TAB.CHEW PO (06:08)
[2024-08-01] MEDS: Metoprolol(XL)Succ 50 MG Tablet PO (06:08)
[2024-08-01 06:59] VITALS: O2SAT 95
[2024-08-01 08:15] VITALS: BP 101/75; PULSE 81; RESP 16; TEMP 36.2; O2SAT 93
[2024-08-01 09:02] VITALS: BP 120/66
[2024-08-01] MEDS: 0.9% Normal Saline (1000mL) 1,000 ML 100 ML IV (09:47)
[2024-08-01 10:32] LABS: Partial Thromboplast Time 31.8 Seconds (24.1-36.2)
[2024-08-01] MEDS: Heparin Injection (Vial) 5,000 UNIT/ML VIAL IV (10:55)
[2024-08-01 11:07] VITALS: BP 129/97; PULSE 81; RESP 18; TEMP 36.5; O2SAT 92
[2024-08-01 11:11] LABS: Bedside Glucose 133 mg/dL (74-106)
== END 2024-08-01 11:32 | disposition short-term general hospital (02) | DRG 281 ==
LOC: ED 14:43 → PCU 15:09
PROVIDERS: Internal Medicine Cardiovascular Disease; Admitting Provider Family Medicine; Emergency Provider Emergency Medicine; PCP Family Medicine; Visit Provider Internal Medicine
DX: I21.4 Non-ST elevation (NSTEMI) myocardial infarction (principal); T82.855A Stenosis of coronary artery stent, initial encounter; Z68.41 Body mass index [BMI] 40.0-44.9, adult; E11.65 Type 2 diabetes mellitus with hyperglycemia; N18.32 Chronic kidney disease, stage 3b; I12.9 Hypertensive chronic kidney disease with stage 1 through stage 4 chronic kidney disease, or unspecified chronic kidney disease; E11.22 Type 2 diabetes mellitus with diabetic chronic kidney disease; E66.01 Morbid (severe) obesity due to excess calories; E78.00 Pure hypercholesterolemia, unspecified; I25.10 Atherosclerotic heart disease of native coronary artery without angina pectoris; Z79.4 Long term (current) use of insulin; I25.2 Old myocardial infarction; E66.813 Obesity, class 3; Z79.82 Long term (current) use of aspirin; Z79.02 Long term (current) use of antithrombotics/antiplatelets; Z95.5 Presence of coronary angioplasty implant and graft; Y71.2 Prosthetic and other implants, materials and accessory cardiovascular devices associated with adverse incidents
CPT/HCPCS: 36415; 71046; 80048; 80053; 80061; 82962; 83036; 83735; 84484; 85025; 85610; 85730; 93005; 93306; 93454; 99152; 99153; 99285; J7030; J7040; Q9957; Q9967; A4216; C1769; C1894; C8929; J2405